=== PATIENT | male | born 1940 | race Caucasian/White ===

== ENCOUNTER 2021-01-24 02:29 | Inpatient (IN) ==
[2021-01-24 04:25] LABS: Basophils # (auto) 0.02 K/uL (0-0.2); Basophils % (auto) 0.2 %; Eosinophils # (auto) 0.04 K/uL (0-0.5); Eosinophils % (auto) 0.5 %; Hematocrit (blood only) 36.1 % (42-52); Hemoglobin 12.3 g/dL (14.0-18.0); Lymphocytes # (auto) 1.28 K/uL (1.2-3.4); Lymphocytes % (auto) 15.8 %; Mean Corpuscular Hemoglobin 33.3 pg (25-34); Mean Corpuscular Hgb Conc 34.1 g/dL (32-36); Mean Corpuscular Volume 97.8 fL (80-100); Mean Platelet Volume 10.7 fL (7.4-10.4); Monocytes # (auto) 0.46 K/uL (0.11-0.59); Monocytes % (auto) 5.7 %; Neutrophils # (auto) 6.32 K/uL (1.4-6.5); Neutrophils % (auto) 77.8 %; Platelet Count 145 K/uL (130-400); RDW Coefficient of Variation 13.8 % (11.5-14.5); Red Blood Count 3.69 M/uL (4.7-6.1); White Blood Count 8.12 K/uL (4.8-10.8)
[2021-01-24 04:41] LABS: Alanine Aminotransferase 45 (12-78); Albumin Level 3.6 gm/dl (3.4-5.0); Aspartate Aminotransferase 38 U/L (15-37); BUN Creatinine Ratio 22.2 (10-20); Blood Urea Nitrogen 33 mg/dl (7-18); Calcium 9.4 mg/dl (8.5-10.1); Carbon Dioxide 27 mmol/L (21-32); Chloride 108 mmol/L (98-107); Est GFR (African American) 50.2 ml/min; Est GFR (Non-African American) 43.3 ml/min; Glucose 174 mg/dl (70-99); Potassium 4.5 mmol/L (3.5-5.1); Sodium 139 mmol/L (136-145)
[2021-01-24] MEDS ORDERED: SODIUM CHLORIDE 0.9% 500 ML IV ONE (04:49)
[2021-01-24 05:12] LABS: Albumin Globulin Ratio 1.2 (0.9-2); Alkaline Phosphatase 96 U/L (45-117); Bilirubin,Total 1.6 mg/dl (0.2-1); Globulin 3.1 gm/dl (2.5-4.0); Total Protein 6.7 gm/dl (6.4-8.2); Troponin I 0.078 ng/ml (0-0.045)
[2021-01-24] MEDS ORDERED: ASPIRIN CHEW 324 MG PO STA (06:16)
[2021-01-24] MEDS ORDERED: OLANZapine ZYDIS 5 MG ORALLY DIS. TAB PO STA (06:16)
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
[2021-01-24] MEDS ORDERED: OLANZapine 10 MG/2.1 ML SDV IM ONE (07:52)
[2021-01-24] MEDS ORDERED: OLANZapine 10 MG/2.1 ML SDV IM PRN (07:59)
[2021-01-24] MEDS ORDERED: SODIUM CHLORIDE 0.9% 1000ML 1,000 ML IV SCH (07:59)
[2021-01-24] MEDS ORDERED: NITROGLYCERIN SL 0.4 MG/TAB TAB SL PRN (07:59)
[2021-01-24] MEDS ORDERED: PATIENT'S HEIGHT AND/OR WEIGHT NEEDED SCH (08:15)
--- NOTE | 2021-01-24 08:51 | History and Physical Report ---
DATE OF ADMISSION: 01/24/2021. CHIEF COMPLAINT: Agitation. HISTORY OF PRESENT ILLNESS: An 80-year-old male with past medical history significant for type 2 diabetes, aortic ectasia of the abdominal, aortic regurgitation, aortic root dilatation, history of benign neoplasm of colon, chronic kidney disease stage III, hypertension, history of dementia, history of thrombocytopenia, history of ST elevated NE, presents with agitation. The patient lives with his . states the patient is getting more confused and agitated at home for the last 1 week. Saw family doctor, has prescribed Seroquel. He just got one dose last night and was getting more agitated and she called the die tripper last night. The patient was combative with the die tripper, unable to calm him, die tripper brought him here. Labs are okay except for some slight elevation of troponin. The patient is currently resting comfortably, hemodynamically stable. is in the room. gives most of the history. There was no fever or chills. No cough, no nausea, no vomiting, no complaints of any pain, no diarrhea or constipation. He walks without support, but gait is somewhat unsteady. His appetite is down for the last 1 week. The patient is somewhat sleepy, but he is talking okay, says he is doing okay and he is hallucinating, he is seeing some bugs and people in the room, but he seems calmer. ALLERGIES: PENICILLINS. PAST MEDICAL HISTORY: As mentioned above. PAST SURGICAL HISTORY: Colonoscopies, cataracts. MEDICATIONS: As per the , patient is on Seroquel 50 mg p.o. at bedtime, Ativan 0.5 mg p.o. 8 hours p.r.n., Imdur 60 mg p.o. daily in the morning, losartan 100 mg p.o. daily, Toprol-XL 12.5 mg p.o. daily, glipizide 5 mg b.i.d., hydrochlorothiazide 12.5 mg p.o. daily, metformin 500 mg p.o. b.i.d., magnesium 400 mg p.o. daily on Monday, Monday, and Monday; amlodipine 5 mg p.o. daily, atorvastatin 80 mg p.o. daily, Nitrostat 0.4 mg p.o. sublingual p.r.n., azithromycin 500 mg, aspirin 81 mg p.o. daily. FAMILY HISTORY: Significant for mother has diabetes, cancer of unknown type; father had NE. SOCIAL HISTORY: , lives with . Former smoker, quit in 1985, smoked 1 pack a day for 13 years. History of occasional drinking before, not drinking currently. No drug use. REVIEW OF SYSTEMS: As per HPI. Could not get review of systems as the patient is confused, has dementia and hallucinating. PHYSICAL EXAMINATION: VITAL SIGNS: Temperature 36.5, pulse 74, respiratory rate 18, blood pressure 116/40, oxygen 95% on room air. HEENT: Pupils equal, round and reactive to light. Oral mucosa moist. Atraumatic. NECK: No neck masses seen. CARDIOVASCULAR: S1 and S2 heard. Regular rate and rhythm. No murmur, no gallop. RESPIRATORY SYSTEM: Normal AP diameter. No accessory muscle use. No wheezing, no crackles. ABDOMEN: Soft, bowel sounds present, nontender, no distention. CENTRAL NERVOUS SYSTEM: Sleepy, but oriented to name and place. Obeys simple commands. No facial droop. Speech is clear. Moves extremities. EXTREMITIES: No edema, no erythema. LABORATORY DATA: WBC 8.1, hemoglobin 12.3, hematocrit 36.1, platelets 145. Sodium 139, potassium 4.5, chloride 108, bicarbonate 27, BUN 33, creatinine 1.5, serum glucose 174, calcium 9.4, total bilirubin 1.6, AST 38, ALT 45, alkaline phosphatase 96. Troponin-I 0.07. TSH 2.4. IMAGING DATA: CT of the head, preliminary report, no acute findings. Chest x- ray, no acute findings. EKG: Atrial paced rhythm with prolonged AV conduction, left axis deviation, right bundle-branch block. ASSESSMENT AND PLAN: An 80-year-old male who was brought in from home for agitation. 1. Agitation: The patient is known to have a history of dementia, recently started with Seroquel by PCP, got one dose last night as per the . CT of the head, preliminary report unremarkable. Labs unremarkable except for mild troponin elevation. We will get a vitamin B12, vitamin B1 and folic acid levels. Monitor in the med [facility]. ER ordered p.o. Zyprexa, we will place him on IM Zyprexa 2.5 mg q. 4 hours p.r.n. Consult Neurology and consult psychiatrist for further recommendation, one-on-one observation in the hospital. says, if needed she is okay for placement in a halfway. 2. History of tachybrady syndrome, status post pacemaker. 3.Mild elevation of troponin, mostly demand ischemia. Follow serial cardiac enzymes and echocardiogram. EKG, no acute findings. 4. History of severe aortic regurgitation. Monitor for volume status, recent Cardiology visit recommended nonsurgical medical management. 5. Acute kidney injury and chronic kidney disease stage III, baseline creatinine 1.2, present creatinine 1.5. Getting gentle fluids. We will follow the repeat labs in the a.m. 6. Diabetes. Hold his home meds, placed on insulin sliding scale. Follow the blood sugars. Follow HbA1c levels. 7. History of coronary artery disease, status post drug-eluting stents to LAD. Continue his home medications. 8.enlargement in aortic root. Follows with Cardiology and follow the echocardiogram. 9. Hyperlipidemia: Continue statin. 10. Hypertension: Continue his home medication of losartan, metoprolol, amlodipine and Imdur. We will follow the blood pressure. 11. History of anemia Seemed followed up with Hematology in 08/2018 and observation recommended. 12. History of thrombocytopenia, platelets are okay and will follow the labs. 13. Deep venous thrombosis prophylaxis: Placed on Lovenox. 14. Mild elevation in total bilirubin, we will follow the repeat labs DISPOSITION: . Admit to med tele. PT/OT prior to discharge. Social service to help with discharge planning. Level 1 full code as per my discussion with the . Job ID: [id number] MTDD
[2021-01-24] MEDS: ENOXAPARIN INJ 40 MG/0.4 ML SYR SQ SCH (09:00)
[2021-01-24] MEDS ORDERED: LORazepam 2 MG/4 ML VIAL ONE (09:13)
--- NOTE | 2021-01-24 09:13 | XRay Report ---
XR chest 1V portable CLINICAL HISTORY: weakness. Evaluate cardiopulmonary status COMPARISON STUDY: 07/07/2020 TECHNIQUE: 1 view of the chest FINDINGS: Single frontal view of the chest demonstrates the cardiomediastinal silhouette to be within normal li mits. Precardiac pacer is again seen. The lungs are clear of alveolar opacities. There is no evidence for pleural effusion. There is no evidence for vascular congestion. There is no acute osseous pathol ogy. IMPRESSION: No acute cardiopulmonary disease. ACT 112: Negative or not required by law. Electronically signed by: Darwin Dallas M.D. 01/24/2021 9:12 AM
--- NOTE | 2021-01-24 09:21 | CT Scan Report ---
CT head/brain wo con CLINICAL HISTORY: AMS COMPARISON STUDY: No previous studies for comparison. CT DOSE: 691.05 mGy.cm TECHNIQUE: Standard CT of the Brain was performed without IV contrast. A dose lowering technique was utilized adhering to the principles of ALARA. FINDINGS: Extraaxial space: There is no evidence for subdural hematoma. There are no extra-axial fluid collecti ons. Ventricles and cisterns: The ventricles are mildly to moderately dilated bilaterally. There is no ev idence for midline shift or mass effect. Parenchyma: There is no subarachnoid or intraparenchymal hemorrhage. There is no evidence for an acu te infarct or cerebral edema. There is mild cerebral cortical atrophy and decreased attenuation in th e periventricular white matter representing remote small vessel disease. There are no gross mass lesi ons. Osseous structures: There is no evidence for an acute fracture. The visualized paranasal sinuses are clear. The mastoid air cells are clear bilaterally. Soft tissues: There is no evidence for focal soft tissue swelling. IMPRESSION: No acute intracerebral pathology. Cerebral cortical atrophy and remote small vessel disea se are seen. ACT 112: Negative or not required by law. Electronically signed by: Darwin Dallas M.D. 01/24/2021 9:19 AM
[2021-01-24] MEDS: INSULIN ASPART PER UNIT SC SCH ×4 (09:29→20:28)
--- NOTE | 2021-01-24 15:27 | Communication Note ---
Date of Service: January 24, 2021 Chart reviewed Patient seen examined bedside Patient's at bedside Seen sitting up in bed, not in distress, confused, but calm and cooperative Oriented to 's name, but not to place and time Vitals as noted Not in distress Clear breath sounds bilaterally bilaterally, normal regular rhythm no murmurs Abdomen soft nontender No edema noted Possible underlying cognitive disorder, with behavioral disturbance Discussed with psychiatrist Dr. Monzon Recommend Seroquel 12.5 mg p.o. twice daily, Zyprexa 2.5 mg IM every 6 hours as needed for agitation Does not recommend Ativan as needed Continue reorientation, delirium prevention strategies Yuval Joaquin MD
[2021-01-24] MEDS ORDERED: GLUCOSE 10 TABS/TUBE PO PRN (15:30)
[2021-01-24] MEDS ORDERED: GLUCAGON FOR INJ 1 MG VIAL IM PRN (15:30)
[2021-01-24] MEDS ORDERED: GLUCOSE 40% GEL 15 GM TUBE PO PRN (15:30)
[2021-01-24] MEDS ORDERED: DEXTROSE 50% 50 ML SYRINGE IV PRN (15:30)
[2021-01-24] MEDS ORDERED: CARBOHYDRATES FOR HYPOGLYCEMIA PO PRN (15:30)
--- NOTE | 2021-01-24 15:41 | Psychiatric Consultation ---
Date of Consultation January 24, 2021 Impression / Recommendations Impression 80 yo man with major neurocognitive disorder with behavioral disturbance with worsening agitation and confusion over the last week. This could represent worsening of his dementia versus superimposed delirium. Appropriate to start seroquel given level of aggression and agitation causing danger to himself and others though recommend using the lowest necessary dose given black box risk for increased all cause mortality in dementia and potential for QTc changes and he presented with some concern for cardiac changes. (1) Major neurocognitive disorder due to Alzheimer's disease, with behavioral disturbance: -Needs 1-1 for now for behavioral redirection -Start seroquel 12.5 mg BID for agitation -For behavioral emergency could use olanzapine 2.5 mg IM x1 (up to max of 10mg per 24 hours). Evaluate QTc if multiple IM doses are needed in a day. -May require higher level of care given worsening agitation -Continue with medical workup to rule out causes for reversible delirium adding to agitation and confusion -Continue with delirium prevention with frequent re-orientation, attempting to open blinds during the day, having pictures/phone calls or visits from family, can use melatonin 3mg qhs if sleep is disrupted -Discussed with Dr. Joaquin Psych History Identifying Data 80 yo man with major neurocognitive disorder and multiple medical comorbidities was admitted medically after increased behaviors of agitation at home. Psychiatry was consulted for medication management and recommendations. Chief Complaint "Isn't she a nice lady, she has some May in her". History of Present Illness Aureliano Day is resting in bed comfortably on assessment. Is not oriented to place or time. When given option of being in school vs cheondoism vs hospital he responds "it's all of them". is receptive to re-orientation of being in the hospital. Pleasantly discusses his - and speaks about enjoying going to the [employer] though has notable word finding difficulty. Does not recall or understand why he is in the hospital. Per chart review he was started on seroquel 25mg qhs yesterday by his PCP for increased aggression at home and confusion over the last 1 week. Yesterday family gave him the seroquel but aggression persisted resulting in family needing to call police who then brought him to the hospital. Code trejo this morning for behavioral agitation and aggression resulting in olanzapine 2.5mg IM x1. Past Psychiatric History Previous Psych History: none known Allergies Allergy/AdvReac Type Severity Reaction Status Date / Time Penicillins Allergy Intermediate TOES Unverified 01/24/21 14:46 SWELL/ITCHY Home Medications Medication Instructions Recorded Confirmed Type amlodipine 5 mg tablet 5 mg PO DAILY 07/07/20 01/24/21 History glipizide 5 mg tablet 5 mg PO BID 07/07/20 01/24/21 History hydrochlorothiazide 12.5 mg capsule 12.5 mg PO DAILY 07/07/20 01/24/21 History isosorbide mononitrate 60 mg 60 mg PO QAM 07/07/20 01/24/21 History tablet,extended release 24 hr aspirin 81 mg tablet,delayed 81 mg PO DAILY 01/24/21 01/24/21 History release atorvastatin 80 mg tablet 80 mg PO DAILY 01/24/21 01/24/21 History azithromycin 500 mg tablet 500 mg PO DAILY 01/24/21 01/24/21 History ergocalciferol (vitamin D2) 1,000 10 mcg PO DAILY 01/24/21 01/24/21 History unit capsule lorazepam 0.5 mg tablet 0.5 mg PO BID PRN 01/24/21 01/24/21 History losartan 100 mg tablet 100 mg PO DAILY 01/24/21 01/24/21 History metformin 500 mg tablet 500 mg PO BID 01/24/21 01/24/21 History metoprolol succinate 25 mg capsule 25 mg PO DAILY 01/24/21 01/24/21 History sprinkle, ext. release 24 hr nitroglycerin 0.4 mg sublingual 0.4 mg SUBLINGUAL DAILY 01/24/21 01/24/21 History tablet quetiapine 50 mg tablet (Seroquel) 50 mg PO HS 01/24/21 01/24/21 History Personal History Living Arrangements: Home (with his and daughter) Beliefs That Will Affect Care: None Patient History Medical History Agitation due to dementia Aortic regurgitation CKD (chronic kidney disease), stage III Type 2 diabetes mellitus with unspecified complications Surgical History H/O colonoscopy History of appendectomy Social History Smoking Status: Never smoker Second Hand Exposure: No; Do You Dip or Chew Tobacco: No; Tobacco Cessation Education Requested by Patient: No Hx Alcohol Use: No Hx Substance Use: No Preferred Language: Monegasque Communication Ability: Effective Accredited Farm Manager Required: No Beliefs That Will Affect Care: None Current Living Situation: Spouse Other Information That Helps Us Care for You: No Feels Safe at Home: Yes Safety Concerns: Feels Safe At This Time Assistive Devices: Glasses Physical Exam Psychiatric: Orientation: alert and oriented to person; + not oriented to place and + not oriented to time Apperance: appropriately dressed and appropriately groomed Eye Contact: good eye contact Motor Behavior: no abnormal motor movements; n EPS Speech: normal rate/rhythm/volume of speech Affect: euthymic affect Mood: no depressed mood, no anxious mood and no irritable mood Thought Process: + concrete thought process Thought Content: reality based without delusions Suicidal Thoughts: denies suicidal thoughts Homicidal Thoughts: denies homicidal thoughts Hallucinations: no auditory hallucinations and no visual hallucinations Cognition: remote memory grossly intact and attention grossly intact; + recent memory not intact and + language not intact Insight: + impaired insight Judgement: + severely impaired judgement Vital Signs (Past 24 Hours): Last Vital Signs Temp 36.7 C 01/24/21 10:00 Pulse 76 01/24/21 12:03 Resp 20 01/24/21 12:03 BP 165/63 H 01/24/21 12:03 Pulse Ox 97 01/24/21 12:03 Review of Systems Unobtainable due to cognitive status (he denies any pain ) Results & Data (PSY) Medications Administered Enoxaparin Sodium (Enoxaparin Inj 40 Mg/0.4 Ml Syr) 40 mg SQ Q24H [facility] Stop: 02/23/21 08:59 Last Admin: 01/24/21 09:00 Dose: 40 mg Documented by: [id number] Insulin Aspart (Insulin Aspart Per Unit) 0 units SC ACHS [facility] Stop: 02/23/21 07:58 Last Admin: 01/24/21 14:04 Dose: 9 units Documented by: [id number] Cosigned by: [id number] Admin: 01/24/21 09:29 Dose: Not Given Documented by: [id number] Coding Level of Care Code 03012 Inpt Consult Level 2 Diagnoses Major neurocognitive disorder due to Alzheimer's disease, with behavioral disturbance G30.9; F02.81
[2021-01-24 15:42] LABS: Appearance Urine Clear (Clear); Bilirubin Urine Negative (Negative); Blood Urine Negative (Negative); Color Urine Yellow; Glucose Urine UA 2+ (Negative); Ketones Urine Negative (Negative); Leukocyte Esterase Urine Negative (Negative); Nitrite Urine Negative (Negative); Protein Urine Negative (Negative); Specific Gravity Urine 1.011 (1.000-1.030); Urobilinogen Urine Negative (Negative); pH Urine 7.5 (4.5-7.5)
[2021-01-24] MEDS: OLANZapine 10 MG/2.1 ML SDV IM PRN (20:29)
[2021-01-24] MEDS: QUEtiapine FUMARATE 25 MG TABLET PO SCH (20:40)
--- NOTE | 2021-01-24 21:51 | Electrocardiogram Report ---
Test Reason : Blood Pressure : / mmHG Vent. Rate : 064 BPM Atrial Rate : 064 BPM P-R Int : 304 ms QRS Dur : 140 ms QT Int : 468 ms P-R-T Axes : 035 -33 -06 degrees QTc Int : 482 ms Atrial-paced rhythm with prolonged AV conduction Left axis deviation Right bundle branch block Minimal voltage criteria for LVH, may be normal variant Septal infarct , age undetermined Abnormal ECG When compared with ECG of 07-JUL-2020 14:48, Septal infarct is now Present Confirmed by Aureliano Sol ([id number]) on 01/24/2021 9:50:41 PM Referred By: REFERRED SELF Confirmed By:Aureliano Sol
--- NOTE | 2021-01-24 22:03 | Consultation Report ---
NEUROLOGY CONSULTATION NOTE DATE OF CONSULTATION: 01/24/2021. CHIEF COMPLAINT: Agitation. HISTORY OF PRESENT ILLNESS: An 80-year-old male with history of dementia as well as other comorbidit ies including type 2 diabetes, chronic kidney disease and hypertension, brought to the Emergency Depa rtment last evening for agitation. The patient lives at home with his . He is a poor historian; therefore, history is limited. is not at bedside. According to the chart, the patient was bro ught in confused and agitated; last week, he has been on and off more agitated at home. He did see t family doctor and was prescribed Seroquel. He received one dose last night was getting more agita wally and the police were called. The patient was combative toward the mental health program specialist and they were unable to ca lm him down, therefore, he was brought to the Emergency Department. He had no fevers or chills. He was hemodynamically stable. was concerned that he may need potential correction facility p lacement as she was having a difficult time taking care of him. There was reported visual hallucinat ions including seeing bugs and people in the room, but he seems to be calmer when he was seen in the Emergency Department. Psychiatry as well as neurology were consulted upon admission. ALLERGIES: PENICILLINS. PAST MEDICAL HISTORY: Type 2 diabetes, hypertension, benign neoplasm of the colon, chronic kidney di sease, dementia, thrombocytopenia, history of ST elevated MS. PAST SURGICAL HISTORY: Colonoscopy, cataract surgery. HOME MEDICATIONS: Seroquel 50 mg at bedtime, Ativan as needed, Imdur, Toprol-XL, glipizide, hydrochl orothiazide, metformin, magnesium, atorvastatin, azithromycin, aspirin 81 mg daily. FAMILY HISTORY: Mother has diabetes and cancer of unknown type. Father had myocardial infarction. SOCIAL HISTORY: He is and lives with his . Former smoker, quit in 1985, history of occa sional drinking. No illicit drug use. REVIEW OF SYSTEMS: Unable to be obtained due to severe dementia. PHYSICAL EXAMINATION: VITAL SIGNS: Blood pressure 158/55, pulse is 78, respiratory rate is 20, temperature is 36.7 degrees Celsius, oxygen saturation is 97% on room air. GENERAL: The patient appears stated age, thin-appearing male, no distress, he is lying in bed, uprig ht. HEENT: Head is normocephalic and atraumatic. He has normal eyelids. Normal conjunctivae. NECK: Supple. LUNGS: Normal respiratory effort. CARDIAC: Pulses are intact. ABDOMEN: Nondistended. SKIN: No skin rash. PSYCHIATRIC: Normal mood currently, normal affect. NEUROLOGIC: He is awake, alert, disoriented to place, disoriented to age, disoriented to time, orien wally to his name only. Attention is decreased. Knowledge is poor. He is following simple commands. His speech is clear. His pupils are symmetric. His eyes are midline. Facial sensation is intact. No facial asymmetry. Intact hearing. Palate is symmetric. He is holding his head upright. His to ngue is midline. Gait evaluation deferred. No tremor on exam. Sensation is intact to light touch. Muscle tone is normal. DIAGNOSTIC TESTING AND LABORATORY VALUES: WBC 8.12, hemoglobin 12.3, platelet count 145. Sodium is 139, potassium 4.5, chloride 108, carbon dioxide 27, BUN is 33, creatinine 1.5. Urinalysis was clear , 2+ glucose, no bacteria. IMAGING: Head CT noncontrast showed no acute intracranial abnormality. Cerebral cortical atrophy an d remote small vessel ischemic disease. Chest x-ray showed no acute cardiopulmonary disease. COVID-19 was negative. ASSESSMENT AND PLAN: An 80-year-old male with presumed severe Alzheimer's dementia with intermittent hyperactive delirium/agitation. Case discussed with psychiatry this afternoon and agree with use of Seroquel 12.5 mg twice daily, which can be titrated as tolerated. While admitted to the hospital, w ould strongly recommend avoiding narcotics or benzodiazepines or other sedative agents such as Benadr yl. If necessary, can use Zyprexa IM 2.5-5 mg q.12 hours as needed. If agitation persists despite t he use of Seroquel, would recommend adding Depakote 250 mg twice daily and titrating as tolerated. Audelia miner, please contact me with any additional questions or concerns. The patient can follow otherw ise up with his PCP upon discharge as needed. Job ID: [id number]
[2021-01-25 05:46] LABS: Basophils # (auto) 0.02 K/uL (0-0.2); Basophils % (auto) 0.2 %; Eosinophils # (auto) 0.01 K/uL (0-0.5); Eosinophils % (auto) 0.1 %; Hemoglobin 13.8 g/dL (14.0-18.0); Immature Granulocytes # (auto) 0.02 K/uL (0.00-0.02); Immature Granulocytes % (auto) 0.2 %; Lymphocytes # (auto) 1.43 K/uL (1.2-3.4); Lymphocytes % (auto) 16.1 %; Mean Corpuscular Hemoglobin 32.5 pg (25-34); Mean Corpuscular Hgb Conc 33.7 g/dL (32-36); Mean Corpuscular Volume 96.5 fL (80-100); Mean Platelet Volume 10.5 fL (7.4-10.4); Monocytes # (auto) 0.57 K/uL (0.11-0.59); Monocytes % (auto) 6.4 %; Neutrophils # (auto) 6.81 K/uL (1.4-6.5); Platelet Count 140 K/uL (130-400); RDW Coefficient of Variation 13.8 % (11.5-14.5); RDW Standard Deviation 48.8 fL (36.4-46.3); Red Blood Count 4.25 M/uL (4.7-6.1); White Blood Count 8.86 K/uL (4.8-10.8)
[2021-01-25 06:19] LABS: Partial Thromboplastin Ratio 0.9; Partial Thromboplastin Time 23.9 Seconds (21.0-31.0); Prothrombin Time 10.4 Seconds (9.0-12.0)
[2021-01-25 06:39] LABS: BUN Creatinine Ratio 17.6 (10-20); Bilirubin Direct 0.3 mg/dl (0-0.2); Bilirubin,Total 2.6 mg/dl (0.2-1); Creatinine Clr Calc Pharmacy 43.6 ml/min; Est GFR (African American) 64.5 ml/min; Est GFR (Non-African American) 55.6 ml/min; Potassium 4.4 mmol/L (3.5-5.1); Total Protein 7.6 gm/dl (6.4-8.2)
[2021-01-25 07:21] LABS: Magnesium 1.8 mg/dl (1.8-2.4)
[2021-01-25 07:34] LABS: Folate (Folic Acid) 13.9 ng/ml (>5.38)
[2021-01-25 07:39] LABS: Estimated Average Glucose 157 mg/dl; Hemoglobin A1C 7.1 % (4.5-5.6)
[2021-01-25] MEDS: INSULIN ASPART PER UNIT SC SCH ×4 (09:41→20:23)
[2021-01-25] MEDS: ENOXAPARIN INJ 40 MG/0.4 ML SYR SQ SCH (10:09)
[2021-01-25] MEDS: QUEtiapine FUMARATE 25 MG TABLET PO SCH ×2 (10:09→20:06)
[2021-01-25] MEDS: hydrALAZINE HCL 20 MG/ML VIAL IV PRN (12:22)
--- NOTE | 2021-01-25 13:17 | Hospitalist Progress Note ---
Date of Service January 25, 2021 Assessment & Plan (1) Major neurocognitive disorder due to Alzheimer's disease, with behavioral disturbance: Plan: ASSESSMENT AND PLAN: An 80-year-old male who was brought in from home for agitation. 1. Major neurocognitive disorder, due to Alzheimer's disease, with behavioral disturbance Per admitting physician's notes: The patient is known to have a history of dementia, recently started with Seroquel by PCP, got one dose last night as per the . CT of the head, preliminary report unremarkable. Labs unremarkable except for mild troponin elevation. Evaluated by neurology and psychiatry service Recommend Seroquel 12.5 mg p.o. twice daily Zyprexa 2.5 mg every 6 hours as needed for agitation No benzodiazepines, narcotics, Benadryl If agitation continues, recommend Depakote 2. History of tachybrady syndrome, status post pacemaker. Monitor in telemetry unit 3.Mild elevation of troponin, mostly demand ischemia. Troponin went down from 0.3, to 0.2 EKG no acute ischemia Echocardiogram: Pending as patient is agitated 4. History of severe aortic regurgitation. Euvolemic Recent Cardiology visit recommended nonsurgical medical management. 5. Acute kidney injury and chronic kidney disease stage III, baseline cre atinine 1.2, present creatinine 1.5. Resolved after IV fluids 6. Diabetes. Hold his home meds, placed on insulin sliding scale. a1c 7.1 7. History of coronary artery disease, status post drug-eluting stents to LAD. Continue his home medications. 8.enlargement in aortic root. Follows with Cardiology and follow the echocardiogram. 9. Hyperlipidemia: Continue statin. 10. Hypertension: BP elevated, likely secondary to agitation As needed hydralazine ordered Continue his home medication of losartan, metoprolol, amlodipine and Imdur. 11. History of anemia followed up with Hematology in 08/2018 and observation recommended. 12. History of thrombocytopenia Plt stable 13. Deep venous thrombosis prophylaxis: Placed on Lovenox. 14. Mild elevation in total bilirubin Check liver ultrasound Admission and Anticipated Discharge Date Admission Date: January 24, 2021 Subjective ff up for altered mental status, agitation, etc seen resting in bed, sleeping not in distress per [employer]ION[employer] EDUCATION MANAGER, has been calm, cooperative so far didnt eat much for breakfast no other symptoms Review of Systems Review of Systems: Unobtainable due to cognitive status Physical Exam Physical Exam: General- sleeping, breathing with no effort or accessory muscle use Eyes- anicteric Neck- no JVD Lungs- clear breath sounds bilaterally, no rales/wheezes Heart- normal rate, regular rhythm; no murmurs Abdomen- normal bowel sounds, nondistended, soft, nontender Extremities- no pretibial edema, no calf tenderness Neuro- sleeping Skin- warm & dry Results & Data Results & Data ([facility]) Vital Signs (Past 12 Hours) Vital Signs Temp Pulse Resp BP Pulse Ox 01/25/21 09:33 36.3 C L 105 H 18 166/60 H 94 all noted and reviewed including below
--- NOTE | 2021-01-25 13:32 | Psychiatric Progress Note ---
Date of Service January 25, 2021 Impression / Recommendations Impression 80 yo man with major neurocognitive disorder with behavioral disturbance with worsening agitation and confusion over the last week. This could represent worsening of his dementia versus superimposed delirium. Appropriate to start seroquel given level of aggression and agitation causing danger to himself and others though recommend using the lowest necessary dose given black box risk for increased all cause mortality in dementia and his elevated QTc. Risks/benefit profile continues to favor low dose antipsychotic use, even with QTc changes, given high level of aggression but QTc will need to be monitored closely. 01/25/21: Elevated QTc on EKG yesterday. Likely from high dose of IM olanzapine earlier in the day (10mg) on arrival to the ED. Recommend daily EKGs and continuing to utilize behavioral strategies for redirection as much as possible to avoid IM medications as much as possible. (1) Major neurocognitive disorder due to Alzheimer's disease, with behavioral disturbance: 01/25/21: Daily EKGs due to QTc prolongation, may want to consider cardiology input re: safety of ongoing use of QTc prolonging agents, continue with seroquel 12.5 mg BID, for behavioral emergency olanzpaine 2.5 mg IM x 1 (not to exceed 10mg per 24 hours). 01/24/21: -1-one-1 for now for behavioral redirection -Start seroquel 12.5 mg BID for agitation -For behavioral emergency could use olanzapine 2.5 mg IM x1 (up to max of 10mg per 24 hours). Evaluate QTc if multiple IM doses are needed in a day. -May require higher level of care given worsening agitation -Continue with medical workup to rule out causes for reversible delirium adding to agitation and confusion -Continue with delirium prevention with frequent re-orientation, attempting to open blinds during the day, having pictures/phone calls or visits from family, can use melatonin 3mg qhs if sleep is disrupted -Discussed with Dr. Joaquin Interval History Identifying Information 80 yo man with major neurocognitive disorder and multiple medical comorbidities was admitted medically after increased behaviors of agitation at home. Psychiatry was consulted for medication management and recommendations. Chief Complaint "I need my suitcase". Review of Systems Notes Unable to assess ROS due to cognitive impairment. Subjective Subjective Patient was seen & assessed and interval progress reviewed. Received olazapine 2.5 mg IM at ~2pm yesterday and again at ~8pm. Took po seroquel. Today lying in bed moving his legs around but resistant to staff efforts to help him readjust. He is not oriented. Significant word finding difficulty. Unable to converse Physical Exam Psychiatric Orientation: alert and oriented to person; + not oriented to place and + not oriented to time Apperance: appropriately dressed and appropriately groomed Eye Contact: good eye contact Motor Behavior: no abnormal motor movements; n EPS Speech: normal rate/rhythm/volume of speech Affect: euthymic affect Mood: no depressed mood, no anxious mood and no irritable mood Thought Process: + concrete thought process Thought Content: reality based without delusions Suicidal Thoughts: denies suicidal thoughts Homicidal Thoughts: denies homicidal thoughts Hallucinations: no auditory hallucinations and no visual hallucinations Cognition: remote memory grossly intact and attention grossly intact; + recent memory not intact and + language not intact Insight: + impaired insight Judgement: + severely impaired judgement Vital Signs (Past 24 Hours) Last Vital Signs Temp 36.3 C L 01/25/21 09:33 Pulse 105 H 01/25/21 09:33 Resp 18 01/25/21 09:33 BP 166/60 H 01/25/21 09:33 Pulse Ox 94 01/25/21 09:33 Results & Data ([facility]) Laboratory Results Laboratory Results - last 24 hr 01/24/21 01/24/21 01/24/21 15:25 15:48 16:50 WBC RBC Hgb Hct MCV MCH MCHC RDW Std Deviation RDW Coeff of Tg Plt Count MPV Immature Gran % (Auto) Neut % (Auto) Lymph % (Auto) [place] % (Auto) Eos % (Auto) Baso % (Auto) Neut # (Auto) Lymph # (Auto) [place] # (Auto) Eos # (Auto) Baso # (Auto) Immature Gran # (Auto) PT INR APTT PTT Ratio Sodium Potassium Chloride Carbon Dioxide Anion Gap BUN Creatinine Est Cr Clr Drug Dosing Est GFR ( Amer) Est GFR (Non-Af Amer) BUN/Creatinine Ratio Glucose POC Glucose 132 H Estimat Average Glucose Hemoglobin A1c Calcium Magnesium Total Bilirubin Direct Bilirubin AST ALT Alkaline Phosphatase Troponin I 0.263 H* Total Protein Albumin Whole Bld Vitamin B1 Vitamin B12 Folate Urine Color Yellow Urine Appearance Clear Urine pH 7.5 Ur Specific Bradley 1.011 Urine Protein Negative Urine Glucose (UA) 2+ H Urine Ketones Negative Urine Blood Negative Urine Nitrite Negative Urine Bilirubin Negative Urine Urobilinogen Negative Ur Leukocyte Esterase Negative 01/24/21 01/25/21 01/25/21 20:25 05:37 05:37 WBC RBC Hgb Hct MCV MCH MCHC RDW Std Deviation RDW Coeff of Tg Plt Count MPV Immature Gran % (Auto) Neut % (Auto) Lymph % (Auto) [place] % (Auto) Eos % (Auto) Baso % (Auto) Neut # (Auto) Lymph # (Auto) [place] # (Auto) Eos # (Auto) Baso # (Auto) Immature Gran # (Auto) PT 10.4 INR 1.0 APTT 23.9 PTT Ratio 0.9 Sodium 142 Potassium 4.4 Chloride 110 H Carbon Dioxide 25 Anion Gap 7.0 BUN 22 H Creatinine 1.22 Est Cr Clr Drug Dosing 43.6 Est GFR ( Amer) 64.5 Est GFR (Non-Af Amer) 55.6 BUN/Creatinine Ratio 17.6 Glucose 187 H POC Glucose 181 H Estimat Average Glucose Hemoglobin A1c Calcium 10.0 Magnesium 1.8 Total Bilirubin 2.6 H D Direct Bilirubin 0.3 H AST 41 H ALT 44 Alkaline Phosphatase 110 Troponin I Total Protein 7.6 Albumin 4.0 Whole Bld Vitamin B1 Vitamin B12 Folate Urine Color Urine Appearance Urine pH Ur Specific Bradley Urine Protein Urine Glucose (UA) Urine Ketones Urine Blood Urine Nitrite Urine Bilirubin Urine Urobilinogen Ur Leukocyte Esterase 01/25/21 01/25/21 01/25/21 05:37 05:37 05:37 WBC 8.86 RBC 4.25 L Hgb 13.8 L Hct 41.0 L MCV 96.5 MCH 32.5 MCHC 33.7 RDW Std Deviation 48.8 H RDW Coeff of Tg 13.8 Plt Count 140 MPV 10.5 H Immature Gran % (Auto) 0.2 Neut % (Auto) 77.0 Lymph % (Auto) 16.1 [place] % (Auto) 6.4 Eos % (Auto) 0.1 Baso % (Auto) 0.2 Neut # (Auto) 6.81 H Lymph # (Auto) 1.43 [place] # (Auto) 0.57 Eos # (Auto) 0.01 Baso # (Auto) 0.02 Immature Gran # (Auto) 0.02 PT INR APTT PTT Ratio Sodium Potassium Chloride Carbon Dioxide Anion Gap BUN Creatinine Est Cr Clr Drug Dosing Est GFR ( Amer) Est GFR (Non-Af Amer) BUN/Creatinine Ratio Glucose POC Glucose Estimat Average Glucose Hemoglobin A1c Calcium Magnesium Total Bilirubin Direct Bilirubin AST ALT Alkaline Phosphatase Troponin I Total Protein Albumin Whole Bld Vitamin B1 Pending Vitamin B12 453 Folate 13.90 Urine Color Urine Appearance Urine pH Ur Specific Bradley Urine Protein Urine Glucose (UA) Urine Ketones Urine Blood Urine Nitrite Urine Bilirubin Urine Urobilinogen Ur Leukocyte Esterase 01/25/21 01/25/21 01/25/21 05:37 09:30 11:43 WBC RBC Hgb Hct MCV MCH MCHC RDW Std Deviation RDW Coeff of Tg Plt Count MPV Immature Gran % (Auto) Neut % (Auto) Lymph % (Auto) [place] % (Auto) Eos % (Auto) Baso % (Auto) Neut # (Auto) Lymph # (Auto) [place] # (Auto) Eos # (Auto) Baso # (Auto) Immature Gran # (Auto) PT INR APTT PTT Ratio Sodium Potassium Chloride Carbon Dioxide Anion Gap BUN Creatinine Est Cr Clr Drug Dosing Est GFR ( Amer) Est GFR (Non-Af Amer) BUN/Creatinine Ratio Glucose POC Glucose 193 H 142 H Estimat Average Glucose 157 Hemoglobin A1c 7.1 H Calcium Magnesium Total Bilirubin Direct Bilirubin AST ALT Alkaline Phosphatase Troponin I Total Protein Albumin Whole Bld Vitamin B1 Vitamin B12 Folate Urine Color Urine Appearance Urine pH Ur Specific Bradley Urine Protein Urine Glucose (UA) Urine Ketones Urine Blood Urine Nitrite Urine Bilirubin Urine Urobilinogen Ur Leukocyte Esterase Current Inpatient Medications Current Inpatient Medications: Current Inpatient Medications Acetaminophen (Acetaminophen 325 Mg Tab) 650 mg PO Q4H PRN PRN Reason: Pain or Fever Stop: 02/23/21 07:58 Dextrose (Dextrose 50% 50 Ml Syringe) 25 - 50 ml IV UD PRN; Protocol PRN Reason: Hypoglycemia Protocol Stop: 02/23/21 15:29 Enoxaparin Sodium (Enoxaparin Inj 40 Mg/0.4 Ml Syr) 40 mg SQ Q24H [facility] Stop: 02/23/21 08:59 Last Admin: 01/25/21 10:09 Dose: 40 mg Documented by: Glucagon (Glucagon For Inj 1 Mg Vial) 1 mg IM UD PRN; Protocol PRN Reason: Hypoglycemia Protocol Stop: 02/23/21 15:29 Glucose (Glucose 40% Gel 15 Gm Tube) 15 - 30 gm PO UD PRN; Protocol PRN Reason: Hypoglycemia Protocol Stop: 02/23/21 15:29 Glucose (Glucose 10 Tabs/Tube) 4 - 8 tabs PO UD PRN; Protocol PRN Reason: Hypoglycemia Protocol Stop: 02/23/21 15:29 Hydralazine HCl (Hydralazine Hcl 20 Mg/Ml Vial) 5 mg IV Q6H PRN PRN Reason: systolic bp > 160 Stop: 02/24/21 09:59 Last Admin: 01/25/21 12:22 Dose: 5 mg Documented by: Insulin Aspart (Insulin Aspart Per Unit) 0 units SC ACHS [facility] Stop: 02/23/21 07:58 Last Admin: 01/25/21 12:26 Dose: Not Given Documented by: Miscellaneous (Carbohydrates For Hypoglycemia ) 15 - 30 gm PO UD PRN PRN Reason: Hypoglycemia Treatment Stop: 02/23/21 15:29 Nitroglycerin (Nitroglycerin Sl 0.4 Mg/Tab Tab) 0.4 mg SL UD PRN PRN Reason: Chest Pain Stop: 02/23/21 07:58 Olanzapine (Olanzapine 10 Mg/2.1 Ml Sdv) 2.5 mg IM Q6H PRN PRN Reason: Agitation Stop: 02/23/21 07:58 Last Admin: 01/24/21 20:29 Dose: 2.5 mg Documented by: Quetiapine Fumarate (Quetiapine Fumarate 25 Mg Tablet) 12.5 mg PO BID [facility] Stop: 02/23/21 20:59 Last Admin: 01/25/21 10:09 Dose: 12.5 mg Documented by:
[2021-01-25] MEDS: OLANZapine 10 MG/2.1 ML SDV IM PRN (14:30)
[2021-01-26] MEDS: hydrALAZINE HCL 20 MG/ML VIAL IV PRN (07:37)
[2021-01-26] MEDS: ACETAMINOPHEN 325 MG TAB PO PRN (07:42)
[2021-01-26] MEDS: INSULIN ASPART PER UNIT SC SCH ×4 (08:17→21:13)
[2021-01-26] MEDS: ENOXAPARIN INJ 40 MG/0.4 ML SYR SQ SCH (08:20)
[2021-01-26] MEDS: QUEtiapine FUMARATE 25 MG TABLET PO SCH ×2 (08:21→21:03)
--- NOTE | 2021-01-26 09:13 | Hospitalist Progress Note ---
Date of Service January 26, 2021 Assessment & Plan (1) Major neurocognitive disorder due to Alzheimer's disease, with behavioral disturbance: Plan: ASSESSMENT AND PLAN: An 80-year-old male who was brought in from home for agitation. 1. Major neurocognitive disorder, due to Alzheimer's disease, with behavioral disturbance Per admitting physician's notes: The patient is known to have a history of dementia, recently started with Seroquel by PCP, got one dose last night as per the . CT of the head, preliminary report unremarkable. Labs unremarkable except for mild troponin elevation. Evaluated by neurology and psychiatry service Recommend Seroquel 12.5 mg p.o. 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 History of tachybrady syndrome, status post pacemaker. Monitor in telemetry unit 3.Mild elevation of troponin, mostly demand ischemia. Troponin went down from 0.3, to 0.2 EKG no acute ischemia Echocardiogram: Pending as patient is agitated 4. History of severe aortic regurgitation. Euvolemic Recent Cardiology visit recommended nonsurgical medical management. 5. Acute kidney injury and chronic kidney disease stage III, baseline creatinine 1.2, present creatinine 1.5. Resolved after IV fluids 6. Diabetes. Hold his home meds, placed on insulin sliding scale. a1c 7.1 7. History of coronary artery disease, status post drug-eluting stents to LAD. Continue his home medications. 8.enlargement in aortic root. Follows with Cardiology and follow the echocardiogram. 9. Hyperlipidemia: Continue statin. 10. Hypertension: BP elevated, likely secondary to agitation As needed hydralazine ordered Continue his home medication of losartan, metoprolol, amlodipine and Imdur. 11. History of anemia followed up with Hematology in 08/2018 and observation recommended. 12. History of thrombocytopenia Plt stable 13. Deep venous thrombosis prophylaxis: Placed on Lovenox. 14. Mild elevation in total bilirubin Check liver ultrasound Disposition will need SNF Admission and Anticipated Discharge Date Admission Date: January 24, 2021 Subjective Follow-up for dementia, with behavioral disturbance, etc. Seen with patient's RN seen at the bedside Per RN, patient has been fine overnight Required Zyprexa in the evening This morning eating his breakfast, taking his medications Patient calm cooperative per RN Seen sitting up in bed calmly, having breakfast Very pleasant, pleasantly confused States he feels fine overall Denies headache, dizziness, chest pain, shortness of breath, abdominal pain, nausea vomiting No pain No other symptoms Review of Systems Review of Systems: all noted and negative except for above Physical Exam Physical Exam: General- oriented to patient's , not in distress, speaks in sentences with no effort or accessory muscle use Eyes- anicteric Neck- no JVD Lungs- clear breath sounds bilaterally, no rales/wheezes Heart- normal rate, regular rhythm; no murmurs Abdomen- normal bowel sounds, nondistended, soft, nontender Extremities- no pretibial edema, no calf tenderness Neuro- alert, oriented x1; no new gross focal neurologic deficits Skin- warm & dry Results & Data Results & Data ([facility]) Vital Signs (Past 12 Hours) Vital Signs Temp Pulse Pulse Resp BP Pulse Ox 01/26/21 07:17 36.7 C 67 20 166/54 H 94 01/26/21 07:00 78 01/25/21 23:32 63 01/25/21 22:46 37.0 C 68 20 144/67 H 98 all noted and reviewed including below
[2021-01-26] MEDS: OLANZapine 10 MG/2.1 ML SDV IM PRN ×2 (09:26→18:34)
[2021-01-26] MEDS: LOSARTAN POTASSIUM 50 MG TAB PO SCH (11:09)
[2021-01-26] MEDS: ATORVASTATIN 40 MG TAB PO SCH (11:10)
[2021-01-26] MEDS: ASPIRIN 81 MG ECTAB PO SCH (11:10)
[2021-01-26] MEDS: amLODIPine BESYLATE 5 MG TAB PO SCH (11:10)
[2021-01-26] MEDS: ISOSORBIDE MONO EXTENDED REL 60 MG TABCR PO SCH (11:10)
[2021-01-26] MEDS: METOPROLOL SUCC 25MG EXT REL TAB PO SCH (11:11)
--- NOTE | 2021-01-26 11:28 | Psychiatric Progress Note ---
Date of Service January 26, 2021 Impression / Recommendations Impression 80 yo man with major neurocognitive disorder with behavioral disturbance with worsening agitation and confusion over the last week. This could represent worsening of his dementia versus superimposed delirium. Appropriate to start seroquel given level of aggression and agitation causing danger to himself and others though recommend using the lowest necessary dose given black box risk for increased all cause mortality in dementia and his elevated QTc. Risks/benefit profile continues to favor low dose antipsychotic use, even with QTc changes, given high level of aggression but QTc will need to be monitored closely. 01/26/21: Worry about potential for akathisia with continued doses of IM zyprexa and QTc impact but aggression remains difficult to manage with behavorial strategies. Recommend daily EKGs, continuing to utilize behavioral strategies for redirection as much as possible and increasing scheduled seroquel in attempt to avoid IM medications as much as possible. (1) Major neurocognitive disorder due to Alzheimer's disease, with behavioral disturbance: 01/26/21: Daily EKGs, increase scheduled seroquel to 25 mg BID 01/25/21: Daily EKGs due to QTc prolongation, may want to consider cardiology input re: safety of ongoing use of QTc prolonging agents, continue with seroquel 12.5 mg BID, for behavioral emergency olanzpaine 2.5 mg IM x 1 (not to exceed 10mg per 24 hours). 01/24/21: -1-one-1 for now for behavioral redirection -Start seroquel 12.5 mg BID for agitation -For behavioral emergency could use olanzapine 2.5 mg IM x1 (up to max of 10mg per 24 hours). Evaluate QTc if multiple IM doses are needed in a day. -May require higher level of care given worsening agitation -Continue with medical workup to rule out causes for reversible delirium adding to agitation and confusion -Continue with delirium prevention with frequent re-orientation, attempting to open blinds during the day, having pictures/phone calls or visits from family, can use melatonin 3mg qhs if sleep is disrupted -Discussed with Dr. Joaquin Interval History Identifying Information 80 yo man with major neurocognitive disorder and multiple medical comorbidities was admitted medically after increased behaviors of agitation at home. Psychiatry was consulted for medication management and recommendations. Chief Complaint sleeping Review of Systems Notes Unable to assess due to his cognitive status. No evidence of muscle rigidity on exam. Subjective Subjective Patient was seen & assessed and interval progress reviewed. Continuing to require frequent doses of IM zyprexa for agitation including this morning after staff attempted changing/required hygiene. Reportedly slept well overnight. Sleeping on my assessment after he received IM zxyprexa. Per discussion with 1-to-1 his mood can change abruptly and any time hands on are required for readjustment or changes or medical procedures this seems to be a major trigger for aggression and agitation. Physical Exam Psychiatric Orientation: alert and oriented to person; + not oriented to place and + not oriented to time Apperance: appropriately dressed and appropriately groomed Eye Contact: good eye contact Motor Behavior: no abnormal motor movements; n EPS Speech: normal rate/rhythm/volume of speech Affect: euthymic affect Mood: no depressed mood, no anxious mood and no irritable mood Thought Process: + concrete thought process Thought Content: reality based without delusions Suicidal Thoughts: denies suicidal thoughts Homicidal Thoughts: denies homicidal thoughts Hallucinations: no auditory hallucinations and no visual hallucinations Cognition: remote memory grossly intact and attention grossly intact; + recent memory not intact and + language not intact Insight: + impaired insight Judgement: + severely impaired judgement Vital Signs (Past 24 Hours) Last Vital Signs Temp 36.5 C 01/26/21 11:18 Pulse 80 01/26/21 11:18 Resp 18 01/26/21 11:18 BP 156/60 H 01/26/21 11:18 Pulse Ox 96 01/26/21 11:18 Results & Data ([facility]) Laboratory Results Laboratory Results - last 24 hr 01/25/21 01/25/21 01/25/21 11:43 16:30 20:11 POC Glucose 142 H 132 H 176 H 01/26/21 07:33 POC Glucose 139 H Current Inpatient Medications Current Inpatient Medications: Current Inpatient Medications Acetaminophen (Acetaminophen 325 Mg Tab) 650 mg PO Q4H PRN PRN Reason: Pain or Fever Stop: 02/23/21 07:58 Last Admin: 01/26/21 07:42 Dose: 650 mg Documented by: Amlodipine Besylate (Amlodipine Besylate 5 Mg Tab) 5 mg PO DAILY [facility] Stop: 02/25/21 09:14 Last Admin: 01/26/21 11:10 Dose: 5 mg Documented by: Aspirin (Aspirin 81 Mg Ectab) 81 mg PO DAILY [facility] Stop: 02/25/21 09:14 Last Admin: 01/26/21 11:10 Dose: 81 mg Documented by: Atorvastatin Calcium (Atorvastatin 40 Mg Tab) 80 mg PO DAILY [facility] Stop: 02/25/21 09:14 Last Admin: 01/26/21 11:10 Dose: 80 mg Documented by: Dextrose (Dextrose 50% 50 Ml Syringe) 25 - 50 ml IV UD PRN; Protocol PRN Reason: Hypoglycemia Protocol Stop: 02/23/21 15:29 Enoxaparin Sodium (Enoxaparin Inj 40 Mg/0.4 Ml Syr) 40 mg SQ Q24H [facility] Stop: 02/23/21 08:59 Last Admin: 01/26/21 08:20 Dose: 40 mg Documented by: Glucagon (Glucagon For Inj 1 Mg Vial) 1 mg IM UD PRN; Protocol PRN Reason: Hypoglycemia Protocol Stop: 02/23/21 15:29 Glucose (Glucose 40% Gel 15 Gm Tube) 15 - 30 gm PO UD PRN; Protocol PRN Reason: Hypoglycemia Protocol Stop: 02/23/21 15:29 Glucose (Glucose 10 Tabs/Tube) 4 - 8 tabs PO UD PRN; Protocol PRN Reason: Hypoglycemia Protocol Stop: 02/23/21 15:29 Hydralazine HCl (Hydralazine Hcl 20 Mg/Ml Vial) 5 mg IV Q6H PRN PRN Reason: systolic bp > 160 Stop: 02/24/21 09:59 Last Admin: 01/26/21 07:37 Dose: 5 mg Documented by: Hydrochlorothiazide (Hydrochlorothiazide 25 Mg Tab) 12.5 mg PO DAILY [facility] Stop: 02/26/21 08:59 Insulin Aspart (Insulin Aspart Per Unit) 0 units SC ACHS [facility] Stop: 02/23/21 07:58 Last Admin: 01/26/21 08:17 Dose: 3 units Documented by: Isosorbide Mononitrate (Isosorbide [place] Extended Rel 60 Mg Tabcr) 60 mg PO QAM [facility] Stop: 02/25/21 09:14 Last Admin: 01/26/21 11:10 Dose: 60 mg Documented by: Losartan Potassium (Losartan Potassium 50 Mg Tab) 100 mg PO DAILY [facility] Stop: 02/25/21 09:14 Last Admin: 01/26/21 11:09 Dose: 100 mg Documented by: Metoprolol Succinate (Metoprolol Succ 25mg Ext Rel Tab) 25 mg PO DAILY [facility] Stop: 02/25/21 09:14 Last Admin: 01/26/21 11:11 Dose: 25 mg Documented by: Miscellaneous (Carbohydrates For Hypoglycemia ) 15 - 30 gm PO UD PRN PRN Reason: Hypoglycemia Treatment Stop: 02/23/21 15:29 Nitroglycerin (Nitroglycerin Sl 0.4 Mg/Tab Tab) 0.4 mg SL UD PRN PRN Reason: Chest Pain Stop: 02/23/21 07:58 Olanzapine (Olanzapine 10 Mg/2.1 Ml Sdv) 2.5 mg IM Q6H PRN PRN Reason: Agitation Stop: 02/23/21 07:58 Last Admin: 01/26/21 09:26 Dose: 2.5 mg Documented by: Quetiapine Fumarate (Quetiapine Fumarate 25 Mg Tablet) 12.5 mg PO BID [facility] Stop: 02/23/21 20:59 Last Admin: 01/26/21 08:21 Dose: 12.5 mg Documented by:
[2021-01-26] MEDS ORDERED: QUEtiapine FUMARATE 25 MG TABLET PO ONE (11:33)
[2021-01-27] MEDS: ENOXAPARIN INJ 40 MG/0.4 ML SYR SQ SCH (08:33)
[2021-01-27] MEDS: INSULIN ASPART PER UNIT SC SCH ×4 (08:33→20:54)
[2021-01-27] MEDS: METOPROLOL SUCC 25MG EXT REL TAB PO SCH (08:34)
[2021-01-27] MEDS: LOSARTAN POTASSIUM 50 MG TAB PO SCH (08:34)
[2021-01-27] MEDS: ATORVASTATIN 40 MG TAB PO SCH (08:34)
[2021-01-27] MEDS: hydroCHLOROthiazide 25 MG TAB PO SCH (08:34)
[2021-01-27] MEDS: QUEtiapine FUMARATE 25 MG TABLET PO SCH ×2 (08:34→20:53)
[2021-01-27] MEDS: amLODIPine BESYLATE 5 MG TAB PO SCH (08:34)
[2021-01-27] MEDS: ASPIRIN 81 MG ECTAB PO SCH (08:34)
[2021-01-27] MEDS: ISOSORBIDE MONO EXTENDED REL 60 MG TABCR PO SCH (08:34)
[2021-01-27] MEDS: OLANZapine 10 MG/2.1 ML SDV IM PRN (12:54)
--- NOTE | 2021-01-27 15:13 | Psychiatric Progress Note ---
Date of Service January 27, 2021 Impression / Recommendations Impression 80 yo man with major neurocognitive disorder with behavioral disturbance with worsening agitation and confusion over the last week. This could represent worsening of his dementia versus superimposed delirium. Appropriate to start seroquel given level of aggression and agitation causing danger to himself and others though recommend using the lowest necessary dose given black box risk for increased all cause mortality in dementia and his elevated QTc. Risks/benefit profile continues to favor low dose antipsychotic use, even with QTc changes, given high level of aggression but QTc will need to be monitored closely. 01/27/21: Tolerating higher dose of seroquel without evidence for EPS, only required one IM dose of zyprexa yesterday. Recommend daily EKGs, continuing to utilize behavioral strategies for redirection as much as possible and increasing scheduled seroquel in attempt to avoid IM medications as much as possible. (1) Major neurocognitive disorder due to Alzheimer's disease, with behavioral disturbance: 01/27/21: EKGs, Seroquel 25 mg BID 01/26/21: Daily EKGs, increase scheduled seroquel to 25 mg BID 01/25/21: Daily EKGs due to QTc prolongation, may want to consider cardiology input re: safety of ongoing use of QTc prolonging agents, continue with seroquel 12.5 mg BID, for behavioral emergency olanzpaine 2.5 mg IM x 1 (not to exceed 10mg per 24 hours). 01/24/21: -1-one-1 for now for behavioral redirection -Start seroquel 12.5 mg BID for agitation -For behavioral emergency could use olanzapine 2.5 mg IM x1 (up to max of 10mg per 24 hours). Evaluate QTc if multiple IM doses are needed in a day. -May require higher level of care given worsening agitation -Continue with medical workup to rule out causes for reversible delirium adding to agitation and confusion -Continue with delirium prevention with frequent re-orientation, attempting to open blinds during the day, having pictures/phone calls or visits from family, can use melatonin 3mg qhs if sleep is disrupted -Discussed with Dr. Joaquin Interval History Identifying Information 80 yo man with major neurocognitive disorder and multiple medical comorbidities was admitted medically after increased behaviors of agitation at home. Psychiatry was consulted for medication management and recommendations. Chief Complaint sleeping Subjective Subjective Patient was seen & assessed and interval progress reviewed. Received IM zyprexa at ~6:30pm last night. Taking po seroquel. This morning was resting comfortable and per discussion with 1-on-1 no evidence for muscle stiffness. Allowed more nursing care this morning including wearing a hospital gown and allowing sheets and blankets to put on him while he rests. Physical Exam Psychiatric Orientation: + not alert Apperance: appropriately dressed and appropriately groomed Motor Behavior: no abnormal motor movements; n EPS Affect: euthymic affect Insight: + impaired insight Judgement: + severely impaired judgement Vital Signs (Past 24 Hours) Last Vital Signs Temp 36.4 C L 01/27/21 11:54 Pulse 70 01/27/21 11:54 Resp 15 01/27/21 11:54 BP 103/50 L 01/27/21 11:54 Pulse Ox 97 01/27/21 11:54 Results & Data ([facility]) Laboratory Results Laboratory Results - last 24 hr 01/26/21 01/26/21 01/27/21 16:45 20:34 07:42 POC Glucose 148 H 220 H 183 H 01/27/21 11:50 POC Glucose 177 H Current Inpatient Medications Current Inpatient Medications: Current Inpatient Medications Acetaminophen (Acetaminophen 325 Mg Tab) 650 mg PO Q4H PRN PRN Reason: Pain or Fever Stop: 02/23/21 07:58 Last Admin: 01/26/21 07:42 Dose: 650 mg Documented by: Amlodipine Besylate (Amlodipine Besylate 5 Mg Tab) 5 mg PO DAILY [facility] Stop: 02/25/21 09:14 Last Admin: 01/27/21 08:34 Dose: 5 mg Documented by: Aspirin (Aspirin 81 Mg Ectab) 81 mg PO DAILY [facility] Stop: 02/25/21 09:14 Last Admin: 01/27/21 08:34 Dose: 81 mg Documented by: Atorvastatin Calcium (Atorvastatin 40 Mg Tab) 80 mg PO DAILY [facility] Stop: 02/25/21 09:14 Last Admin: 01/27/21 08:34 Dose: 80 mg Documented by: Dextrose (Dextrose 50% 50 Ml Syringe) 25 - 50 ml IV UD PRN; Protocol PRN Reason: Hypoglycemia Protocol Stop: 02/23/21 15:29 Enoxaparin Sodium (Enoxaparin Inj 40 Mg/0.4 Ml Syr) 40 mg SQ Q24H [facility] Stop: 02/23/21 08:59 Last Admin: 01/27/21 08:33 Dose: 40 mg Documented by: Glucagon (Glucagon For Inj 1 Mg Vial) 1 mg IM UD PRN; Protocol PRN Reason: Hypoglycemia Protocol Stop: 02/23/21 15:29 Glucose (Glucose 40% Gel 15 Gm Tube) 15 - 30 gm PO UD PRN; Protocol PRN Reason: Hypoglycemia Protocol Stop: 02/23/21 15:29 Glucose (Glucose 10 Tabs/Tube) 4 - 8 tabs PO UD PRN; Protocol PRN Reason: Hypoglycemia Protocol Stop: 02/23/21 15:29 Hydralazine HCl (Hydralazine Hcl 20 Mg/Ml Vial) 5 mg IV Q6H PRN PRN Reason: systolic bp > 160 Stop: 02/24/21 09:59 Last Admin: 01/26/21 07:37 Dose: 5 mg Documented by: Hydrochlorothiazide (Hydrochlorothiazide 25 Mg Tab) 12.5 mg PO DAILY [facility] Stop: 02/26/21 08:59 Last Admin: 01/27/21 08:34 Dose: 12.5 mg Documented by: Insulin Aspart (Insulin Aspart Per Unit) 0 units SC ACHS [facility] Stop: 02/23/21 07:58 Last Admin: 01/27/21 12:04 Dose: 1 units Documented by: Isosorbide Mononitrate (Isosorbide [place] Extended Rel 60 Mg Tabcr) 60 mg PO QAM [facility] Stop: 02/25/21 09:14 Last Admin: 01/27/21 08:34 Dose: 60 mg Documented by: Losartan Potassium (Losartan Potassium 50 Mg Tab) 100 mg PO DAILY [facility] Stop: 02/25/21 09:14 Last Admin: 01/27/21 08:34 Dose: 100 mg Documented by: Metoprolol Succinate (Metoprolol Succ 25mg Ext Rel Tab) 25 mg PO DAILY [facility] Stop: 02/25/21 09:14 Last Admin: 01/27/21 08:34 Dose: 25 mg Documented by: Miscellaneous (Carbohydrates For Hypoglycemia ) 15 - 30 gm PO UD PRN PRN Reason: Hypoglycemia Treatment Stop: 02/23/21 15:29 Nitroglycerin (Nitroglycerin Sl 0.4 Mg/Tab Tab) 0.4 mg SL UD PRN PRN Reason: Chest Pain Stop: 02/23/21 07:58 Olanzapine (Olanzapine 10 Mg/2.1 Ml Sdv) 2.5 mg IM Q6H PRN PRN Reason: Agitation Stop: 02/23/21 07:58 Last Admin: 01/27/21 12:54 Dose: 2.5 mg Documented by: Quetiapine Fumarate (Quetiapine Fumarate 25 Mg Tablet) 25 mg PO BID [facility] Stop: 02/25/21 20:59 Last Admin: 01/27/21 08:34 Dose: 25 mg Documented by:
--- NOTE | 2021-01-27 21:47 | Hospitalist Progress Note ---
Date of Service January 27, 2021 Assessment & Plan (1) Major neurocognitive disorder due to Alzheimer's disease, with behavioral disturbance: Plan: ASSESSMENT AND PLAN: An 80-year-old male who was brought in from home for agitation. 1. Major neurocognitive disorder, due to Alzheimer's disease, with behavioral disturbance Per admitting physician's notes: The patient is known to have a history of dementia, recently started with Seroquel by PCP, got one dose last night as per the . CT of the head, preliminary report unremarkable. Labs unremarkable except for mild troponin elevation. Evaluated by neurology and psychiatry service Continue Seroquel 25 mg twice daily as per psych Continue monitor EKG daily Zyprexa 2.5 mg every 6 hours as needed for agitation No benzodiazepines, narcotics, Benadryl Continue to utilize behavioral strategies for redirectionto avoid IM Zyprexa Case management on board for placement 2. History of tachybrady syndrome status post pacemaker. Monitor in telemetry unit 3.Mild elevation of troponin, mostly demand ischemia. Troponin went down from 0.3, to 0.2 EKG no acute ischemia Echocardiogram not able to obtain due to agitation Continue aspirin, statin and metoprolol 4. History of severe aortic regurgitation. Euvolemic Recent Cardiology visit recommended nonsurgical medical management. 5. Acute kidney injury and chronic kidney disease stage III baseline creatinine 1.2, present creatinine 1.5. Resolved after IV fluids 6. Diabetes. Most recent hemoglobin A1c 7.1 Continue to hold hold outpatient diabetic med On Lantus and NovoLog sliding scale History of coronary artery disease status post drug-eluting stents to LAD. Continue his home medications. 8. Enlargement in aortic root. Follows with Cardiology and follow the echocardiogram. 9. Hyperlipidemia: Continue statin. 10. Hypertension: BP stable currently Continue his home medication of losartan, metoprolol, amlodipine and Imdur. 11. History of anemia followed up with Hematology in 08/2018 and observation recommended. 12. History of thrombocytopenia Plt stable 13. Deep venous thrombosis prophylaxis: on Lovenox. Disposition Will need placement Admission and Anticipated Discharge Date Admission Date: January 24, 2021 Subjective Patient was seen and examined for follow-up of dementia with behavioral disturbance Sitting in chair with one-to-one sitter with no acute distress Nurse said he was just got a dose of Zyprexa since he was started to get agitated He felt a little sleepy couple minutes after the Zyprexa Denies any chest pain, palpitation, dizziness, shortness of breath. Review of Systems Review of Systems: All systems reviewed & are unremarkable except as noted in Subjective Physical Exam Physical Exam: General- No acute distress Head- atraumatic Eyes- PERRL, EOMI, ENT- oropharynx clear Neck- supple, no JVD Lungs- clear to auscultation Heart- regular rhythm; no murmur Abdomen- normal bowel sounds, soft, nontender Extremities- no calf tenderness Neuro- alert, PERRL, EOMI; no facial palsy; no dysarthria Skin- warm & dry Results & Data Results & Data ([facility]) Vital Signs (Past 12 Hours) Vital Signs Temp Pulse Resp BP Pulse Ox 01/27/21 20:10 36.4 C L 70 18 111/60 96 01/27/21 11:54 36.4 C L 70 15 103/50 L 97
[2021-01-27] MEDS ORDERED: INSULIN GLARGINE SOLOSTAR 100 UNITS/ML 3 ML PEN SC STA (22:51)
[2021-01-28] MEDS: OLANZapine 10 MG/2.1 ML SDV IM PRN (08:18)
[2021-01-28] MEDS: QUEtiapine FUMARATE 25 MG TABLET PO SCH ×2 (08:37→20:37)
[2021-01-28] MEDS: ATORVASTATIN 40 MG TAB PO SCH (08:38)
[2021-01-28] MEDS: LOSARTAN POTASSIUM 50 MG TAB PO SCH (08:38)
[2021-01-28] MEDS: METOPROLOL SUCC 25MG EXT REL TAB PO SCH (08:38)
[2021-01-28] MEDS: amLODIPine BESYLATE 5 MG TAB PO SCH (08:39)
[2021-01-28] MEDS: ASPIRIN 81 MG ECTAB PO SCH (08:39)
[2021-01-28] MEDS: hydroCHLOROthiazide 25 MG TAB PO SCH (08:39)
[2021-01-28] MEDS: ISOSORBIDE MONO EXTENDED REL 60 MG TABCR PO SCH (08:40)
[2021-01-28] MEDS: ENOXAPARIN INJ 40 MG/0.4 ML SYR SQ SCH (08:40)
[2021-01-28] MEDS: INSULIN ASPART PER UNIT SC SCH ×4 (08:47→20:44)
[2021-01-28 09:38] LABS: Hematocrit (blood only) 37.7 % (42-52); Hemoglobin 12.7 g/dL (14.0-18.0); Mean Corpuscular Hemoglobin 32.3 pg (25-34); Mean Corpuscular Hgb Conc 33.7 g/dL (32-36); Mean Corpuscular Volume 95.9 fL (80-100); Mean Platelet Volume 10.8 fL (7.4-10.4); Platelet Count 159 K/uL (130-400); RDW Coefficient of Variation 13.7 % (11.5-14.5); RDW Standard Deviation 48.1 fL (36.4-46.3); Red Blood Count 3.93 M/uL (4.7-6.1); White Blood Count 7.44 K/uL (4.8-10.8)
[2021-01-28 10:11] LABS: BUN Creatinine Ratio 34.4 (10-20); Creatinine Clr Calc Pharmacy 37.6 ml/min; Est GFR (African American) 54.1 ml/min; Est GFR (Non-African American) 46.7 ml/min; Potassium 3.5 mmol/L (3.5-5.1)
--- NOTE | 2021-01-28 11:50 | Psychiatric Progress Note ---
Date of Service January 28, 2021 Impression / Recommendations Impression 80 yo man with major neurocognitive disorder with behavioral disturbance with worsening agitation and confusion over the last week. This could represent worsening of his dementia versus superimposed delirium. Appropriate to start seroquel given level of aggression and agitation causing danger to himself and others though recommend using the lowest necessary dose given black box risk for increased all cause mortality in dementia and his elevated QTc. Risks/benefit profile continues to favor low dose antipsychotic use, even with QTc changes, given high level of aggression but QTc will need to be monitored closely. 01/28/21: Tolerating higher dose of seroquel without evidence for EPS, only required one IM dose of zyprexa yesterday. Recommend daily EKGs, continuing to utilize behavioral strategies for redirection as much as possible. Nursing noted that he responds well to a lot of verbal prompting and explanation prior to any hands-on for adjustments or medical procedures-encourage re-orientation, reminding him he is in the hospital and then explaining rationale for hands on and offer him opportunity to assist as he's able. 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 Continue 1-on-1. May consider midday seroquel tomorrow if he needs another IM zyprexa today. 01/27/21: EKGs, Seroquel 25 mg BID 01/26/21: Daily EKGs, increase scheduled seroquel to 25 mg BID 01/25/21: Daily EKGs due to QTc prolongation, may want to consider cardiology input re: safety of ongoing use of QTc prolonging agents, continue with seroquel 12.5 mg BID, for behavioral emergency olanzpaine 2.5 mg IM x 1 (not to exceed 10mg per 24 hours). 01/24/21: -1-one-1 for now for behavioral redirection -Start seroquel 12.5 mg BID for agitation -For behavioral emergency could use olanzapine 2.5 mg IM x1 (up to max of 10mg per 24 hours). Evaluate QTc if multiple IM doses are needed in a day. -May require higher level of care given worsening agitation -Continue with medical workup to rule out causes for reversible delirium adding to agitation and confusion -Continue with delirium prevention with frequent re-orientation, attempting to open blinds during the day, having pictures/phone calls or visits from family, can use melatonin 3mg qhs if sleep is disrupted -Discussed with Dr. Joaquin Interval History Identifying Information 80 yo man with major neurocognitive disorder and multiple medical comorbidities was admitted medically after increased behaviors of agitation at home. Psychi atry was consulted for medication management and recommendations. Chief Complaint "The sap business objects developer sometimes speeds but he does a good job getting us where we need to go, is this my stop?". Review of Systems Notes See HPI Subjective Subjective Patient was seen & assessed and interval progress reviewed. Received IM zyprexa 2.5 mg yesterday at 12pm. Reportedly may have throw water on roommates bed ye sterday. Taking Seroquel. Dressed and lying in bed today chatting with his 1-on-1. Confused-thinks we are in a school or on a bus or train. Believes his parents are still alive and may be picking him up soon. Possible reference to visual hallucinations when asked if he is watching TV and instead states he is watching " a stream" above my head on opposite wall. He denies any physical complaints, moves his limbs easily, denies muscle stiffness. Cannot recall eating breakfast though 1-on-1 reports he did. Physical Exam Psychiatric Orientation: oriented to person; + not oriented to place and + not oriented to time Apperance: appropriately dressed and appropriately groomed Eye Contact: good eye contact Motor Behavior: no abnormal motor movements; n EPS, n akathisia and n tremor Speech: normal rate/rhythm/volume of speech Affect: euthymic affect Mood: + irritable mood (euthymic but easily irritable at times with confusion) Thought Process: + concrete thought process Thought Content: reality based without delusions Suicidal Thoughts: denies suicidal thoughts Homicidal Thoughts: denies homicidal thoughts Hallucinations: no auditory hallucinations Cognition: remote memory grossly intact and attention grossly intact; + recent memory not intact and + language not intact Insight: + impaired insight Judgement: + severely impaired judgement Vital Signs (Past 24 Hours) Last Vital Signs Temp 36.6 C 01/28/21 03:01 Pulse 69 01/28/21 07:22 Resp 18 01/28/21 03:01 BP 142/56 H 01/28/21 03:01 Pulse Ox 97 01/28/21 03:01 Results & Data ([facility]) Laboratory Results Laboratory Results - last 24 hr 01/27/21 01/27/21 01/27/21 11:50 16:46 20:19 WBC RBC Hgb Hct MCV MCH MCHC RDW Std Deviation RDW Coeff of Tg Plt Count MPV Sodium Potassium Chloride Carbon Dioxide Anion Gap BUN Creatinine Est Cr Clr Drug Dosing Est GFR ( Amer) Est GFR (Non-Af Amer) BUN/Creatinine Ratio Glucose POC Glucose 177 H 267 H 327 H* Calcium 01/27/21 01/28/21 01/28/21 20:20 08:44 09:25 WBC 7.44 RBC 3.93 L Hgb 12.7 L Hct 37.7 L MCV 95.9 MCH 32.3 MCHC 33.7 RDW Std Deviation 48.1 H RDW Coeff of Tg 13.7 Plt Count 159 MPV 10.8 H Sodium Potassium Chloride Carbon Dioxide Anion Gap BUN Creatinine Est Cr Clr Drug Dosing Est GFR ( Amer) Est GFR (Non-Af Amer) BUN/Creatinine Ratio Glucose POC Glucose 316 H* 136 H Calcium 01/28/21 09:25 WBC RBC Hgb Hct MCV MCH MCHC RDW Std Deviation RDW Coeff of Tg Plt Count MPV Sodium 142 Potassium 3.5 Chloride 110 H Carbon Dioxide 23 Anion Gap 9.0 BUN 49 H Creatinine 1.41 H Est Cr Clr Drug Dosing 37.6 Est GFR ( Amer) 54.1 Est GFR (Non-Af Amer) 46.7 BUN/Creatinine Ratio 34.4 H Glucose 169 H POC Glucose Calcium 9.0 Current Inpatient Medications Current Inpatient Medications: Current Inpatient Medications Acetaminophen (Acetaminophen 325 Mg Tab) 650 mg PO Q4H PRN PRN Reason: Pain or Fever Stop: 02/23/21 07:58 Last Admin: 01/26/21 07:42 Dose: 650 mg Documented by: Amlodipine Besylate (Amlodipine Besylate 5 Mg Tab) 5 mg PO DAILY [facility] Stop: 02/25/21 09:14 Last Admin: 01/28/21 08:39 Dose: 5 mg Documented by: Aspirin (Aspirin 81 Mg Ectab) 81 mg PO DAILY [facility] Stop: 02/25/21 09:14 Last Admin: 01/28/21 08:39 Dose: 81 mg Documented by: Atorvastatin Calcium (Atorvastatin 40 Mg Tab) 80 mg PO DAILY [facility] Stop: 02/25/21 09:14 Last Admin: 01/28/21 08:38 Dose: 80 mg Documented by: Dextrose (Dextrose 50% 50 Ml Syringe) 25 - 50 ml IV UD PRN; Protocol PRN Reason: Hypoglycemia Protocol Stop: 02/23/21 15:29 Enoxaparin Sodium (Enoxaparin Inj 40 Mg/0.4 Ml Syr) 40 mg SQ Q24H [facility] Stop: 02/23/21 08:59 Last Admin: 01/28/21 08:40 Dose: 40 mg Documented by: Glucagon (Glucagon For Inj 1 Mg Vial) 1 mg IM UD PRN; Protocol PRN Reason: Hypoglycemia Protocol Stop: 02/23/21 15:29 Glucose (Glucose 40% Gel 15 Gm Tube) 15 - 30 gm PO UD PRN; Protocol PRN Reason: Hypoglycemia Protocol Stop: 02/23/21 15:29 Glucose (Glucose 10 Tabs/Tube) 4 - 8 tabs PO UD PRN; Protocol PRN Reason: Hypoglycemia Protocol Stop: 02/23/21 15:29 Hydralazine HCl (Hydralazine Hcl 20 Mg/Ml Vial) 5 mg IV Q6H PRN PRN Reason: systolic bp > 160 Stop: 02/24/21 09:59 Last Admin: 01/26/21 07:37 Dose: 5 mg Documented by: Hydrochlorothiazide (Hydrochlorothiazide 25 Mg Tab) 12.5 mg PO DAILY [facility] Stop: 02/26/21 08:59 Last Admin: 01/28/21 08:39 Dose: 12.5 mg Documented by: Insulin Aspart (Insulin Aspart Per Unit) 0 units SC ACHS [facility] Stop: 02/27/21 07:29 Last Admin: 01/28/21 08:47 Dose: Not Given Documented by: Insulin Glargine (Insulin Glargine Solostar 100 Units/Ml 3 Ml Pen) 10 units SC HS [facility] Stop: 02/27/21 20:59 Isosorbide Mononitrate (Isosorbide [place] Extended Rel 60 Mg Tabcr) 60 mg PO QAM [facility] Stop: 02/25/21 09:14 Last Admin: 01/28/21 08:40 Dose: 60 mg Documented by: Losartan Potassium (Losartan Potassium 50 Mg Tab) 100 mg PO DAILY [facility] Stop: 02/25/21 09:14 Last Admin: 01/28/21 08:38 Dose: 100 mg Documented by: Metoprolol Succinate (Metoprolol Succ 25mg Ext Rel Tab) 25 mg PO DAILY [facility] Stop: 02/25/21 09:14 Last Admin: 01/28/21 08:38 Dose: 25 mg Documented by: Miscellaneous (Carbohydrates For Hypoglycemia ) 15 - 30 gm PO UD PRN PRN Reason: Hypoglycemia Treatment Stop: 02/23/21 15:29 Nitroglycerin (Nitroglycerin Sl 0.4 Mg/Tab Tab) 0.4 mg SL UD PRN PRN Reason: Chest Pain Stop: 02/23/21 07:58 Olanzapine (Olanzapine 10 Mg/2.1 Ml Sdv) 2.5 mg IM Q6H PRN PRN Reason: Agitation Stop: 02/23/21 07:58 Last Admin: 01/28/21 08:18 Dose: 2.5 mg Documented by: Quetiapine Fumarate (Quetiapine Fumarate 25 Mg Tablet) 25 mg PO BID [facility] Stop: 02/25/21 20:59 Last Admin: 01/28/21 08:37 Dose: 25 mg Documented by:
--- NOTE | 2021-01-28 18:50 | Hospitalist Progress Note ---
Date of Service January 28, 2021 Assessment & Plan (1) Major neurocognitive disorder due to Alzheimer's disease, with behavioral disturbance: Plan: ASSESSMENT AND PLAN: An 80-year-old male who was brought in from home for agitation. 1. Major neurocognitive disorder, due to Alzheimer's disease, with behavioral disturbance Per admitting physician's notes: The patient is known to have a history of dementia, recently started with Seroquel by PCP, got one dose last night as per the . CT of the head, preliminary report unremarkable. Labs unremarkable except for mild troponin elevation. Evaluated by neurology and psychiatry service Continue Seroquel 25 mg twice daily as per psych Continue monitor EKG daily Zyprexa 2.5 mg every 6 hours as needed for agitation No benzodiazepines, narcotics, Benadryl Continue to utilize behavioral strategies for redirectionto avoid IM Zyprexa Case management on board for placement 2. History of tachybrady syndrome status post pacemaker. Monitor in telemetry unit 3.Mild elevation of troponin, mostly demand ischemia. Troponin went down from 0.3, to 0.2 EKG no acute ischemia Echocardiogram not able to obtain due to agitation Continue aspirin, statin and metoprolol 4. History of severe aortic regurgitation. Euvolemic Recent Cardiology visit recommended nonsurgical medical management. 5. Acute kidney injury and chronic kidney disease stage III baseline creatinine 1.2, present creatinine 1.5. Resolved after IV fluids 6. Diabetes. Most recent hemoglobin A1c 7.1 Continue to hold hold outpatient diabetic med On Lantus and NovoLog sliding scale History of coronary artery disease status post drug-eluting stents to LAD. Continue his home medications. 8. Enlargement in aortic root. Follows with Cardiology and follow the echocardiogram. 9. Hyperlipidemia: Continue statin. 10. Hypertension: BP stable currently Continue his home medication of losartan, metoprolol, amlodipine and Imdur. 11. History of anemia followed up with Hematology in 08/2018 and observation recommended. 12. History of thrombocytopenia Plt stable 13. Deep venous thrombosis prophylaxis: on Lovenox. Disposition Will need placement Admission and Anticipated Discharge Date Admission Date: January 24, 2021 Subjective Patient was seen and examined for follow-up of dementia with behavioral disturbance Sitting in chair with one-to-one sitter with no acute distress he is more awake today and no abnormal behavior and calm he was able to follow command He received one dose of Zyprexa early Denies any chest pain, palpitation, dizziness, shortness of breath. Review of Systems Review of Systems: All systems reviewed & are unremarkable except as noted in Subjective Physical Exam Physical Exam: General- No acute distress Head- atraumatic Eyes- PERRL, EOMI, ENT- oropharynx clear Neck- supple, no JVD Lungs- clear to auscultation Heart- regular rhythm; no murmur Abdomen- normal bowel sounds, soft, nontender Extremities- no calf tenderness Neuro- alert, PERRL, EOMI; no facial palsy; no dysarthria Skin- warm & dry Results & Data Results & Data ([facility]) Vital Signs (Past 12 Hours) Vital Signs Temp Pulse Pulse Resp BP Pulse Ox 01/28/21 16:00 81 01/28/21 12:40 37.1 C 75 12 102/48 L 93 01/28/21 07:22 69
[2021-01-28] MEDS: INSULIN GLARGINE SOLOSTAR 100 UNITS/ML 3 ML PEN SC SCH (20:44)
[2021-01-29] MEDS: INSULIN ASPART PER UNIT SC SCH ×4 (07:54→20:35)
[2021-01-29] MEDS: ISOSORBIDE MONO EXTENDED REL 60 MG TABCR PO SCH (07:58)
[2021-01-29] MEDS: ATORVASTATIN 40 MG TAB PO SCH (07:58)
[2021-01-29] MEDS: LOSARTAN POTASSIUM 50 MG TAB PO SCH (07:59)
[2021-01-29] MEDS: ASPIRIN 81 MG ECTAB PO SCH (07:59)
[2021-01-29] MEDS: amLODIPine BESYLATE 5 MG TAB PO SCH (07:59)
[2021-01-29] MEDS: ENOXAPARIN INJ 40 MG/0.4 ML SYR SQ SCH (07:59)
[2021-01-29] MEDS: QUEtiapine FUMARATE 25 MG TABLET PO SCH ×2 (07:59→20:33)
[2021-01-29] MEDS: METOPROLOL SUCC 25MG EXT REL TAB PO SCH (08:00)
--- NOTE | 2021-01-29 10:38 | Psychiatric Progress Note ---
Date of Service January 29, 2021 Impression / Recommendations Impression 80 yo man with major neurocognitive disorder with behavioral disturbance with worsening agitation and confusion over the last week. This could represent worsening of his dementia versus superimposed delirium. Appropriate to start seroquel given level of aggression and agitation causing danger to himself and others though recommend using the lowest necessary dose given black box risk for increased all cause mortality in dementia and his elevated QTc. Risks/benefit profile continues to favor low dose antipsychotic use, even with QTc changes, given high level of aggression but QTc will need to be monitored closely. 01/29/21: Tolerating higher dose of seroquel without evidence for EPS, no Im doses of zyprexa required since yesterday morning. EKG still with prolonged QTc but encouragingly it hasn't worsened with multiple IM zyprexa doses and scheduled seroquel and benefits of need to address agitation out weigh risks of prolonged QTc, continuing to utilize behavioral strategies for redirection as much as possible. Nursing noted that he responds well to a lot of verbal prompting and explanation prior to any hands-on for adjustments or medical procedures-encourage re-orientation, reminding him he is in the hospital and then explaining rationale for hands on and offer him opportunity to assist as he's able. (1) Major neurocognitive disorder due to Alzheimer's disease, with behavioral disturbance: 01/29/21: continue with seroquel 25mg BID, Continue 1-on-1. 01/28/21: Continue with seroquel 25 mg BID, no EKG since 01/24/21 would repeat to get sense for QTc if he can tolerate it. Continue 1-on-1. May consider midday seroquel tomorrow if he needs another IM zyprexa today. 01/27/21: EKGs, Seroquel 25 mg BID 01/26/21: Daily EKGs, increase scheduled seroquel to 25 mg BID 01/25/21: Daily EKGs due to QTc prolongation, may want to consider cardiology input re: safety of ongoing use of QTc prolonging agents, continue with seroquel 12.5 mg BID, for behavioral emergency olanzpaine 2.5 mg IM x 1 (not to exceed 10mg per 24 hours). 01/24/21: -1-one-1 for now for behavioral redirection -Start seroquel 12.5 mg BID for agitation -For behavioral emergency could use olanzapine 2.5 mg IM x1 (up to max of 10mg per 24 hours). Evaluate QTc if multiple IM doses are needed in a day. -May require higher level of care given worsening agitation -Continue with medical workup to rule out causes for reversible delirium adding to agitation and confusion -Continue with delirium prevention with frequent re-orientation, attempting to open blinds during the day, having pictures/phone calls or visits from family, can use melatonin 3mg qhs if sleep is disrupted -Discussed with Dr. Joaquin Interval History Identifying Information 80 yo man with major neurocognitive disorder and multiple medical comorbidities was admitted medically after increased behaviors of agitation at home. Psychiatry was consulted for medication management and recommendations. Chief Complaint sleeping comfortably Subjective Subjective Patient was seen & assessed and interval progress reviewed. Last required IM zyprexa yesterday morning. This morning appears to be resting comfortably. Per discussion with his 1-on-1 and his RN he tolerated EKG this morning and has been appropriate. Physical Exam Psychiatric Sleeping under blankets, appropriately dressed, appears comfortable. Vital Signs (Past 24 Hours) Last Vital Signs Temp 36.3 C L 01/29/21 07:45 Pulse 66 01/29/21 07:45 Resp 18 01/29/21 07:45 BP 158/60 H 01/29/21 07:45 Pulse Ox 95 01/29/21 07:45 Results & Data ([facility]) Laboratory Results Laboratory Results - last 24 hr 01/28/21 01/28/21 01/28/21 11:46 16:44 20:28 POC Glucose 223 H 211 H 152 H 01/29/21 07:31 POC Glucose 95 Current Inpatient Medications Current Inpatient Medications: Current Inpatient Medications Acetaminophen (Acetaminophen 325 Mg Tab) 650 mg PO Q4H PRN PRN Reason: Pain or Fever Stop: 02/23/21 07:58 Last Admin: 01/26/21 07:42 Dose: 650 mg Documented by: Amlodipine Besylate (Amlodipine Besylate 5 Mg Tab) 5 mg PO DAILY [facility] Stop: 02/25/21 09:14 Last Admin: 01/29/21 07:59 Dose: 5 mg Documented by: Aspirin (Aspirin 81 Mg Ectab) 81 mg PO DAILY [facility] Stop: 02/25/21 09:14 Last Admin: 01/29/21 07:59 Dose: 81 mg Documented by: Atorvastatin Calcium (Atorvastatin 40 Mg Tab) 80 mg PO DAILY [facility] Stop: 02/25/21 09:14 Last Admin: 01/29/21 07:58 Dose: 80 mg Documented by: Dextrose (Dextrose 50% 50 Ml Syringe) 25 - 50 ml IV UD PRN; Protocol PRN Reason: Hypoglycemia Protocol Stop: 02/23/21 15:29 Enoxaparin Sodium (Enoxaparin Inj 40 Mg/0.4 Ml Syr) 40 mg SQ Q24H [facility] Stop: 02/23/21 08:59 Last Admin: 01/29/21 07:59 Dose: 40 mg Documented by: Glucagon (Glucagon For Inj 1 Mg Vial) 1 mg IM UD PRN; Protocol PRN Reason: Hypoglycemia Protocol Stop: 02/23/21 15:29 Glucose (Glucose 40% Gel 15 Gm Tube) 15 - 30 gm PO UD PRN; Protocol PRN Reason: Hypoglycemia Protocol Stop: 02/23/21 15:29 Glucose (Glucose 10 Tabs/Tube) 4 - 8 tabs PO UD PRN; Protocol PRN Reason: Hypoglycemia Protocol Stop: 02/23/21 15:29 Hydralazine HCl (Hydralazine Hcl 20 Mg/Ml Vial) 5 mg IV Q6H PRN PRN Reason: systolic bp > 160 Stop: 02/24/21 09:59 Last Admin: 01/26/21 07:37 Dose: 5 mg Documented by: Hydrochlorothiazide (Hydrochlorothiazide 25 Mg Tab) 12.5 mg PO DAILY [facility] Stop: 02/26/21 08:59 Last Admin: 01/28/21 08:39 Dose: 12.5 mg Documented by: Insulin Aspart (Insulin Aspart Per Unit) 0 units SC ACHS [facility] Stop: 02/27/21 07:29 Last Admin: 01/29/21 07:54 Dose: Not Given Documented by: Insulin Glargine (Insulin Glargine Solostar 100 Units/Ml 3 Ml Pen) 10 units SC HS [facility] Stop: 02/27/21 20:59 Last Admin: 01/28/21 20:44 Dose: 10 units Documented by: Isosorbide Mononitrate (Isosorbide [place] Extended Rel 60 Mg Tabcr) 60 mg PO QAM [facility] Stop: 02/25/21 09:14 Last Admin: 01/29/21 07:58 Dose: 60 mg Documented by: Losartan Potassium (Losartan Potassium 50 Mg Tab) 100 mg PO DAILY [facility] Stop: 02/25/21 09:14 Last Admin: 01/29/21 07:59 Dose: 100 mg Documented by: Metoprolol Succinate (Metoprolol Succ 25mg Ext Rel Tab) 25 mg PO DAILY [facility] Stop: 02/25/21 09:14 Last Admin: 01/29/21 08:00 Dose: 25 mg Documented by: Miscellaneous (Carbohydrates For Hypoglycemia ) 15 - 30 gm PO UD PRN PRN Reason: Hypoglycemia Treatment Stop: 02/23/21 15:29 Nitroglycerin (Nitroglycerin Sl 0.4 Mg/Tab Tab) 0.4 mg SL UD PRN PRN Reason: Chest Pain Stop: 02/23/21 07:58 Olanzapine (Olanzapine 10 Mg/2.1 Ml Sdv) 2.5 mg IM Q6H PRN PRN Reason: Agitation Stop: 02/23/21 07:58 Last Admin: 01/28/21 08:18 Dose: 2.5 mg Documented by: Quetiapine Fumarate (Quetiapine Fumarate 25 Mg Tablet) 25 mg PO BID [facility] Stop: 02/25/21 20:59 Last Admin: 01/29/21 07:59 Dose: 25 mg Documented by:
[2021-01-29] MEDS: OLANZapine 10 MG/2.1 ML SDV IM PRN ×2 (12:52→23:06)
[2021-01-29] MEDS: INSULIN GLARGINE SOLOSTAR 100 UNITS/ML 3 ML PEN SC SCH (20:34)
--- NOTE | 2021-01-29 22:29 | Hospitalist Progress Note ---
Date of Service January 29, 2021 Assessment & Plan (1) Major neurocognitive disorder due to Alzheimer's disease, with behavioral disturbance: Plan: ASSESSMENT AND PLAN: An 80-year-old male who was brought in from home for agitation. 1. Major neurocognitive disorder, due to Alzheimer's disease, with behavioral disturbance Per admitting physician's notes: The patient is known to have a history of dementia, recently started with Seroquel by PCP, got one dose last night as per the . CT of the head, preliminary report unremarkable. Labs unremarkable except for mild troponin elevation. Evaluated by neurology and psychiatry service Continue Seroquel 25 mg twice daily as per psych Continue monitor EKG daily Zyprexa 2.5 mg every 6 hours as needed for agitation No benzodiazepines, narcotics, Benadryl Continue to utilize behavioral strategies for redirectionto avoid IM Zyprexa Case management on board for placement 2. History of tachybrady syndrome status post pacemaker. Monitor in telemetry unit 3.Mild elevation of troponin, mostly demand ischemia. Troponin went down from 0.3, to 0.2 EKG no acute ischemia Echocardiogram not able to obtain due to agitation Continue aspirin, statin and metoprolol 4. History of severe aortic regurgitation. Euvolemic Recent Cardiology visit recommended nonsurgical medical management. 5. Acute kidney injury and chronic kidney disease stage III baseline creatinine 1.2, present creatinine 1.5. Resolved after IV fluids 6. Diabetes. Most recent hemoglobin A1c 7.1 Continue to hold hold outpatient diabetic med On Lantus and NovoLog sliding scale History of coronary artery disease status post drug-eluting stents to LAD. Continue his home medications. 8. Enlargement in aortic root. Follows with Cardiology and follow the echocardiogram. 9. Hyperlipidemia: Continue statin. 10. Hypertension: BP stable currently Continue his home medication of losartan, metoprolol, amlodipine and Imdur. 11. History of anemia followed up with Hematology in 08/2018 and observation recommended. 12. History of thrombocytopenia Plt stable 13. Deep venous thrombosis prophylaxis: on Lovenox. Disposition Will need placement Admission and Anticipated Discharge Date Admission Date: January 24, 2021 Subjective Patient was seen and examined for follow-up of dementia with behavioral disturbance Sitting in chair with one-to-one sitter with no acute distress No agitation and calm he was able to follow command Denies any chest pain, palpitation, dizziness, shortness of breath. Review of Systems Review of Systems: All systems reviewed & are unremarkable except as noted in Subjective Physical Exam Physical Exam: General- No acute distress Head- atraumatic Eyes- PERRL, EOMI, ENT- oropharynx clear Neck- supple, no JVD Lungs- clear to auscultation Heart- regular rhythm; no murmur Abdomen- normal bowel sounds, soft, nontender Extremities- no calf tenderness Neuro- alert, PERRL, EOMI; no facial palsy; no dysarthria Skin- warm & dry Results & Data Results & Data ([facility]) Vital Signs (Past 12 Hours) Vital Signs Temp Pulse Pulse Resp BP BP Pulse Ox 01/29/21 19:25 36.4 C L 60 22 118/57 L 95 01/29/21 16:09 89 01/29/21 14:45 36.6 C 61 18 116/50 L 94
--- NOTE | 2021-01-29 22:41 | Electrocardiogram Report ---
Test Reason : Blood Pressure : / mmHG Vent. Rate : 070 BPM Atrial Rate : 070 BPM P-R Int : 264 ms QRS Dur : 156 ms QT Int : 446 ms P-R-T Axes : 000 090 090 degrees QTc Int : 481 ms Atrial-paced rhythm with prolonged AV conduction with Premature atrial complexes Right bundle branch block Abnormal ECG When compared with ECG of 24-JAN-2021 04:06, Premature atrial complexes are now Present QRS axis Shifted right Criteria for Septal infarct are no longer Present Confirmed by Carlos Huizar ([id number] on 01/29/2021 10:40:54 PM Referred By: REFERRED SELF Confirmed By:Carlos Huizar
[2021-01-30] MEDS: amLODIPine BESYLATE 5 MG TAB PO SCH (08:03)
[2021-01-30] MEDS: ISOSORBIDE MONO EXTENDED REL 60 MG TABCR PO SCH (08:03)
[2021-01-30] MEDS: ASPIRIN 81 MG ECTAB PO SCH (08:03)
[2021-01-30] MEDS: ATORVASTATIN 40 MG TAB PO SCH (08:03)
[2021-01-30] MEDS: LOSARTAN POTASSIUM 50 MG TAB PO SCH (08:04)
[2021-01-30] MEDS: METOPROLOL SUCC 25MG EXT REL TAB PO SCH (08:04)
[2021-01-30] MEDS: QUEtiapine FUMARATE 25 MG TABLET PO SCH ×2 (08:04→20:50)
[2021-01-30] MEDS: ENOXAPARIN INJ 40 MG/0.4 ML SYR SQ SCH (08:05)
[2021-01-30] MEDS: INSULIN ASPART PER UNIT SC SCH ×4 (08:27→20:49)
[2021-01-30 09:51] LABS: BUN Creatinine Ratio 39.5 (10-20); Creatinine Clr Calc Pharmacy 41.9 ml/min; Est GFR (African American) 61.4 ml/min; Potassium 3.8 mmol/L (3.5-5.1)
--- NOTE | 2021-01-30 12:29 | Communication Note ---
Date of Service: January 30, 2021 case reviewed as change from clinical care from Dr. Claire to myself through 02/04/21. QTc ,500. Has Zyprexa 2.5 mg for IM but not aggressive. Continue Seroquel 25 mg PO BID as appears to be improving. Liaison to follow.
[2021-01-30] MEDS: INSULIN GLARGINE SOLOSTAR 100 UNITS/ML 3 ML PEN SC SCH (20:50)
--- NOTE | 2021-01-30 21:45 | Hospitalist Progress Note ---
Date of Service January 30, 2021 Assessment & Plan (1) Major neurocognitive disorder due to Alzheimer's disease, with behavioral disturbance: Plan: ASSESSMENT AND PLAN: An 80-year-old male who was brought in from home for agitation. 1. Major neurocognitive disorder, due to Alzheimer's disease, with behavioral disturbance Per admitting physician's notes: The patient is known to have a history of dementia, recently started with Seroquel by PCP, got one dose last night as per the . CT of the head, preliminary report unremarkable. Labs unremarkable except for mild troponin elevation. Evaluated by neurology and psychiatry service Continue Seroquel 25 mg twice daily as per psych Continue monitor EKG daily Zyprexa 2.5 mg every 6 hours as needed for agitation No benzodiazepines, narcotics, Benadryl Continue to utilize behavioral strategies for redirectionto avoid IM Zyprexa Case management on board for placement 2. History of tachybrady syndrome status post pacemaker. Monitor in telemetry unit 3.Mild elevation of troponin, mostly demand ischemia. Troponin went down from 0.3, to 0.2 EKG no acute ischemia Echocardiogram not able to obtain due to agitation Continue aspirin, statin and metoprolol 4. History of severe aortic regurgitation. Euvolemic Recent Cardiology visit recommended nonsurgical medical management. 5. Acute kidney injury and chronic kidney disease stage III baseline creatinine 1.2, present creatinine 1.5. Resolved after IV fluids 6. Diabetes. Most recent hemoglobin A1c 7.1 Continue to hold hold outpatient diabetic med On Lantus and NovoLog sliding scale History of coronary artery disease status post drug-eluting stents to LAD. Continue his home medications. 8. Enlargement in aortic root. Follows with Cardiology and follow the echocardiogram. 9. Hyperlipidemia: Continue statin. 10. Hypertension: BP stable currently Continue his home medication of losartan, metoprolol, amlodipine and Imdur. 11. History of anemia followed up with Hematology in 08/2018 and observation recommended. 12. History of thrombocytopenia Plt stable 13. Deep venous thrombosis prophylaxis: on Lovenox. Disposition Will need placement Admission and Anticipated Discharge Date Admission Date: January 24, 2021 Subjective Patient was seen and examined for follow-up of dementia with behavioral disturbance Lying in bed with no acute distress Calm and follow command Spoke to at bedside that consider to try to take him home Patient denies any chest pain, palpitation, dizziness, shortness of breath Review of Systems Review of Systems: All systems reviewed & are unremarkable except as noted in Subjective Physical Exam Physical Exam: General- No acute distress Head- atraumatic Eyes- PERRL, EOMI, ENT- oropharynx clear Neck- supple, no JVD Lungs- clear to auscultation Heart- regular rhythm; no murmur Abdomen- normal bowel sounds, soft, nontender Extremities- no calf tenderness Neuro- alert, PERRL, EOMI; no facial palsy; no dysarthria Skin- warm & dry Results & Data Results & Data ([facility]) Vital Signs (Past 12 Hours) Vital Signs Temp Pulse Pulse Resp BP Pulse Ox 01/30/21 19:51 36.7 C 77 20 132/59 L 97 01/30/21 15:22 36.6 C 79 18 145/43 H 98 01/30/21 14:20 73 01/30/21 11:19 36.3 C L 78 19 123/49 L 92
[2021-01-30] MEDS: OLANZapine 10 MG/2.1 ML SDV IM PRN (22:26)
[2021-01-31] MEDS: METOPROLOL SUCC 25MG EXT REL TAB PO SCH (08:07)
[2021-01-31] MEDS: QUEtiapine FUMARATE 25 MG TABLET PO SCH ×2 (08:07→21:12)
[2021-01-31] MEDS: amLODIPine BESYLATE 5 MG TAB PO SCH (08:08)
[2021-01-31] MEDS: ASPIRIN 81 MG ECTAB PO SCH (08:08)
[2021-01-31] MEDS: ENOXAPARIN INJ 40 MG/0.4 ML SYR SQ SCH (08:09)
[2021-01-31] MEDS: ISOSORBIDE MONO EXTENDED REL 60 MG TABCR PO SCH (08:09)
[2021-01-31] MEDS: LOSARTAN POTASSIUM 50 MG TAB PO SCH (08:09)
[2021-01-31] MEDS: ATORVASTATIN 40 MG TAB PO SCH (08:09)
[2021-01-31] MEDS: INSULIN ASPART PER UNIT SC SCH ×4 (08:26→21:19)
--- NOTE | 2021-01-31 20:36 | Hospitalist Progress Note ---
Date of Service January 31, 2021 Assessment & Plan (1) Major neurocognitive disorder due to Alzheimer's disease, with behavioral disturbance: Plan: ASSESSMENT AND PLAN: An 80-year-old male who was brought in from home for agitation. 1. Major neurocognitive disorder, due to Alzheimer's disease, with behavioral disturbance Per admitting physician's notes: The patient is known to have a history of dementia, recently started with Seroquel by PCP, got one dose last night as per the . CT of the head, preliminary report unremarkable. Labs unremarkable except for mild troponin elevation. Evaluated by neurology and psychiatry service Continue Seroquel 25 mg twice daily as per psych Continue monitor EKG Zyprexa 2.5 mg every 6 hours as needed for agitation, Only received 1 dose last night No benzodiazepines, narcotics, Benadryl Continue to utilize behavioral strategies for redirectionto avoid IM Zyprexa Case management on board for placement is considering to take her home since he has been very calm mostly 2. History of tachybrady syndrome status post pacemaker. 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 Troponin went down from 0.3, to 0.2 EKG no acute ischemia Echocardiogram not able to obtain due to agitation Continue aspirin, statin and metoprolol 4. History of severe aortic regurgitation. Euvolemic Recent Cardiology visit recommended nonsurgical medical management. 5. Acute kidney injury and chronic kidney disease stage III baseline creatinine 1.2, present on admission with creatinine 1.5. Creatinine 1.2 after receiving IVF Resolved 6. Diabetes. Most recent hemoglobin A1c 7.1 Continue to hold hold outpatient diabetic med On Lantus and NovoLog sliding scale Continue monitor BS History of coronary artery disease status post drug-eluting stents to LAD. Continue his home medications. 8. Enlargement in aortic root. Follows with Cardiology and follow the echocardiogram. 9. Hyperlipidemia: Continue statin. 10. Hypertension: BP stable currently Continue his home medication of losartan, metoprolol, amlodipine and Imdur. 11. History of anemia followed up with Hematology in 08/2018 and observation recommended. 12. History of thrombocytopenia Plt stable 13. Deep venous thrombosis prophylaxis: on Lovenox. Disposition Waiting for placement, but is considering to take him home Admission and Anticipated Discharge Date Admission Date: January 24, 2021 Subjective Patient was seen and examined for follow-up of dementia with behavioral disturbance Lying in bed with no acute distress Calm and follow command Patient denies any chest pain, palpitation, dizziness, shortness of breath Review of Systems Review of Systems: All systems reviewed & are unremarkable except as noted in Subjective Physical Exam Physical Exam: General- No acute distress Head- atraumatic Eyes- PERRL, EOMI, ENT- oropharynx clear Neck- supple, no JVD Lungs- clear to auscultation Heart- regular rhythm; no murmur Abdomen- normal bowel sounds, soft, nontender Extremities- no calf tenderness Neuro- alert, PERRL, EOMI; no facial palsy; no dysarthria Skin- warm & dry Results & Data Results & Data ([facility]) Vital Signs (Past 12 Hours) Vital Signs Temp Pulse Pulse Resp BP Pulse Ox 01/31/21 20:21 36.6 C 67 16 129/61 96 01/31/21 14:20 65
[2021-01-31] MEDS: INSULIN GLARGINE SOLOSTAR 100 UNITS/ML 3 ML PEN SC SCH (21:19)
[2021-01-31] MEDS: OLANZapine 10 MG/2.1 ML SDV IM PRN (22:05)
[2021-01-31] MEDS ORDERED: OLANZapine 10 MG/2.1 ML SDV IM STA (22:37)
[2021-02-01] MEDS: OLANZapine 10 MG/2.1 ML SDV IM PRN (06:17)
[2021-02-01] MEDS: ENOXAPARIN INJ 40 MG/0.4 ML SYR SQ SCH (09:31)
[2021-02-01] MEDS: ATORVASTATIN 40 MG TAB PO SCH (09:33)
[2021-02-01] MEDS: ISOSORBIDE MONO EXTENDED REL 60 MG TABCR PO SCH (09:33)
[2021-02-01] MEDS: METOPROLOL SUCC 25MG EXT REL TAB PO SCH (09:33)
[2021-02-01] MEDS: QUEtiapine FUMARATE 25 MG TABLET PO SCH ×2 (09:33→21:25)
[2021-02-01] MEDS: amLODIPine BESYLATE 5 MG TAB PO SCH (09:34)
[2021-02-01] MEDS: LOSARTAN POTASSIUM 50 MG TAB PO SCH (09:34)
[2021-02-01] MEDS: ASPIRIN 81 MG ECTAB PO SCH (09:34)
[2021-02-01] MEDS: INSULIN ASPART PER UNIT SC SCH ×4 (09:35→20:10)
--- NOTE | 2021-02-01 17:03 | Communication Note ---
Date of Service: February 01, [address] Mock as patient is still requiring prn Zyprexa most nights and all it and Seroquel are both low dose, need to minimize given current QTc>500. Patient has received benefit from both and continues with significant sundowning, other agents such as Haldol would be more likely to prolong QTc. Suggested shifting pm dose of Seroquel earlier since prn often given soon after and monitor Qtc.
--- NOTE | 2021-02-01 21:16 | Hospitalist Progress Note ---
Date of Service February 01, 2021 Assessment & Plan (1) Major neurocognitive disorder due to Alzheimer's disease, with behavioral disturbance: Plan: ASSESSMENT AND PLAN: An 80-year-old male who was brought in from home for agitation. 1. Major neurocognitive disorder, due to Alzheimer's disease, with behavioral disturbance Per admitting physician's notes: The patient is known to have a history of dementia, recently started with Seroquel by PCP, got one dose last night as per the . CT of the head, preliminary report unremarkable. Labs unremarkable except for mild troponin elevation. Evaluated by neurology and psychiatry service Continue Seroquel 25 mg twice daily as per psych Continue monitor EKG for QTC, most recent was 511 Zyprexa 2.5 mg every 6 hours as needed for agitation, Only received 1 dose last night No benzodiazepines, narcotics, Benadryl Continue to utilize behavioral strategies for redirectionto avoid IM Zyprexa Case management on board for placement is considering to take her home since he has been very calm mostly History of tachybrady syndrome status post pacemaker. We will consider to DC campus monitor .Mild elevation of troponin, mostly demand ischemia. Troponin went down from 0.3, to 0.2 EKG no acute ischemia Echocardiogram not able to obtain due to agitation Continue aspirin, statin and metoprolol History of severe aortic regurgitation. Euvolemic Recent Cardiology visit recommended nonsurgical medical management. Acute kidney injury and chronic kidney disease stage III baseline creatinine 1.2, present on admission with creatinine 1.5. Creatinine 1.2 after receiving IVF Resolved Urinary retention Possible related to mediation Continue bladder scan and straight if Bladder colin greater than 400 Continue monitor closely Diabetes. Most recent hemoglobin A1c 7.1 Continue to hold hold outpatient diabetic med On Lantus and NovoLog sliding scale Continue monitor BS History of coronary artery disease status post drug-eluting stents to LAD. Continue his home medications. Enlargement in aortic root. Follows with Cardiology and follow the echocardiogram. Hyperlipidemia: Continue statin. Hypertension: BP stable currently Continue his home medication of losartan, metoprolol, amlodipine and Imdur. History of anemia followed up with Hematology in 08/2018 and observation recommended. History of thrombocytopenia Plt stable Deep venous thrombosis prophylaxis: on Lovenox. Disposition Waiting for placement, but is considering to take him home Admission and Anticipated Discharge Date Admission Date: January 24, 2021 Subjective Patient was seen and examined for follow-up of dementia with behavioral disturbance Lying in bed with no acute distress with 1 to 1 sitter Pt has been sleeping mostly today Nurse said that he has been having urinary retention Patient denies any chest pain, palpitation, dizziness, shortness of breath Review of Systems Review of Systems: All systems reviewed & are unremarkable except as noted in Subjective Physical Exam Physical Exam: General- No acute distress Head- atraumatic Eyes- PERRL, EOMI, ENT- oropharynx clear Neck- supple, no JVD Lungs- clear to auscultation Heart- regular rhythm; no murmur Abdomen- normal bowel sounds, soft, nontender Extremities- no calf tenderness Neuro- alert, PERRL, EOMI; no facial palsy; no dysarthria Skin- warm & dry Results & Data Results & Data ([facility]) Vital Signs (Past 12 Hours) Vital Signs Temp Pulse Pulse Resp BP Pulse Ox 02/01/21 19:10 36.5 C 63 18 152/53 H 94 02/01/21 15:00 36.4 C L 59 L 20 119/49 L 96 02/01/21 14:20 69 02/01/21 11:00 36.4 C L 66 22 103/51 L 95 02/01/21 09:36 74
[2021-02-01] MEDS: INSULIN GLARGINE SOLOSTAR 100 UNITS/ML 3 ML PEN SC SCH (21:25)
[2021-02-02] MEDS: ATORVASTATIN 40 MG TAB PO SCH (09:05)
[2021-02-02] MEDS: amLODIPine BESYLATE 5 MG TAB PO SCH (09:05)
[2021-02-02] MEDS: ENOXAPARIN INJ 40 MG/0.4 ML SYR SQ SCH (09:05)
[2021-02-02] MEDS: ASPIRIN 81 MG ECTAB PO SCH (09:05)
[2021-02-02] MEDS: LOSARTAN POTASSIUM 50 MG TAB PO SCH (09:06)
[2021-02-02] MEDS: METOPROLOL SUCC 25MG EXT REL TAB PO SCH (09:06)
[2021-02-02] MEDS: QUEtiapine FUMARATE 25 MG TABLET PO SCH ×2 (09:07→18:26)
[2021-02-02] MEDS: INSULIN ASPART PER UNIT SC SCH ×4 (09:20→20:45)
[2021-02-02] MEDS: ISOSORBIDE MONO EXTENDED REL 60 MG TABCR PO SCH (09:23)
--- NOTE | 2021-02-02 12:10 | Communication Note ---
Date of Service: February 02, [address] Mock as patient found to have urinary retention and unclear if related to BPH/stricture and contributing to his previous agitation or could be related to anticholinergic effects of antipsychotic medications, specifically low dose Seroquel. The latter is rather unlikely at such a low dose but patient is 80 and has been receiving Zyprexa 2.5 mg IM daily as well. QTc 511 yesterday. At this point would recommend decrease in Seroquel to 12.5 mg BID and monitor with only sparing use of prn with ongoing monitoring of QTc and urine output (currently with diaz).
[2021-02-02] MEDS: INSULIN GLARGINE SOLOSTAR 100 UNITS/ML 3 ML PEN SC SCH (20:45)
--- NOTE | 2021-02-02 21:53 | Hospitalist Progress Note ---
Date of Service February 02, 2021 Assessment & Plan (1) Major neurocognitive disorder due to Alzheimer's disease, with behavioral disturbance: Plan: ASSESSMENT AND PLAN: An 80-year-old male who was brought in from home for agitation. 1. Major neurocognitive disorder, due to Alzheimer's disease, with behavioral disturbance Per admitting physician's notes: The patient is known to have a history of dementia, recently started with Seroquel by PCP, got one dose last night as per the . CT of the head, preliminary report unremarkable. Labs unremarkable except for mild troponin elevation. Evaluated by neurology and psychiatry service Continue Seroquel 25 mg twice daily as per psych EKG on 02/01 with QTC 511. Repeat EKG today showed QTC improved with 480 Continue monitor EKG for QTC Zyprexa 2.5 mg every 6 hours as needed for agitation, Only received 1 dose last night No benzodiazepines, narcotics, Benadryl Continue to utilize behavioral strategies for redirectionto avoid IM Zyprexa Case discussed with psych team that recommend to decrease the Seroquel to 12.5 twice daily Case management on board for placement is considering to take her home since he has been very calm mostly Urinary retention Possible related to mediation side effect vs BPH Bautista cath was placed Not sure if Seroquel continue to no increase in urinary retention, but will decrease to 12.5 twice daily We will consult urology Not sure if patient is a good candidate to discharge home with Bautista due to increased agitation and confusion Continue monitor closely History of tachybrady syndrome status post pacemaker. 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 Troponin went down from 0.3, to 0.2 EKG no acute ischemia Echocardiogram not able to obtain due to agitation Continue aspirin, statin and metoprolol History of severe aortic regurgitation. Euvolemic Recent Cardiology visit recommended nonsurgical medical management. Acute kidney injury and chronic kidney disease stage III baseline creatinine 1.2, present on admission with creatinine 1.5. Creatinine 1.2 after receiving IVF Resolved Diabetes. Most recent hemoglobin A1c 7.1 Continue to hold hold outpatient diabetic med On Lantus and NovoLog sliding scale Continue monitor BS History of coronary artery disease status post drug-eluting stents to LAD. Continue his home medications. Enlargement in aortic root. Follows with Cardiology and follow the echocardiogram. Hyperlipidemia: Continue statin. Hypertension: BP stable currently Continue his home medication of losartan, metoprolol, amlodipine and Imdur. History of anemia followed up with Hematology in 08/2018 and observation recommended. History of thrombocytopenia Plt stable Deep venous thrombosis prophylaxis: on Lovenox. Disposition Waiting for placement, but is considering to take him home Admission and Anticipated Discharge Date Admission Date: January 24, 2021 Subjective Patient was seen and examined for follow-up of dementia with behavioral disturbance Lying in bed with no acute distress with 1 to 1 sitter Bautista was placed due to urinary retention Patient denies any chest pain, palpitation, dizziness, shortness of breath Review of Systems Review of Systems: All systems reviewed & are unremarkable except as noted in Subjective Physical Exam Physical Exam: General- No acute distress Head- atraumatic Eyes- PERRL, EOMI, ENT- oropharynx clear Neck- supple, no JVD Lungs- clear to auscultation Heart- regular rhythm; no murmur Abdomen- normal bowel sounds, soft, nontender Extremities- no calf tenderness Neuro- alert, PERRL, EOMI; no facial palsy; no dysarthria Skin- warm & dry Results & Data Results & Data ([facility]) Vital Signs (Past 12 Hours) Vital Signs Temp Pulse Pulse Resp BP Pulse Ox Pulse Ox 02/02/21 20:00 36.5 C 70 16 137/63 97 02/02/21 19:00 97 02/02/21 15:55 71
--- NOTE | 2021-02-03 05:48 | Urology Consultation ---
Date of Consultation February 03, 2021 Assessment & Plan (1) Urinary retention: Cause of patient's urinary retention is unclear. It is uncertain if patient is suffering from BPH which certainly possible given his age. May also be medication side effect from Seroquel the psychiatry felt at the patient's low-dose this was unlikely. Therefore we recommend proceeding as follows: Consider checking a PSA level Consider adding Flomax but will defer this to medicine in light of the other psychiatric medications patient is taking Maintain Bautista catheter for for bladder rest with consideration of voiding trial in a few days. History of Present Illness Reason for Consultation: Urinary retention Attending Physician: Aj Mock MD History of Present Illness Is an 80-year-old male who is admitted to [facility] on 01/24/2021 secondary to agitation. Patient has underlying dementia with be havioral disturbance and therefore could not provide much in the way of historical information. Review of chart was used to complete majority of the consult. It appears that the patient is having increased confusion and agitation at home prompting his admission. Due to his agitation he has recently been started on low-dose Seroquel. Proximally 2 days ago the patient was noted to have urinary retention requiring Bautista catheter placement. Is uncertain if patient's urinary retention was contributing to his agitation. Bautista catheter was placed and it should be noted that a coud catheter was required. Patient was then unable to tell me if he has had any urinary symptoms such as decreased force of stream or incomplete bladder emptying. Review of patient's labs and imaging this admission did reveal a CT scan of the head on 01/24/2021 that showed no acute intracranial pathology however small vessel disease was noted. He also had a chest x-ray on 01/24/2021 that showed no evidence of pneumonia or CHF. Most recent labs were CBC from 01/28/2021 that showed a normal white blood cell count as well as a normal platelet count. His hemoglobin and hematocrit were 12.7 and 37.7. Coagulation studies from 01/25/2021 were noted to be normal. Most recent chemistry profile was from 01/30/2021 which showed a sodium and potassium that within normal range. His BUN showed a slight elevation at 50 but his creatinine was within normal range. Should be noted that his creatinine was slightly elevated at 1.5 at time of admission. Urinalysis was performed on 01/24/2021 and was not indicative of infection. He had a Covid test on 01/24/2021 that was noted to be negative. At the time of my interview the patient was resting comfortably in bed he did not appear to be in distress. Allergies Allergy/AdvReac Type Severity Reaction Status Date / Time Penicillins Allergy Intermediate TOES Unverified 01/24/21 14:46 SWELL/ITCHY Home Medications Medication Instructions Recorded Confirmed Type amlodipine 5 mg tablet 5 mg PO DAILY 07/07/20 01/24/21 History glipizide 5 mg tablet 5 mg PO BID 07/07/20 01/24/21 History hydrochlorothiazide 12.5 mg capsule 12.5 mg PO DAILY 07/07/20 01/24/21 History isosorbide mononitrate 60 mg 60 mg PO QAM 07/07/20 01/24/21 History tablet,extended release 24 hr aspirin 81 mg tablet,delayed 81 mg PO DAILY 01/24/21 01/24/21 History release atorvastatin 80 mg tablet 80 mg PO DAILY 01/24/21 01/24/21 History azithromycin 500 mg tablet 500 mg PO DAILY 01/24/21 01/24/21 History ergocalciferol (vitamin D2) 1,000 10 mcg PO DAILY 01/24/21 01/24/21 History unit capsule lorazepam 0.5 mg tablet 0.5 mg PO BID PRN 01/24/21 01/24/21 History losartan 100 mg tablet 100 mg PO DAILY 01/24/21 01/24/21 History metformin 500 mg tablet 500 mg PO BID 01/24/21 01/24/21 History metoprolol succinate 25 mg capsule 25 mg PO DAILY 01/24/21 01/24/21 History sprinkle, ext. release 24 hr nitroglycerin 0.4 mg sublingual 0.4 mg SUBLINGUAL DAILY 01/24/21 01/24/21 History tablet quetiapine 50 mg tablet (Seroquel) 50 mg PO HS 01/24/21 01/24/21 History Patient History Medical History Agitation due to dementia Aortic regurgitation CKD (chronic kidney disease), stage III Type 2 diabetes mellitus with unspecified complications Surgical History H/O colonoscopy History of appendectomy Social History Smoking Status: Never smoker Second Hand Exposure: No; Hx Alcohol Use: No Hx Substance Use: No Preferred Language: Romanian Communication Ability: Effective Scaling Machine Operator Required: No Beliefs That Will Affect Care: None Current Living Situation: Spouse Feels Safe at Home: Yes Assistive Devices: None Review of Systems Review of Systems: All systems reviewed & are unremarkable except as noted in HPI & below and Unobtainable due to cognitive status Physical Exam Constitutional: well developed and well nourished; no acute distress Eyes: no conjunctival abnormality ENMT: Ears: no external ear abnormality Neck: trachea midline Respiratory: normal respiratory effort, lungs clear to auscultation Cardiovascular: Rate/Rhythm: regular rate and regular rhythm Gastrointestinal (Abdomen): Abdomen soft nondistended. Palpation did not cause pain Musculoskeletal: No gross orthopedic abnormalities Skin: no rashes Neurologic: moves all extremities Results & Data ([facility]) Vital Signs (Past 12 Hours) Vital Signs Temp Pulse Pulse Pulse Resp BP Pulse Ox 02/03/21 04:00 72 16 02/02/21 23:22 63 02/02/21 20:00 36.5 C 70 16 137/63 97 02/02/21 19:00 Pulse Ox 02/03/21 04:00 02/02/21 23:22 02/02/21 20:00 02/02/21 19:00 97 PG Care Time/CCT Total # of Minutes Spent Total Time Spent with Patient: Total time spent is greater than 50% in coordination of care (as documented) at patient's floor/unit and/or counseling patient: Coding Level of Care Code 11017 Inpt Consult Level 4 Diagnoses Urinary retention R33.9
[2021-02-03] MEDS: INSULIN ASPART PER UNIT SC SCH ×4 (08:43→20:08)
[2021-02-03 09:06] LABS: BUN Creatinine Ratio 25.3 (10-20); Calcium 9.1 mg/dl (8.5-10.1); Creatinine Clr Calc Pharmacy 34.3 ml/min; Est GFR (African American) 52.8 ml/min; Est GFR (Non-African American) 45.5 ml/min; Potassium 3.9 mmol/L (3.5-5.1)
[2021-02-03] MEDS: amLODIPine BESYLATE 5 MG TAB PO SCH (10:24)
[2021-02-03] MEDS: ASPIRIN 81 MG ECTAB PO SCH (10:24)
[2021-02-03] MEDS: ATORVASTATIN 40 MG TAB PO SCH (10:25)
[2021-02-03] MEDS: ISOSORBIDE MONO EXTENDED REL 60 MG TABCR PO SCH (10:25)
[2021-02-03] MEDS: ENOXAPARIN INJ 40 MG/0.4 ML SYR SQ SCH (10:25)
[2021-02-03] MEDS: METOPROLOL SUCC 25MG EXT REL TAB PO SCH (10:25)
[2021-02-03] MEDS: LOSARTAN POTASSIUM 50 MG TAB PO SCH (10:25)
[2021-02-03] MEDS: QUEtiapine FUMARATE 25 MG TABLET PO SCH ×2 (10:26→18:23)
--- NOTE | 2021-02-03 11:16 | Psychiatric Progress Note ---
Date of Service February 03, 2021 Impression / Recommendations Impression per Dr. Claire: 80 yo man with major neurocognitive disorder with behavioral disturbance with worsening agitation and confusion over the last week. This could represent worsening of his dementia versus superimposed delirium. Appropriate to started seroquel given level of aggression and agitation causing danger to himself and others though recommend using the lowest necessary dose given black box risk for increased all cause mortality in dementia and his elevated QTc. Risks/benefit profile continues to favor low dose antipsychotic use, even with QTc changes, given high level of aggression but QTc will need to be monitored closely. 02/03/21: intermittent agitation, typically around diaz/urinary retention. Plan: continue to limit antipsychotics due to QTc and possible anticholinergic effects worsening underlying urinary retention. If QTc <500 would probably benefit from 12.5 mg Seroquel am and 25 mg po qpm. (1) Major neurocognitive disorder due to Alzheimer's disease, with behavioral disturbance: Interval History Identifying Information 80 yo man with major neurocognitive disorder and multiple medical comorbidities was admitted medically after increased behaviors of agitation at home. Psychiatry was consulted for medication management of agitated confusion. Chief Complaint "I'm pretty good today". Review of Systems Notes patient is unable to provide, currently tolerating Diaz, forgets he has it. Subjective Subjective Patient was seen & assessed and interval progress reviewed. 1-on-1 states this is the calmest she's seen him this am. Unsure how he is chewing/moving neck when eating. Did have issues tugging at his diaz and restless last night. RN felt may be related to decrease in seroquel. Note that patient did get 25 mg Seroquel in am so only change yesterday was the 12.5 mg in pm. Was maintained without Zyprexa. Physical Exam Psychiatric Orientation: oriented to person; + not oriented to place Apperance: appropriately dressed and appropriately groomed Eye Contact: good eye contact Motor Behavior: no abnormal motor movements; n EPS Speech: normal rate/rhythm/volume of speech Affect: euthymic affect Mood: no anxious mood Thought Process: + concrete thought process Thought Content: reality based without delusions Hallucinations: no auditory hallucinations and no visual hallucinations Cognition: + recent memory not intact and + language not intact Insight: + impaired insight Vital Signs (Past 24 Hours) Last Vital Signs Temp 36.8 C 02/03/21 08:07 Pulse 62 02/03/21 08:07 Resp 16 02/03/21 08:07 BP 156/73 H 02/03/21 08:07 Pulse Ox 96 02/03/21 08:07 Results & Data (U) Laboratory Results Laboratory Results - last 24 hr 02/02/21 02/02/21 02/02/21 11:39 16:34 19:53 Sodium Potassium Chloride Carbon Dioxide Anion Gap BUN Creatinine Est Cr Clr Drug Dosing Est GFR ( Amer) Est GFR (Non-Af Amer) BUN/Creatinine Ratio Glucose POC Glucose 174 H 112 H 204 H Calcium 02/03/21 02/03/21 07:54 08:17 Sodium 144 Potassium 3.9 Chloride 114 H Carbon Dioxide 25 Anion Gap 6.0 BUN 36 H Creatinine 1.44 H Est Cr Clr Drug Dosing 34.3 Est GFR ( Amer) 52.8 Est GFR (Non-Af Amer) 45.5 BUN/Creatinine Ratio 25.3 H Glucose 113 H POC Glucose 110 H Calcium 9.1 Current Inpatient Medications Current Inpatient Medications: Current Inpatient Medications Acetaminophen (Acetaminophen 325 Mg Tab) 650 mg PO Q4H PRN PRN Reason: Pain or Fever Stop: 02/23/21 07:58 Last Admin: 01/26/21 07:42 Dose: 650 mg Documented by: Amlodipine Besylate (Amlodipine Besylate 5 Mg Tab) 5 mg PO DAILY [facility] Stop: 02/25/21 09:14 Last Admin: 02/03/21 10:24 Dose: 5 mg Documented by: Aspirin (Aspirin 81 Mg Ectab) 81 mg PO DAILY [facility] Stop: 02/25/21 09:14 Last Admin: 02/03/21 10:24 Dose: 81 mg Documented by: Atorvastatin Calcium (Atorvastatin 40 Mg Tab) 80 mg PO DAILY [facility] Stop: 02/25/21 09:14 Last Admin: 02/03/21 10:25 Dose: 80 mg Documented by: Dextrose (Dextrose 50% 50 Ml Syringe) 25 - 50 ml IV UD PRN; Protocol PRN Reason: Hypoglycemia Protocol Stop: 02/23/21 15:29 Enoxaparin Sodium (Enoxaparin Inj 40 Mg/0.4 Ml Syr) 40 mg SQ Q24H [facility] Stop: 02/23/21 08:59 Last Admin: 02/03/21 10:25 Dose: 40 mg Documented by: Glucagon (Glucagon For Inj 1 Mg Vial) 1 mg IM UD PRN; Protocol PRN Reason: Hypoglycemia Protocol Stop: 02/23/21 15:29 Glucose (Glucose 40% Gel 15 Gm Tube) 15 - 30 gm PO UD PRN; Protocol PRN Reason: Hypoglycemia Protocol Stop: 02/23/21 15:29 Glucose (Glucose 10 Tabs/Tube) 4 - 8 tabs PO UD PRN; Protocol PRN Reason: Hypoglycemia Protocol Stop: 02/23/21 15:29 Hydralazine HCl (Hydralazine Hcl 20 Mg/Ml Vial) 5 mg IV Q6H PRN PRN Reason: systolic bp > 160 Stop: 02/24/21 09:59 Last Admin: 01/26/21 07:37 Dose: 5 mg Documented by: Hydrochlorothiazide (Hydrochlorothiazide 25 Mg Tab) 12.5 mg PO DAILY [facility] Stop: 02/26/21 08:59 Last Admin: 01/28/21 08:39 Dose: 12.5 mg Documented by: Insulin Aspart (Insulin Aspart Per Unit) 0 units SC ACHS [facility] Stop: 02/27/21 07:29 Last Admin: 02/03/21 08:43 Dose: Not Given Documented by: Insulin Glargine (Insulin Glargine Solostar 100 Units/Ml 3 Ml Pen) 10 units SC HS [facility] Stop: 02/27/21 20:59 Last Admin: 02/02/21 20:45 Dose: 10 units Documented by: Isosorbide Mononitrate (Isosorbide [place]ne Extended Rel 60 Mg Tabcr) 60 mg PO QAM [facility] Stop: 02/25/21 09:14 Last Admin: 02/03/21 10:25 Dose: 60 mg Documented by: Losartan Potassium (Losartan Potassium 50 Mg Tab) 100 mg PO DAILY [facility] Stop: 02/25/21 09:14 Last Admin: 02/03/21 10:25 Dose: 100 mg Documented by: Metoprolol Succinate (Metoprolol Succ 25mg Ext Rel Tab) 25 mg PO DAILY [facility] Stop: 02/25/21 09:14 Last Admin: 02/03/21 10:25 Dose: 25 mg Documented by: Miscellaneous (Carbohydrates For Hypoglycemia ) 15 - 30 gm PO UD PRN PRN Reason: Hypoglycemia Treatment Stop: 02/23/21 15:29 Nitroglycerin (Nitroglycerin Sl 0.4 Mg/Tab Tab) 0.4 mg SL UD PRN PRN Reason: Chest Pain Stop: 02/23/21 07:58 Olanzapine (Olanzapine 10 Mg/2.1 Ml Sdv) 2.5 mg IM Q6H PRN PRN Reason: Agitation Stop: 02/23/21 07:58 Last Admin: 02/01/21 06:17 Dose: 2.5 mg Documented by: Quetiapine Fumarate (Quetiapine Fumarate 25 Mg Tablet) 12.5 mg PO BID@0900,1900 [facility] Stop: 03/04/21 18:59 Last Admin: 02/03/21 10:26 Dose: 12.5 mg Documented by:
--- NOTE | 2021-02-03 11:24 | Hospitalist Progress Note ---
Date of Service February 03, 2021 Assessment & Plan (1) Major neurocognitive disorder due to Alzheimer's disease, with behavioral disturbance: Plan: Major neurocognitive disorder, due to Alzheimer's disease, with behavioral disturbance CT of the head, preliminary report unremarkable. Labs unremarkable except for mild troponin elevation. Evaluated by neurology and psychiatry service Zyprexa 2.5 mg every 6 hours as needed for agitation,Has not required any dose in the past 24h No benzodiazepines, narcotics, Benadryl Continue to utilize behavioral strategies for redirectionto avoid IM Zyprexa Psych recs appreciated. Continue Seroquel 12.5 mg twice daily. May increase nighttime dose to 25 mg by psychiatry. Check EKG to monitor QTC Case management on board for placement is considering to take her home since he has been very calm mostly Urinary retention Possible related to mediation side effect vs BPH Bautista cath was placed Urology recommendations appreciated Will start tamsulosin for now and monitor Not sure if patient is a good candidate to discharge home with Bautista due to increased agitation and confusion Continue monitor closely History of tachybrady syndrome status post pacemaker. Paced rhythm on tele Mild elevation of troponin, possibly demand ischemia. Troponin went down from 0.3, to 0.2 EKG no acute ischemia Echocardiogram not able to obtain due to agitation Continue aspirin, statin and metoprolol History of severe aortic regurgitation. Euvolemic Recent Cardiology visit recommended nonsurgical medical management. Acute kidney injury and chronic kidney disease stage III Baseline creatinine 1.2, present on admission with creatinine 1.5. Got some IVF Cr is 1.4 today. Monitor Diabetes mellitus Most recent hemoglobin A1c 7.1 Continue to hold hold outpatient diabetic med On Lantus and NovoLog sliding scale Continue monitor BS History of coronary artery disease status post drug-eluting stents to LAD. Continue his home medications. Enlargement in aortic root. Follows with Cardiology and follow the echocardiogram. Hyperlipidemia: Continue statin. Hypertension: Continue his home medication of losartan, metoprolol, amlodipine and Imdur. History of anemia followed up with Hematology in 08/2018 and observation recommended. Hb stable History of thrombocytopenia Plt stable Deep venous thrombosis prophylaxis: on Lovenox. Disposition Per Dr Mock is considering to take him home. However, needs sometime to get med issues under better control Admission and Anticipated Discharge Date Admission Date: January 24, 2021 Subjective 80-year-old male with past medical history significant for type 2 diabetes, aortic ectasia of the abdominal, aortic regurgitation, aortic root dilatation, history of benign neoplasm of colon, chronic kidney disease stage III, hypertension, history of dementia, history of thrombocytopenia, history of ST elevated SD, presents with agitation. Being managed for neurocognitive disorder due to Alzheimer's with behavioral dis turbance, urinary retention. Patient seen and examined this morning. He is awake and alert oriented to person only and appears confused as to where he is. Mental status limits full review of systems per patient denied any complaints Per RN, patient had no event overnight. Sitter stated that patient has been calm this morning and cooperative. Physical Exam Constitutional: + well hydrated; no acute distress Eyes: PERRL, conjunctivae normal, anicteric sclerae ENMT: external ear and nose normal, oropharynx normal Respiratory: normal respiratory effort, lungs clear to auscultation Cardiovascular: Rate/Rhythm: regular rate and regular rhythm S1-S2. No pedal edema Gastrointestinal (Abdomen): normal bowel sounds, soft, nontender, no hepatosplenomegaly Musculoskeletal: No pedal edema Neurologic: PERRL, EOMI, accommodation nl, no face palsy, no dysarthria Psychiatric: Alert and oriented to person only. Confused but cooperative Results & Data Results & Data ([facility]) Vital Signs (Past 12 Hours) Vital Signs Temp Pulse Pulse Pulse Resp BP Pulse Ox 02/03/21 08:07 36.8 C 62 16 156/73 H 96 02/03/21 07:42 65 02/03/21 04:00 72 16 Laboratory Results Abnormal lab results 02/02/21 02/02/21 02/02/21 Range/Units 11:39 16:34 19:53 Chloride (98-107) mmol/L BUN (7-18) mg/dl Creatinine (0.6-1.4) mg/dl BUN/Creatinine Ratio (10-20) Glucose (70-99) mg/dl POC Glucose 174 H 112 H 204 H (70-99) mg/dl 02/03/21 02/03/21 Range/Units 07:54 08:17 Chloride 114 H (98-107) mmol/L BUN 36 H (7-18) mg/dl Creatinine 1.44 H (0.6-1.4) mg/dl BUN/Creatinine Ratio 25.3 H (10-20) Glucose 113 H (70-99) mg/dl POC Glucose 110 H (70-99) mg/dl
--- NOTE | 2021-02-03 11:25 | Urology Progress Note ---
Date of Service February 03, 2021 Assessment & Plan (1) Urinary retention: Plan: 80yo M with major neurocognitive disorder with behavioral disturbance admitted with worsening agitation and confusion and was subsequently found to have urinary retention. - Urology consulted for urinary retention - Bautista catheter placed on 02/02 with >700ml of urine output - Unclear etiology of urinary retention, possibly related to medication side effects and/or underlying BPH given his age. - Afebrile, non-toxic appearing. - Labs reviewed- Creatinine 1.44 (previously 1.27 on 01/30) - Continue to trend - UA from admission (01/24) was negative - Recommend urine culture to r/o underlying infection - Bautista catheter intact, draining clear yellow urine - Output appears adequate, continue to monitor - Continue supportive care and close monitoring - Consider adding Flomax but will defer this to medicine in light of the other psychiatric medications patient is taking - Maintain Bautista catheter for bladder rest with consideration of voiding trial the night before his anticipated discharge as pt may not be a good candidate to discharge home with a catheter. - Will arrange outpatient follow-up with urology for continued care and voiding trial if pt still has a catheter. - will sign-off, please contact us with any further questions or concerns. Admission and Anticipated Discharge Date Admission Date: January 24, 2021 Supervising Physician Co-Signing Physician Notes Discussed patient with [facility]. Agree with plan. Maintain Bautista catheter but reasonable to try void trial prior to discharge due to concern for agitation and pulling on catheter. Urology can see as an outpatient. Subjective Pt examined at bedside this AM. Awake, resting in bed on arrival. Nursing at bedside. No acute distress. Bautista catheter intact, draining clear yellow urine. Review of Systems Review of Systems: Unobtainable due to cognitive status Physical Exam Constitutional: no acute distress Respiratory: no respiratory distress and no labored breathing Neurologic: moves all extremities and awake Genitourinary: Bautista intact Results & Data ([facility]) Vital Signs (Past 12 Hours) Vital Signs Temp Pulse Pulse Pulse Resp BP Pulse Ox 02/03/21 08:07 36.8 C 62 16 156/73 H 96 02/03/21 07:42 65 02/03/21 04:00 72 16 PG Care Time/CCT Total # of Minutes Spent Total Time Spent with Patient: Total time spent is greater than 50% in coordination of care (as documented) at patient's floor/unit and/or counseling patient: Coding Level of Care Code None Diagnoses Urinary retention R33.9
[2021-02-03] MEDS ORDERED: TAMSULOSIN HCL 0.4 MG CAP PO ONE (11:34)
[2021-02-03] MEDS: INSULIN GLARGINE SOLOSTAR 100 UNITS/ML 3 ML PEN SC SCH (20:08)
--- NOTE | 2021-02-04 06:14 | Electrocardiogram Report ---
Test Reason : Blood Pressure : / mmHG Vent. Rate : 068 BPM Atrial Rate : 068 BPM P-R Int : 162 ms QRS Dur : 144 ms QT Int : 452 ms P-R-T Axes : 084 -37 -05 degrees QTc Int : 480 ms Atrial-paced rhythm with occasional Premature ventricular complexes Left axis deviation Right bundle branch block Abnormal ECG When compared with ECG of 01-Feb-2021 11:47, No significant change Reconfirmed by Aureliano Sol ([id number]) on 02/04/2021 6:15:06 AM Referred By: REFERRED SELF Confirmed By:Aureliano Sol
[2021-02-04] MEDS: ENOXAPARIN INJ 40 MG/0.4 ML SYR SQ SCH (08:10)
[2021-02-04] MEDS: amLODIPine BESYLATE 5 MG TAB PO SCH (08:10)
[2021-02-04] MEDS: ASPIRIN 81 MG ECTAB PO SCH (08:10)
[2021-02-04] MEDS: ATORVASTATIN 40 MG TAB PO SCH (08:10)
[2021-02-04] MEDS: ISOSORBIDE MONO EXTENDED REL 60 MG TABCR PO SCH (08:11)
[2021-02-04] MEDS: LOSARTAN POTASSIUM 50 MG TAB PO SCH (08:11)
[2021-02-04] MEDS: QUEtiapine FUMARATE 25 MG TABLET PO SCH ×2 (08:11→17:59)
[2021-02-04] MEDS: METOPROLOL SUCC 25MG EXT REL TAB PO SCH (08:11)
[2021-02-04] MEDS: TAMSULOSIN HCL 0.4 MG CAP PO SCH (08:12)
[2021-02-04] MEDS: INSULIN ASPART PER UNIT SC SCH ×4 (08:15→20:37)
[2021-02-04 08:51] LABS: BUN Creatinine Ratio 31.6 (10-20); Calcium 8.8 mg/dl (8.5-10.1); Est GFR (African American) 54.1 ml/min; Est GFR (Non-African American) 46.7 ml/min; Potassium 3.3 mmol/L (3.5-5.1)
--- NOTE | 2021-02-04 11:43 | Hospitalist Progress Note ---
Date of Service February 04, 2021 Assessment & Plan (1) Major neurocognitive disorder due to Alzheimer's disease, with behavioral disturbance: Plan: Major neurocognitive disorder, due to Alzheimer's disease, with behavioral disturbance CT of the head, preliminary report unremarkable. Labs unremarkable except for mild troponin elevation. Evaluated by neurology and psychiatry service No benzodiazepines, narcotics, Benadryl Continue to utilize behavioral strategies for redirection Discussed with Psychiatrist today. Psych recs appreciated. Continue Seroquel 12.5 mg twice daily. QTc is 530s yesterday and today. Check EKG to monitor QTC Case management on board for placement Urinary retention Possible related to mediation side effect vs BPH Bautista cath was placed Urology recommendations appreciated Started on tamsulosin Not sure if patient is a good candidate to discharge home with Bautista due to increased agitation and confusion Discussed with RN to do voiding trial History of tachybrady syndrome Status post pacemaker. Paced rhythm on tele Mild elevation of troponin, possibly demand ischemia. Troponin went down from 0.3, to 0.2 EKG no acute ischemia Echocardiogram not able to obtain due to agitation Continue aspirin, statin and metoprolol History of severe aortic regurgitation. Euvolemic Recent Cardiology visit recommended nonsurgical medical management. Acute kidney injury and chronic kidney disease stage III Baseline creatinine 1.2, present on admission with creatinine 1.5. Got some IVF Cr is 1.41 today. Monitor Diabetes mellitus Most recent hemoglobin A1c 7.1 Continue to hold hold outpatient diabetic med On Lantus and NovoLog sliding scale Continue monitor BS History of coronary artery disease status post drug-eluting stents to LAD. Continue his home medications. Enlargement in aortic root. Follows with Cardiology and follow the echocardiogram. Hyperlipidemia: Continue statin. Hypertension: Continue his home medication of losartan, metoprolol, amlodipine and Imdur. History of anemia followed up with Hematology in 08/2018 and observation recommended. Hb stable History of thrombocytopenia Plt stable Deep venous thrombosis prophylaxis: on Lovenox. Admission and Anticipated Discharge Date Admission Date: January 24, 2021 Subjective 80-year-old male with past medical history significant for type 2 diabetes, aortic ectasia of the abdominal, aortic regurgitation, aortic root dilatation, history of benign neoplasm of colon, chronic kidney disease stage III, hypertension, history of dementia, history of thrombocytopenia, history of ST elevated [place], presents with agitation. Being managed for neurocognitive disorder due to Alzheimer's with behavioral disturbance, urinary retention. Patient seen and examined this morning. He is awake and alert oriented to person only Mental status limits full review of systems Denied any pain/discomfort Denied any chills, nausea, vomiting Physical Exam Constitutional: + well hydrated; no acute distress Eyes: PERRL, conjunctivae normal, anicteric sclerae ENMT: external ear and nose normal, oropharynx normal Respiratory: normal respiratory effort, lungs clear to auscultation Cardiovascular: Rate/Rhythm: regular rate and regular rhythm S1 S2 Gastrointestinal (Abdomen): normal bowel sounds, soft, nontender, no hepatosplenomegaly Musculoskeletal: No pedal edema Neurologic: PERRL, EOMI, accommodation nl, no face palsy, no dysarthria Genitourinary: Bautista in situ Results & Data Results & Data ([facility]) Vital Signs (Past 12 Hours) Vital Signs Temp Pulse Pulse Resp BP Pulse Ox 02/04/21 07:13 76 02/04/21 07:12 36.3 C L 62 20 155/60 H 96 02/03/21 23:57 75 Laboratory Results Abnormal lab results 02/03/21 02/04/21 02/04/21 Range/Units 19:42 07:29 07:47 Potassium 3.3 L D (3.5-5.1) mmol/L Chloride 111 H (98-107) mmol/L BUN 45 H (7-18) mg/dl Creatinine 1.41 H (0.6-1.4) mg/dl BUN/Creatinine Ratio 31.6 H (10-20) Glucose 122 H (70-99) mg/dl POC Glucose 194 H 124 H (70-99) mg/dl 02/04/21 02/04/21 Range/Units 11:21 16:21 Potassium (3.5-5.1) mmol/L Chloride (98-107) mmol/L BUN (7-18) mg/dl Creatinine (0.6-1.4) mg/dl BUN/Creatinine Ratio (10-20) Glucose (70-99) mg/dl POC Glucose 206 H 134 H (70-99) mg/dl
[2021-02-04] MEDS ORDERED: POTASSIUM CHLORIDE CRTAB 20 MEQ TABCR PO STA (13:13)
[2021-02-04] MEDS: SODIUM CHLORIDE 0.9% 500 ML IV SCH ×2 (19:07→23:47)
[2021-02-04] MEDS: INSULIN GLARGINE SOLOSTAR 100 UNITS/ML 3 ML PEN SC SCH (20:34)
--- NOTE | 2021-02-04 23:49 | Electrocardiogram Report ---
Test Reason : Blood Pressure : / mmHG Vent. Rate : 075 BPM Atrial Rate : 075 BPM P-R Int : 254 ms QRS Dur : 148 ms QT Int : 480 ms P-R-T Axes : 019 -36 016 degrees QTc Int : 536 ms Atrial-paced rhythm with prolonged AV conduction with frequent Premature ventricular complexes Occasional sinus complexes Left axis deviation Right bundle branch block Abnormal ECG When compared with ECG of 02-FEB-2021 08:29, QT has lengthened Confirmed by Aureliano Sol ([id number]) on 02/04/2021 11:48:43 PM Referred By: REFERRED SELF Confirmed By:Aureliano Sol
[2021-02-05] MEDS: LOSARTAN POTASSIUM 50 MG TAB PO SCH (08:00)
--- NOTE | 2021-02-05 08:15 | Electrocardiogram Report ---
Test Reason : Blood Pressure : / mmHG Vent. Rate : 080 BPM Atrial Rate : 086 BPM P-R Int : 000 ms QRS Dur : 134 ms QT Int : 468 ms P-R-T Axes : 000 -40 007 degrees QTc Int : 539 ms Poor data quality, interpretation may be adversely affected Atrial-paced rhythm Premature ventricular complexes Left axis deviation Right bundle branch block Abnormal ECG When compared with ECG of 03-FEB-2021 11:58, No significant change Confirmed by Aureliano Sol ([id number]) on 02/05/2021 8:14:57 AM Referred By: REFERRED SELF Confirmed By:Aureliano Sol
[2021-02-05] MEDS: ASPIRIN 81 MG ECTAB PO SCH (08:40)
[2021-02-05] MEDS: TAMSULOSIN HCL 0.4 MG CAP PO SCH (08:41)
[2021-02-05] MEDS: ATORVASTATIN 40 MG TAB PO SCH (08:42)
[2021-02-05] MEDS: ISOSORBIDE MONO EXTENDED REL 60 MG TABCR PO SCH (08:42)
[2021-02-05] MEDS: METOPROLOL SUCC 25MG EXT REL TAB PO SCH (08:42)
[2021-02-05] MEDS: QUEtiapine FUMARATE 25 MG TABLET PO SCH ×2 (08:42→18:07)
[2021-02-05] MEDS: ENOXAPARIN INJ 40 MG/0.4 ML SYR SQ SCH (08:43)
[2021-02-05] MEDS: amLODIPine BESYLATE 5 MG TAB PO SCH (08:43)
[2021-02-05] MEDS: INSULIN ASPART PER UNIT SC SCH ×4 (08:47→21:49)
--- NOTE | 2021-02-05 11:38 | Psychiatric Progress Note ---
Date of Service February 05, 2021 Impression / Recommendations Impression per Dr. Claire: 80 yo man with major neurocognitive disorder with behavioral disturbance with worsening agitation and confusion over the last week. This could represent worsening of his dementia versus superimposed delirium. Appropriate to started seroquel given level of aggression and agitation causing danger to himself and others though recommend using the lowest necessary dose given black box risk for increased all cause mortality in dementia and his elevated QTc. Risks/benefit profile continues to favor low dose antipsychotic use, even with QTc changes, given high level of aggression but QTc will need to be monitored closely. 02/05/21: intermittent agitation, typically around diaz/urinary retention but no IM medications needed ysterday or today so far. QTc yesterday remains elevated (539ms). Plan: continue to limit antipsychotics due to QTc and possible anticholinergic effects worsening underlying urinary retention. If QTc <500 would probably benefit from 12.5 mg Seroquel am and 25 mg po qpm. For now continue seroquel 12.5 mg BID. (1) Major neurocognitive disorder due to Alzheimer's disease, with behavioral disturbance: 02/05/21: continue seroquel 12.5 mg BID (reduced d/t urinary retention and elevated QTc). 01/29/21: continue with seroquel 25mg BID, Continue 1-on-1. 01/28/21: Continue with seroquel 25 mg BID, no EKG since 01/24/21 would repeat to get sense for QTc if he can tolerate it. Continue 1-on-1. May consider midday seroquel tomorrow if he needs another IM zyprexa today. 01/27/21: EKGs, Seroquel 25 mg BID 01/26/21: Daily EKGs, increase scheduled seroquel to 25 mg BID 01/25/21: Daily EKGs due to QTc prolongation, may want to consider cardiology input re: safety of ongoing use of QTc prolonging agents, continue with seroquel 12.5 mg BID, for behavioral emergency olanzpaine 2.5 mg IM x 1 (not to exceed 10mg per 24 hours). 01/24/21: -1-one-1 for now for behavioral redirection -Start seroquel 12.5 mg BID for agitation -For behavioral emergency could use olanzapine 2.5 mg IM x1 (up to max of 10mg per 24 hours). Evaluate QTc if multiple IM doses are needed in a day. -May require higher level of care given worsening agitation -Continue with medical workup to rule out causes for reversible delirium adding to agitation and confusion -Continue with delirium prevention with frequent re-orientation, attempting to open blinds during the day, having pictures/phone calls or visits from family, can use melatonin 3mg qhs if sleep is disrupted -Discussed with Dr. Joaquin Interval History Identifying Information 80 yo man with major neurocognitive disorder and multiple medical comorbidities was admitted medically after increased behaviors of agitation at home. Psychiatry was consulted for medication management of agitated confusion. Chief Complaint sleeping Review of Systems Notes Unable to assess as he was asleep Subjective Subjective Patient was seen & assessed and interval progress reviewed. No IM meds needed overnight. QTc remains elevated. Walked in [place] this morning and behaviorally ap propriate and resting comfortably asleep when I assessed him. Physical Exam Psychiatric sleeping, appeared comfortable. Vital Signs (Past 24 Hours) Last Vital Signs Temp 36.1 C L 02/05/21 03:14 Pulse 65 02/05/21 03:14 Resp 18 02/05/21 03:14 BP 143/57 H 02/05/21 03:14 Pulse Ox 94 02/05/21 03:14 Results & Data ([facility]) Laboratory Results Laboratory Results - last 24 hr 02/04/21 02/04/21 02/05/21 16:21 20:05 11:15 POC Glucose 134 H 263 H 173 H Current Inpatient Medications Current Inpatient Medications: Current Inpatient Medications Acetaminophen (Acetaminophen 325 Mg Tab) 650 mg PO Q4H PRN PRN Reason: Pain or Fever Stop: 02/23/21 07:58 Last Admin: 01/26/21 07:42 Dose: 650 mg Documented by: Amlodipine Besylate (Amlodipine Besylate 5 Mg Tab) 5 mg PO DAILY [facility] Stop: 02/25/21 09:14 Last Admin: 02/05/21 08:43 Dose: 5 mg Documented by: Aspirin (Aspirin 81 Mg Ectab) 81 mg PO DAILY [facility] Stop: 02/25/21 09:14 Last Admin: 02/05/21 08:40 Dose: 81 mg Documented by: Atorvastatin Calcium (Atorvastatin 40 Mg Tab) 80 mg PO DAILY [facility] Stop: 02/25/21 09:14 Last Admin: 02/05/21 08:42 Dose: 80 mg Documented by: Dextrose (Dextrose 50% 50 Ml Syringe) 25 - 50 ml IV UD PRN; Protocol PRN Reason: Hypoglycemia Protocol Stop: 02/23/21 15:29 Enoxaparin Sodium (Enoxaparin Inj 40 Mg/0.4 Ml Syr) 40 mg SQ Q24H [facility] Stop: 02/23/21 08:59 Last Admin: 02/05/21 08:43 Dose: 40 mg Documented by: Glucagon (Glucagon For Inj 1 Mg Vial) 1 mg IM UD PRN; Protocol PRN Reason: Hypoglycemia Protocol Stop: 02/23/21 15:29 Glucose (Glucose 40% Gel 15 Gm Tube) 15 - 30 gm PO UD PRN; Protocol PRN Reason: Hypoglycemia Protocol Stop: 02/23/21 15:29 Glucose (Glucose 10 Tabs/Tube) 4 - 8 tabs PO UD PRN; Protocol PRN Reason: Hypoglycemia Protocol Stop: 02/23/21 15:29 Hydralazine HCl (Hydralazine Hcl 20 Mg/Ml Vial) 5 mg IV Q6H PRN PRN Reason: systolic bp > 160 Stop: 02/24/21 09:59 Last Admin: 01/26/21 07:37 Dose: 5 mg Documented by: Hydrochlorothiazide (Hydrochlorothiazide 25 Mg Tab) 12.5 mg PO DAILY [facility] Stop: 02/26/21 08:59 Last Admin: 01/28/21 08:39 Dose: 12.5 mg Documented by: Insulin Aspart (Insulin Aspart Per Unit) 0 units SC ACHS [facility] Stop: 02/27/21 07:29 Last Admin: 02/05/21 08:47 Dose: 6 units Documented by: Insulin Glargine (Insulin Glargine Solostar 100 Units/Ml 3 Ml Pen) 10 units SC HS [facility] Stop: 02/27/21 20:59 Last Admin: 02/04/21 20:34 Dose: 10 units Documented by: Isosorbide Mononitrate (Isosorbide [place] Extended Rel 60 Mg Tabcr) 60 mg PO QAM [facility] Stop: 02/25/21 09:14 Last Admin: 02/05/21 08:42 Dose: 60 mg Documented by: Losartan Potassium (Losartan Potassium 50 Mg Tab) 100 mg PO DAILY [facility] Stop: 02/25/21 09:14 Last Admin: 02/05/21 08:00 Dose: 100 mg Documented by: Metoprolol Succinate (Metoprolol Succ 25mg Ext Rel Tab) 25 mg PO DAILY [facility] Stop: 02/25/21 09:14 Last Admin: 02/05/21 08:42 Dose: 25 mg Documented by: Miscellaneous (Carbohydrates For Hypoglycemia ) 15 - 30 gm PO UD PRN PRN Reason: Hypoglycemia Treatment Stop: 02/23/21 15:29 Nitroglycerin (Nitroglycerin Sl 0.4 Mg/Tab Tab) 0.4 mg SL UD PRN PRN Reason: Chest Pain Stop: 02/23/21 07:58 Quetiapine Fumarate (Quetiapine Fumarate 25 Mg Tablet) 12.5 mg PO BID@0900,1900 [facility] Stop: 03/04/21 18:59 Last Admin: 02/05/21 08:42 Dose: 12.5 mg Documented by: Tamsulosin HCl (Tamsulosin Hcl 0.4 Mg Cap) 0.4 mg PO QAM [facility] Stop: 03/06/21 08:59 Last Admin: 02/05/21 08:41 Dose: 0.4 mg Documented by:
--- NOTE | 2021-02-05 14:54 | Hospitalist Progress Note ---
Date of Service February 05, 2021 Assessment & Plan (1) Major neurocognitive disorder due to Alzheimer's disease, with behavioral disturbance: Plan: Major neurocognitive disorder, due to Alzheimer's disease, with behavioral disturbance CT of the head, preliminary report unremarkable. Labs unremarkable except for mild troponin elevation. Evaluated by neurology and psychiatry service No benzodiazepines, narcotics, Benadryl Continue to utilize behavioral strategies for redirection Discussed with Psychiatrist today. Psych recs appreciated. Continue Seroquel 12.5 mg twice daily. QTc improved today to 468 Urinary retention Possible related to mediation side effect vs BPH Diaz cath was placed Urology recommendations appreciated Started on tamsulosin Voiding trial done over the past 24h was unsuccessful Last bladder scan >500cc. Discussed with RN to reinsert diaz Patient will need to follow up with urology outpatient History of tachybrady syndrome Status post pacemaker. Paced rhythm on tele Mild elevation of troponin, possibly demand ischemia. Troponin went down from 0.3, to 0.2 EKG no acute ischemia Echocardiogram not able to obtain due to agitation Continue aspirin, statin and metoprolol History of severe aortic regurgitation. Euvolemic Recent Cardiology visit recommended nonsurgical medical management. Acute kidney injury and chronic kidney disease stage III Baseline creatinine 1.2, present on admission with creatinine 1.5. Got some IVF Cr is 1.41 yesterday. Monitor Diabetes mellitus Most recent hemoglobin A1c 7.1 Continue to hold hold outpatient diabetic med On Lantus and NovoLog sliding scale Continue monitor BS History of coronary artery disease status post drug-eluting stents to LAD. Continue his home medications. Enlargement in aortic root. Follows with Cardiology and follow the echocardiogram. Hyperlipidemia: Continue statin. Hypertension: Continue his home medication of losartan, metoprolol, amlodipine and Imdur. History of anemia followed up with Hematology in 08/2018 and observation recommended. Hb stable History of thrombocytopenia Plt stable Deep venous thrombosis prophylaxis: on Lovenox. Calls to today were unanswered Admission and Anticipated Discharge Date Admission Date: January 24, 2021 Subjective 80-year-old male with past medical history significant for type 2 diabetes, aortic ectasia of the abdominal, aortic regurgitation, aortic root dilatation, history of benign neoplasm of colon, chronic kidney disease stage III, hypertension, history of dementia, history of thrombocytopenia, history of ST elevated [place], presents with agitation. Being managed for neurocognitive disorder due to Alzheimer's with behavioral disturbance, urinary retention. Patient seen and examined He is awake and alert oriented to person only Voiding trial was started yesterday without success at this time. Had to be straight cath overnight Mental status limits full review of systems Denied any pain/discomfort Denied any chills, nausea, vomiting Physical Exam Constitutional: + well hydrated; no acute distress Eyes: PERRL, conjunctivae normal, anicteric sclerae ENMT: external ear and nose normal, oropharynx normal Respiratory: normal respiratory effort, lungs clear to auscultation Cardiovascular: Rate/Rhythm: regular rate and regular rhythm S1 S2 Gastrointestinal (Abdomen): normal bowel sounds, soft, nontender, no hepatosplenomegaly Neurologic: PERRL, EOMI, accommodation nl, no face palsy, no dysarthria Results & Data Results & Data ([facility]) Vital Signs (Past 12 Hours) Vital Signs Temp Pulse Resp BP Pulse Ox 02/05/21 03:14 36.1 C L 65 18 143/57 H 94
[2021-02-05] MEDS: INSULIN GLARGINE SOLOSTAR 100 UNITS/ML 3 ML PEN SC SCH (21:52)
[2021-02-06 06:47] LABS: BUN Creatinine Ratio 29.7 (10-20); Calcium 8.8 mg/dl (8.5-10.1); Creatinine Clr Calc Pharmacy 39.2 ml/min; Est GFR (African American) 59.7 ml/min; Est GFR (Non-African American) 51.5 ml/min; Magnesium 1.5 mg/dl (1.8-2.4); Phosphorus 2.7 mg/dl (2.5-4.9); Potassium 3.8 mmol/L (3.5-5.1)
[2021-02-06] MEDS ORDERED: MAGNESIUM SULFATE / D5W 1 GM/100 ML BAG IV ONE (08:10)
[2021-02-06] MEDS: INSULIN ASPART PER UNIT SC SCH ×4 (08:57→21:28)
[2021-02-06] MEDS: TAMSULOSIN HCL 0.4 MG CAP PO SCH (09:12)
[2021-02-06] MEDS: ATORVASTATIN 40 MG TAB PO SCH (09:12)
[2021-02-06] MEDS: LOSARTAN POTASSIUM 50 MG TAB PO SCH (09:12)
[2021-02-06] MEDS: ISOSORBIDE MONO EXTENDED REL 60 MG TABCR PO SCH ×2 (09:12→09:24)
[2021-02-06] MEDS: ASPIRIN 81 MG ECTAB PO SCH (09:13)
[2021-02-06] MEDS: QUEtiapine FUMARATE 25 MG TABLET PO SCH ×2 (09:13→18:00)
[2021-02-06] MEDS: ENOXAPARIN INJ 40 MG/0.4 ML SYR SQ SCH (09:13)
[2021-02-06] MEDS: METOPROLOL SUCC 25MG EXT REL TAB PO SCH (09:13)
[2021-02-06] MEDS: amLODIPine BESYLATE 5 MG TAB PO SCH (09:13)
--- NOTE | 2021-02-06 10:20 | Hospitalist Progress Note ---
Date of Service February 06, 2021 Assessment & Plan (1) Major neurocognitive disorder due to Alzheimer's disease, with behavioral disturbance: Plan: Major neurocognitive disorder, due to Alzheimer's disease, with behavioral disturbance CT of the head, preliminary report unremarkable. Labs unremarkable except for mild troponin elevation. Evaluated by neurology and psychiatry service No benzodiazepines, narcotics, Benadryl Continue to utilize behavioral strategies for redirection Psych recs appreciated. Continue Seroquel 12.5 mg twice daily. QTc 502 Urinary retention Possible related to mediation side effect vs BPH Urology recommendations appreciated Started on tamsulosin Failed voiding trial. Diaz reinsterted Patient will need to follow up with urology outpatient History of tachybrady syndrome Status post pacemaker. Mild elevation of troponin, possibly demand ischemia. Troponin went down from 0.3, to 0.2 EKG no acute ischemia Echocardiogram not able to obtain due to agitation Continue aspirin, statin and metoprolol History of severe aortic regurgitation. Euvolemic Recent Cardiology visit recommended nonsurgical medical management. Acute kidney injury and chronic kidney disease stage III Baseline creatinine 1.2, present on admission with creatinine 1.5. Got some IVF Cr is 1.3 Hypomagnesemic today. Replete Diabetes mellitus Most recent hemoglobin A1c 7.1 Continue to hold hold outpatient diabetic med On Lantus and NovoLog sliding scale Continue monitor BS History of coronary artery disease status post drug-eluting stents to LAD. Continue his home medications. Enlargement in aortic root. Follows with Cardiology and follow the echocardiogram. Hyperlipidemia: Continue statin. Hypertension: Continue his home medication of losartan, metoprolol, amlodipine and Imdur. History of anemia followed up with Hematology in 08/2018 and observation recommended. Hb stable History of thrombocytopenia Deep venous thrombosis prophylaxis: on Lovenox. Called and updated her Discussed discharge options. She would prefer discharge home with home health services and aids. She wanted to discuss with case management specialist about that. data processing manager notified. We will plan to discharge patient home on the day that home health service can visit patient at home to help set up as per her request as she would want cert ain things set up before he gets home Admission and Anticipated Discharge Date Admission Date: January 24, 2021 Subjective 80-year-old male with past medical history significant for type 2 diabetes, aortic ectasia of the abdominal, aortic regurgitation, aortic root dilatation, history of benign neoplasm of colon, chronic kidney disease stage III, hypertension, history of dementia, history of thrombocytopenia, history of ST elevated [place], presents with agitation. Being managed for neurocognitive disorder due to Alzheimer's with behavioral disturbance, urinary retention. Patient seen and examined He refused to answer any questions today Failed voiding trial yesterday and diaz reinserted Physical Exam Constitutional: + well hydrated; no acute distress Eyes: PERRL, conjunctivae normal, anicteric sclerae ENMT: external ear and nose normal, oropharynx normal Respiratory: normal respiratory effort, lungs clear to auscultation Cardiovascular: Rate/Rhythm: regular rate and regular rhythm S1 S2 Gastrointestinal (Abdomen): normal bowel sounds, soft, nontender, no hepatosplenomegaly Neurologic: PERRL, EOMI, accommodation nl, no face palsy, no dysarthria Results & Data Results & Data ([facility]) Vital Signs (Past 12 Hours) Vital Signs Temp Pulse Pulse Resp BP Pulse Ox 02/06/21 03:27 81 02/06/21 02:58 36.5 C 78 18 134/66 96 02/05/21 22:48 36.3 C L 61 18 131/65 96 Laboratory Results Abnormal lab results 02/05/21 02/05/21 02/05/21 Range/Units 11:15 17:18 21:02 Chloride (98-107) mmol/L BUN (7-18) mg/dl BUN/Creatinine Ratio (10-20) Glucose (70-99) mg/dl POC Glucose 173 H 153 H 226 H (70-99) mg/dl Magnesium (1.8-2.4) mg/dl 02/06/21 02/06/21 Range/Units 05:38 07:51 Chloride 113 H (98-107) mmol/L BUN 39 H (7-18) mg/dl BUN/Creatinine Ratio 29.7 H (10-20) Glucose 133 H (70-99) mg/dl POC Glucose 112 H (70-99) mg/dl Magnesium 1.5 L (1.8-2.4) mg/dl
--- NOTE | 2021-02-06 10:31 | Electrocardiogram Report ---
Test Reason : Blood Pressure : / mmHG Vent. Rate : 070 BPM Atrial Rate : 073 BPM P-R Int : 000 ms QRS Dur : 146 ms QT Int : 434 ms P-R-T Axes : 000 -36 031 degrees QTc Int : 468 ms Electronic atrial pacemaker Left axis deviation Right bundle branch block Abnormal ECG When compared with ECG of 04-FEB-2021 07:15, QT has shortened Confirmed by Yosi Elaine ([id number]) on 02/06/2021 10:30:46 AM Referred By: REFERRED SELF Confirmed By:Yosi Elaine
--- NOTE | 2021-02-06 10:44 | Electrocardiogram Report ---
Test Reason : Blood Pressure : / mmHG Vent. Rate : 083 BPM Atrial Rate : 059 BPM P-R Int : 000 ms QRS Dur : 148 ms QT Int : 428 ms P-R-T Axes : 000 215 157 degrees QTc Int : 502 ms Suspect arm lead reversal, interpretation assumes no reversal Electronic atrial pacemaker Right bundle branch block Lateral infarct , age undetermined Abnormal ECG When compared with ECG of 05-FEB-2021 13:54, (unconfirmed) Lateral infarct is now Present Confirmed by Yosi Elaine ([id number]) on 02/06/2021 10:44:25 AM Referred By: REFERRED SELF Confirmed By:Yosi Elaine
[2021-02-06] MEDS: INSULIN GLARGINE SOLOSTAR 100 UNITS/ML 3 ML PEN SC SCH (21:28)
[2021-02-07] MEDS: ACETAMINOPHEN 325 MG TAB PO PRN (00:09)
[2021-02-07] MEDS ORDERED: MELATONIN 3 MG TAB PO PRN (00:20)
[2021-02-07] MEDS: INSULIN ASPART PER UNIT SC SCH ×4 (08:47→21:24)
[2021-02-07] MEDS: amLODIPine BESYLATE 5 MG TAB PO SCH (09:43)
[2021-02-07] MEDS: LOSARTAN POTASSIUM 50 MG TAB PO SCH (09:43)
[2021-02-07] MEDS: ENOXAPARIN INJ 40 MG/0.4 ML SYR SQ SCH (09:43)
[2021-02-07] MEDS: ATORVASTATIN 40 MG TAB PO SCH (09:43)
[2021-02-07] MEDS: ASPIRIN 81 MG ECTAB PO SCH (09:43)
[2021-02-07] MEDS: TAMSULOSIN HCL 0.4 MG CAP PO SCH (09:43)
[2021-02-07] MEDS: QUEtiapine FUMARATE 25 MG TABLET PO SCH ×2 (09:44→18:34)
[2021-02-07] MEDS: ISOSORBIDE MONO EXTENDED REL 60 MG TABCR PO SCH (09:44)
[2021-02-07] MEDS: METOPROLOL SUCC 25MG EXT REL TAB PO SCH (09:44)
--- NOTE | 2021-02-07 10:42 | Hospitalist Progress Note ---
Date of Service February 07, 2021 Assessment & Plan (1) Major neurocognitive disorder due to Alzheimer's disease, with behavioral disturbance: Plan: Major neurocognitive disorder, due to Alzheimer's disease, with behavioral disturbance CT of the head, preliminary report unremarkable. Labs unremarkable except for mild troponin elevation. Evaluated by neurology and psychiatry service No benzodiazepines, narcotics, Benadryl Continue to utilize behavioral strategies for redirection Psych recs appreciated. Continue Seroquel 12.5 mg twice daily. QTc 462 today Urinary retention Possible related to mediation side effect vs BPH Urology recommendations appreciated Started on tamsulosin Failed voiding trial. Bautista reinsterted Patient will need to follow up with urology outpatient History of tachybrady syndrome Status post pacemaker. Mild elevation of troponin, possibly demand ischemia. Troponin went down from 0.3, to 0.2 EKG no acute ischemia Echocardiogram not able to obtain due to agitation Continue aspirin, statin and metoprolol History of severe aortic regurgitation. Euvolemic Recent Cardiology visit recommended nonsurgical medical management. Acute kidney injury and chronic kidney disease stage III Baseline creatinine 1.2, present on admission with creatinine 1.5. Got some IVF Last Cr is 1.3 Hypomagnesemic today. Replete Diabetes mellitus Most recent hemoglobin A1c 7.1 Continue to hold hold outpatient diabetic med On Lantus and NovoLog sliding scale Continue monitor BS History of coronary artery disease status post drug-eluting stents to LAD. Continue his home medications. Enlargement in aortic root. Follows with Cardiology and follow the echocardiogram. Hyperlipidemia: Continue statin. Hypertension: Continue his home medication of losartan, metoprolol, amlodipine and Imdur. History of anemia followed up with Hematology in 08/2018 and observation recommended. Hb stable History of thrombocytopenia Deep venous thrombosis prophylaxis: on Lovenox. Possible dc home with tomorrow Admission and Anticipated Discharge Date Admission Date: January 24, 2021 Subjective 80-year-old male with past medical history significant for type 2 diabetes, aortic ectasia of the abdominal, aortic regurgitation, aortic root dilatation, history of benign neoplasm of colon, chronic kidney disease stage III, hypertension, history of dementia, history of thrombocytopenia, history of ST elevated [place], presents with agitation. Being managed for neurocognitive disorder due to Alzheimer's with behavioral disturbance, urinary retention. Patient seen and examined Patient is awake and alert oriented to person only. Denies any chest pain, cough, shortness of breath Denies any abdominal pain, nausea, vomiting and diarrhea Failed voiding trial 2 days ago and had Bautista since. Physical Exam Constitutional: + well hydrated; no acute distress Eyes: PERRL, conjunctivae normal, anicteric sclerae ENMT: external ear and nose normal, oropharynx normal Respiratory: normal respiratory effort, lungs clear to auscultation Cardiovascular: Rate/Rhythm: regular rate and regular rhythm S1 S2 Gastrointestinal (Abdomen): normal bowel sounds, soft, nontender, no hepatosplenomegaly Musculoskeletal: No pedal edema Neurologic: PERRL, EOMI, accommodation nl, no face palsy, no dysarthria Psychiatric: Alert and oriented to person only Genitourinary: Bautista in situ Results & Data Results & Data ([facility]) Vital Signs (Past 12 Hours) Vital Signs Temp Pulse Pulse Resp BP Pulse Ox 02/07/21 05:44 35.7 C L 60 18 135/57 L 97 02/07/21 00:00 77 02/06/21 23:01 36.8 C 64 16 135/76 95 Laboratory Results Abnormal lab results 02/06/21 02/06/21 02/06/21 Range/Units 11:12 16:42 21:00 POC Glucose 208 H 191 H 120 H (70-99) mg/dl 02/07/21 Range/Units 07:28 POC Glucose 134 H (70-99) mg/dl
--- NOTE | 2021-02-07 11:58 | Electrocardiogram Report ---
Test Reason : Blood Pressure : / mmHG Vent. Rate : 067 BPM Atrial Rate : 067 BPM P-R Int : 290 ms QRS Dur : 148 ms QT Int : 438 ms P-R-T Axes : 020 -25 008 degrees QTc Int : 462 ms Atrial-paced rhythm with prolonged AV conduction with occasional Premature ventricular complexes and Premature atrial complexes Right bundle branch block Septal infarct , age undetermined Abnormal ECG When compared with ECG of 06-FEB-2021 06:20, Premature ventricular complexes are now Present Premature atrial complexes are now Present Criteria for Lateral infarct are no longer Present Confirmed by Yosi Elaine ([id number]) on 02/07/2021 11:57:57 AM Referred By: REFERRED SELF Confirmed By:Yosi Elaine
[2021-02-07] MEDS: INSULIN GLARGINE SOLOSTAR 100 UNITS/ML 3 ML PEN SC SCH (21:24)
[2021-02-08 08:48] LABS: BUN Creatinine Ratio 22.8 (10-20); Calcium 9.2 mg/dl (8.5-10.1); Creatinine Clr Calc Pharmacy 43.7 ml/min; Est GFR (African American) 67.8 ml/min; Est GFR (Non-African American) 58.5 ml/min; Potassium 3.9 mmol/L (3.5-5.1)
[2021-02-08] MEDS: LOSARTAN POTASSIUM 50 MG TAB PO SCH (09:24)
[2021-02-08] MEDS: amLODIPine BESYLATE 5 MG TAB PO SCH (09:24)
[2021-02-08] MEDS: ATORVASTATIN 40 MG TAB PO SCH (09:24)
[2021-02-08] MEDS: METOPROLOL SUCC 25MG EXT REL TAB PO SCH (09:24)
[2021-02-08] MEDS: QUEtiapine FUMARATE 25 MG TABLET PO SCH ×2 (09:24→18:22)
[2021-02-08] MEDS: TAMSULOSIN HCL 0.4 MG CAP PO SCH (09:24)
[2021-02-08] MEDS: ISOSORBIDE MONO EXTENDED REL 60 MG TABCR PO SCH (09:25)
[2021-02-08] MEDS: ENOXAPARIN INJ 40 MG/0.4 ML SYR SQ SCH (09:25)
[2021-02-08] MEDS: ASPIRIN 81 MG ECTAB PO SCH (09:25)
[2021-02-08] MEDS: INSULIN ASPART PER UNIT SC SCH ×4 (09:32→20:44)
--- NOTE | 2021-02-08 13:52 | Electrocardiogram Report ---
Test Reason : Blood Pressure : / mmHG Vent. Rate : 068 BPM Atrial Rate : 068 BPM P-R Int : 266 ms QRS Dur : 146 ms QT Int : 430 ms P-R-T Axes : 000 -32 021 degrees QTc Int : 457 ms Atrial-paced rhythm with prolonged AV conduction with occasional Premature ventricular complexes Left axis deviation Right bundle branch block Abnormal ECG When compared with ECG of 07-FEB-2021 05:52, Premature atrial complexes are no longer Present Confirmed by Rob Guevara ([id number]) on 02/08/2021 1:52:00 PM Referred By: REFERRED SELF Confirmed By:Can Guevara
--- NOTE | 2021-02-08 15:27 | Hospitalist Progress Note ---
Date of Service February 08, 2021 Assessment & Plan (1) Major neurocognitive disorder due to Alzheimer's disease, with behavioral disturbance: Plan: Major neurocognitive disorder, due to Alzheimer's disease, with behavioral disturbance CT of the head, preliminary report unremarkable. Labs unremarkable except for mild troponin elevation. Evaluated by neurology and psychiatry service No benzodiazepines, narcotics, Benadryl Continue to utilize behavioral strategies for redirection Psych recs appreciated. Continue Seroquel 12.5 mg twice daily. QTc 462 today Urinary retention Possible related to mediation side effect vs BPH Urology recommendations appreciated Started on tamsulosin Failed voiding trial. Bautista reinsterted Patient will need to follow up with urology outpatient History of tachybrady syndrome Status post pacemaker. Mild elevation of troponin, possibly demand ischemia. Troponin went down from 0.3, to 0.2 EKG no acute ischemia Echocardiogram not able to obtain due to agitation Continue aspirin, statin and metoprolol History of severe aortic regurgitation. Euvolemic Recent Cardiology visit recommended nonsurgical medical management. Acute kidney injury and chronic kidney disease stage III Baseline creatinine 1.2, present on admission with creatinine 1.5. Got some IVF Last Cr is 1.17 Diabetes mellitus Most recent hemoglobin A1c 7.1 Continue to hold hold outpatient diabetic med On Lantus and NovoLog sliding scale Continue monitor BS History of coronary artery disease status post drug-eluting stents to LAD. Continue his home medications. Enlargement in aortic root. Follows with Cardiology and follow the echocardiogram. Hyperlipidemia: Continue statin. Hypertension: Continue his home medication of losartan, metoprolol, amlodipine and Imdur. History of anemia followed up with Hematology in 08/2018 and observation recommended. Hb stable History of thrombocytopenia Deep venous thrombosis prophylaxis: on Lovenox. CM discussed with .She will be able to have patient home tomorrow Will dc tomorrow Dc tele Admission and Anticipated Discharge Date Admission Date: January 24, 2021 Physical Exam Constitutional: + well hydrated; no acute distress Eyes: PERRL, conjunctivae normal, anicteric sclerae ENMT: external ear and nose normal, oropharynx normal Respiratory: normal respiratory effort, lungs clear to auscultation Cardiovascular: Rate/Rhythm: regular rate and regular rhythm Gastrointestinal (Abdomen): normal bowel sounds, soft, nontender, no hepatosplenomegaly Neurologic: PERRL, EOMI, accommodation nl, no face palsy, no dysarthria Results & Data Results & Data ([facility]) Vital Signs (Past 12 Hours) Vital Signs Temp Pulse Pulse Pulse Resp BP Pulse Ox 02/08/21 14:54 36.5 C 55 L 18 148/58 H 96 02/08/21 10:42 94 H 02/08/21 07:11 36.7 C 54 L 18 164/64 H 95 02/08/21 05:00 68 02/08/21 03:22 36.7 C 65 18 153/58 H 96
[2021-02-08] MEDS: INSULIN GLARGINE SOLOSTAR 100 UNITS/ML 3 ML PEN SC SCH (20:45)
[2021-02-09] MEDS: INSULIN ASPART PER UNIT SC SCH ×3 (09:14→17:56)
[2021-02-09] MEDS: ENOXAPARIN INJ 40 MG/0.4 ML SYR SQ SCH (11:32)
[2021-02-09] MEDS: hydroCHLOROthiazide 25 MG TAB PO SCH (11:33)
[2021-02-09] MEDS: QUEtiapine FUMARATE 25 MG TABLET PO SCH (11:33)
[2021-02-09] MEDS: amLODIPine BESYLATE 5 MG TAB PO SCH (11:34)
[2021-02-09] MEDS: TAMSULOSIN HCL 0.4 MG CAP PO SCH (11:34)
[2021-02-09] MEDS: ASPIRIN 81 MG ECTAB PO SCH (11:34)
[2021-02-09] MEDS: ISOSORBIDE MONO EXTENDED REL 60 MG TABCR PO SCH (11:34)
[2021-02-09] MEDS: METOPROLOL SUCC 25MG EXT REL TAB PO SCH (11:37)
[2021-02-09] MEDS: ATORVASTATIN 40 MG TAB PO SCH (11:39)
[2021-02-09] MEDS: LOSARTAN POTASSIUM 50 MG TAB PO SCH (11:43)
[2021-02-09 12:01] LABS: Hematocrit (blood only) 38.3 % (42-52); Hemoglobin 13.1 g/dL (14.0-18.0); Mean Corpuscular Hemoglobin 32.8 pg (25-34); Mean Corpuscular Volume 95.8 fL (80-100); Platelet Count 196 K/uL (130-400); RDW Coefficient of Variation 13.1 % (11.5-14.5); RDW Standard Deviation 45.6 fL (36.4-46.3); White Blood Count 7.43 K/uL (4.8-10.8)
[2021-02-09 12:17] LABS: Mean Corpuscular Hgb Conc 34.2 g/dL (32-36)
[2021-02-09 12:21] LABS: BUN Creatinine Ratio 21.4 (10-20); Calcium 9.3 mg/dl (8.5-10.1); Creatinine Clr Calc Pharmacy 45.6 ml/min; Est GFR (African American) 73.9 ml/min; Est GFR (Non-African American) 63.8 ml/min; Magnesium 1.7 mg/dl (1.8-2.4); Potassium 4.2 mmol/L (3.5-5.1)
--- NOTE | 2021-02-09 14:26 | Discharge Summary ---
Date of Service February 09, 2021 Admission HPI Per Admitting Provider An 80-year-old male with past medical history significant for type 2 diabetes, aortic ectasia of the abdominal, aortic regurgitation, aortic root dilatation, history of benign neoplasm of colon, chronic kidney disease stage III, hypertension, history of dementia, history of thrombocytopenia, history of ST elevated [place], presents with agitation. The patient lives with his . states the patient is getting more confused and agitated at home for the last 1 week. Saw family doctor, has prescribed Seroquel. He just got one dose last night and was getting more agitated and she called the dial marker last night. The patient was combative with the dial marker, unable to calm him, dial marker brought him here. Labs are okay except for some slight elevation of troponin. The patient is currently resting comfortably, hemodynamically stable. is in the room. gives most of the history. There was no fever or chills. No cough, no nausea, no vomiting, no complaints of any pain, no diarrhea or constipation. He walks without support, but gait is somewhat unsteady. His appetite is down for the last 1 week. The patient is somewhat sleepy, but he is talking okay, says he is doing okay and he is hallucinating, he is seeing some bugs and people in the room, but he seems calmer. Admission Exam Per Admitting Provider VITAL SIGNS: Temperature 36.5, pulse 74, respiratory rate 18, blood pressure 116/40, oxygen 95% on room air. HEENT: Pupils equal, round and reactive to light. Oral mucosa moist. Atraumatic. NECK: No neck masses seen. CARDIOVASCULAR: S1 and S2 heard. Regular rate and rhythm. No murmur, no gallop. RESPIRATORY SYSTEM: Normal AP diameter. No accessory muscle use. No wheezing, no crackles. ABDOMEN: Soft, bowel sounds present, nontender, no distention. CENTRAL NERVOUS SYSTEM: Sleepy, but oriented to name and place. Obeys simple commands. No facial droop. Speech is clear. Moves extremities. EXTREMITIES: No edema, no erythema. Principal Diagnosis Major neurocognitive disorder with behavioral disturbance Urinary retention Discharge Exam Constitutional + well hydrated; no acute distress Eyes PERRL, conjunctivae normal, anicteric sclerae ENMT external ear and nose normal, oropharynx normal Respiratory normal respiratory effort, lungs clear to auscultation Cardiovascular Rate/Rhythm: regular rate and regular rhythm S1 S2 Gastrointestinal (Abdomen) normal bowel sounds, soft, nontender, no hepatosplenomegaly Musculoskeletal no cyanosis or clubbing, extremities motor strength 5/5 Neurologic PERRL, EOMI, accommodation nl, no face palsy, no dysarthria Alert and oriented to person only Occasionally follows commands. Genitourinary Bautista in situ Discharge Data Allergies Allergy/AdvReac Type Severity Reaction Status Date / Time Penicillins Allergy Intermediate TOES Unverified 01/24/21 14:46 SWELL/ITCHY Consultations 01/24/21 08:00 Consult Neurology Routine Consult Psychiatry Routine 02/03/21 07:00 Consult Urology Routine Ordered Studies 01/24/21 03:45 CT head/brain wo con Urgent Hospital Course (1) Major neurocognitive disorder due to Alzheimer's disease, with behavioral disturbance: Major neurocognitive disorder, due to Alzheimer's disease, with behavioral disturbance CT of the head report unremarkable. Labs on admission was unremarkable except for mild troponin elevation. Evaluated by neurology and psychiatry service No benzodiazepines, narcotics, Benadryl Continue to utilize behavioral strategies for redirection Psych recs appreciated. Managed with seroquel. Had QTc prolongation which improved. QTc today is 469 Discharged on seroquel 12.5mg bid Urinary retention Possible related to mediation side effect vs BPH Was seen by Urology Started on tamsulosin Failed voiding trial. Bautista reinsterted Patient will need to follow up with urology outpatient History of tachybrady syndrome Status post pacemaker. Mild elevation of troponin, possibly demand ischemia. Troponin went down from 0.3, to 0.2 EKG no acute ischemia Echocardiogram not able to obtain due to agitation Continue aspirin, statin and metoprolol History of severe aortic regurgitation. Euvolemic Recent Cardiology visit recommended nonsurgical medical management. Acute kidney injury and chronic kidney disease stage III Baseline creatinine 1.2, present on admission with creatinine 1.5. Got some IVF Last Cr is 1.09 Diabetes mellitus Most recent hemoglobin A1c 7.1 Continue home antidiabetics History of coronary artery disease status post drug-eluting stents to LAD. Continue his home medications. Enlargement in aortic root. Follows with Cardiology and follow the echocardiogram. Hyperlipidemia: Continue statin. Hypertension: Continue his home medication of losartan, metoprolol, amlodipine and Imdur. History of anemia followed up with Hematology in 08/2018 and observation recommended. Hb stable 13.1 today History of thrombocytopenia Total Time Total Time Spent Total Time Spent (In Minutes): 35 Total Time Includes: Examination of the Patient, Discharge Planning, Medication Reconciliation and Other Discharge Plan Discharge Items Patient Disposition: Home - Home Health Services Reason For Visit: AGITATION, AMS Discharge Diagnosis: Major neurocognitive disorder with behavioral disturbance Urinary retention Activity: Resume your previous activity Non-emergency contact: Primary Care Provider Call non-emergency contact if: you have any medication questions Follow-up/Referrals: [facility] [Other] (The [facility] office will call you with an appointment. [phone] [place] [address]) Reilly Rene MD [Primary Care Provider] - (Date & Time 02/16/2021 2:20 PM Provider Domonique Azul Department [facility] ) Diet: Carb Consistent or DM2 and Heart Healthy Addtl Attending Provider Instructions: Mr Day You were brought to the hospital for increased agitation. You were also found to have urinary retention and required a Bautista catheter. You are being discharged home with home health services. Please follow-up with urology outpatient for voiding trial and management of Bautista. It was a pleasure taking care of you Pending Studies at Discharge: No Stand-Alone Forms: [facility], Smoking Cessation Medications and DC Order Prescriptions: New quetiapine 25 mg Tablet 12.5 mg PO BID@0900,1900 Qty: 30 RF: 0 tamsulosin 0.4 mg Capsule 0.4 mg PO QAM 30 Days Qty: 30 RF: 0 magnesium oxide 400 mg (241.3 mg magnesium) Tablet 400 mg PO QAM Qty: 5 RF: 0 Continued amlodipine 5 mg Tablet 5 mg PO DAILY RF: 0 isosorbide mononitrate 60 mg Tablet Extended Release 24 Hr 60 mg PO QAM RF: 0 hydrochlorothiazide 12.5 mg Capsule 12.5 mg PO DAILY RF: 0 glipizide 5 mg Tablet 5 mg PO BID RF: 0 lorazepam 0.5 mg Tablet 0.5 mg PO BID PRN (Reason: Anxiety) RF: 0 metoprolol succinate 25 mg Capsule,Sprinkle,Er 24hr 25 mg PO DAILY RF: 0 metformin 500 mg Tablet 500 mg PO BID RF: 0 atorvastatin 80 mg Tablet 80 mg PO DAILY RF: 0 nitroglycerin 0.4 mg tablet, sublingual 0.4 mg sublingual DAILY RF: 0 losartan 100 mg Tablet 100 mg PO DAILY RF: 0 aspirin 81 mg Tablet,Delayed Release (Dr/Ec) 81 mg PO DAILY RF: 0 ergocalciferol (vitamin D2) 1,000 unit Capsule 10 mcg PO DAILY RF: 0 Discontinued quetiapine [Seroquel] 50 mg Tablet 50 mg PO HS RF: 0 azithromycin 500 mg Tablet 500 mg PO DAILY RF: 0 Discharge Orders: Discharge Order (Routine); Ordered 02/09/21 Ordered By: Anette Judd/Other Patient Handouts: High Blood Sugar (Hyperglycemia), Hypoglycemia (Low Blood Sugar), Managing Type 2 Diabetes Admission Data Admit Date/Time: 01/24/21 06:29 Attending Provider: Anette Suggs I. Admit Provider: Lonnie Quintero Primary Care Provider: Reilly Rene Other Providers: Pina Napier ; Yuval Joaquin ; [facility] ; Jaylene Jacinto ; Bucky Hurd ; Jaylene Lazar ; Spencer Lopez ; Jackie Claire ; Emily Hdez ; Kaia Menard ; Kali Shetty ; Bandar Romero Other Interventions: Discharge Summary Assessment (RN) Last Done: 02/09/21 17:16
[2021-02-09] MEDS ORDERED: MAGNESIUM OXIDE 400 MG TAB PO SCH (14:30)
--- NOTE | 2021-02-09 17:50 | Electrocardiogram Report ---
Test Reason : Blood Pressure : / mmHG Vent. Rate : 071 BPM Atrial Rate : 071 BPM P-R Int : 242 ms QRS Dur : 142 ms QT Int : 432 ms P-R-T Axes : 000 -32 015 degrees QTc Int : 469 ms Atrial-paced rhythm with prolonged AV conduction with frequent Premature ventricular complexes Left axis deviation Right bundle branch block Abnormal ECG When compared with ECG of 08-FEB-2021 05:33, No significant change was found Confirmed by Rob Guevara ([id number]) on 02/09/2021 5:50:24 PM Referred By: REFERRED SELF Confirmed By:Can Guevara
== END 2021-02-09 17:48 | disposition home health service (06) | DRG 56 ==
LOC: ED 02:29 → SUATTDRO 06:29 → EDINP 06:29 → 2N 01-25 09:23

== ENCOUNTER 2021-02-12 22:25 | Inpatient (IN) ==
[2021-02-12] MEDS ORDERED: SODIUM CHLORIDE 0.9% 1000ML 500 ML IV ONE (22:34)
[2021-02-12 23:02] LABS: Appearance Urine Turbid (Clear); Bacteria Urine Automated Negative (Negative); Bilirubin Urine Negative (Negative); Blood Urine 3+ (Negative); Color Urine Yellow; Glucose Urine UA Negative (Negative); Ketones Urine Trace (Negative); Leukocyte Esterase Urine 3+ (Negative); Nitrite Urine Negative (Negative); Protein Urine Trace (Negative); Urobilinogen Urine Negative (Negative); WBC Urine Automated >30 /hpf (0-5)
[2021-02-12 23:14] LABS: Basophils # (auto) 0.02 K/uL (0-0.2); Basophils % (auto) 0.2 %; Eosinophils % (auto) 1.1 %; Hematocrit (blood only) 35.6 % (42-52); Hemoglobin 12.2 g/dL (14.0-18.0); Immature Granulocytes # (auto) 0.02 K/uL (0.00-0.02); Immature Granulocytes % (auto) 0.2 %; Lymphocytes # (auto) 1.61 K/uL (1.2-3.4); Mean Corpuscular Hemoglobin 32.6 pg (25-34); Mean Corpuscular Hgb Conc 34.3 g/dL (32-36); Mean Corpuscular Volume 95.2 fL (80-100); Mean Platelet Volume 10.8 fL (7.4-10.4); Monocytes # (auto) 0.57 K/uL (0.11-0.59); Monocytes % (auto) 6.4 %; Neutrophils # (auto) 6.63 K/uL (1.4-6.5); Neutrophils % (auto) 74.1 %; Platelet Count 231 K/uL (130-400); RDW Coefficient of Variation 12.9 % (11.5-14.5); RDW Standard Deviation 44.7 fL (36.4-46.3); Red Blood Count 3.74 M/uL (4.7-6.1); White Blood Count 8.95 K/uL (4.8-10.8)
[2021-02-12] MEDS ORDERED: cefTRIAXone SODIUM 1,000 MG/50 ML BAG IV STA (23:14)
--- NOTE | 2021-02-12 23:14 | Emergency Department Note ---
History of Present Illness General Chief complaint: Urinary Symptoms Stated complaint: CATHETER ISSUES/INFECTION Time Seen by Provider: 02/12/21 22:29 History of Present Illness This 80-year-old presents to the ER complaining of problems with a Bautista with penile drainage Location: Penis Quality: Drainage Severity: Moderate Duration: Today Timing: Today Context: The noted purulent drainage from the penis and problems with the Bautista and brought the patient in Modifying factors: better with rest; worse with movement Patient had a Bautista placed for urinary retention while in the hospital. No hi story of this in the past. He had some medication changes. states he has been slightly more agitated. No fever. Patient and family deny vomiting, diarrhea, abdominal pain, chest pain, fever, chills. Home Medications Medication Instructions Recorded Confirmed Type amlodipine 5 mg tablet 5 mg PO DAILY 07/07/20 02/12/21 History glipizide 5 mg tablet 5 mg PO BID 07/07/20 02/12/21 History hydrochlorothiazide 12.5 mg capsule 12.5 mg PO DAILY 07/07/20 02/12/21 History isosorbide mononitrate 60 mg 60 mg PO QAM 07/07/20 02/12/21 History tablet,extended release 24 hr aspirin 81 mg tablet,delayed 81 mg PO DAILY 01/24/21 02/12/21 History release atorvastatin 80 mg tablet 80 mg PO DAILY 01/24/21 02/12/21 History lorazepam 0.5 mg tablet 0.5 mg PO BID PRN 01/24/21 02/12/21 History losartan 100 mg tablet 100 mg PO DAILY 01/24/21 02/12/21 History metformin 500 mg tablet 500 mg PO BID 01/24/21 02/12/21 History metoprolol succinate 25 mg capsule 12.5 mg PO DAILY 01/24/21 02/12/21 History sprinkle, ext. release 24 hr nitroglycerin 0.4 mg sublingual 0.4 mg SUBLINGUAL DIRECTED PRN 01/24/21 02/12/21 History tablet magnesium oxide 400 mg (241.3 mg 400 mg PO QAM #5 tab 02/09/21 02/12/21 Rx magnesium) tablet quetiapine 25 mg tablet 12.5 mg PO BID@0900,1900 #30 tab 12/28/21 12/31/21 Rx tamsulosin 0.4 mg capsule 0.4 mg PO QAM 30 Days #30 cap 02/09/21 02/12/21 Rx cholecalciferol (vitamin D3) 10 10 mcg PO DAILY 02/12/21 02/12/21 History mcg (400 unit) capsule (Vitamin D3) Allergies Allergy/AdvReac Type Severity Reaction Status Date / Time Penicillins Allergy Intermediate TOES Verified 02/12/21 23:25 SWELL/ITCHY Past Med/Surg History Medical History Agitation due to dementia Aortic regurgitation CKD (chronic kidney disease), stage III Type 2 diabetes mellitus with unspecified complications Surgical History H/O colonoscopy History of appendectomy Social History Smoking Status: Former smoker Second Hand Exposure: No; Hx Alcohol Use: No Hx Substance Use: No Preferred Language: Austrian Communication Ability: Effective Water Resource Project Manager Required: No Beliefs That Will Affect Care: None Current Living Situation: Spouse Feels Safe at Home: Yes Assistive Devices: None Review of Systems A total of 10 systems reviewed and were otherwise negative Physical Exam Vital Signs Vital Signs - 24 hr 02/12/21 22:30 Temperature 36.8 C Temperature Source Temporal Artery Scan Pulse Rate 75 Respiratory Rate 18 Respiratory Effort / Characteristics Non-Labored Spontaneous Respiratory Depth Normal Respiratory Pattern Regular Blood Pressure 116/50 L Blood Pressure Mean 72 Pulse Oximetry 93 Oxygen Delivery Method Room Air Sepsis Recent Fever Within 48 Hours Yes Sepsis New/Unexplained Change in Mental Status No Sepsis Action Taken by Nursing No Action Required VITALS: Vitals are noted on the nurse's note and reviewed by myself. Vital signs stable. GENERAL: Pleasant elderly male, in no acute distress, nondiaphoretic, well- developed well-nourished. SKIN: The skin was without rashes, erythema, edema, or bruising. There is no tenting of the skin. Capillary reflex less than 2 seconds. HEAD: Normocephalic atraumatic. EARS: External auditory canals clear, EYES: Pupils equal round and reactive to light and accommodation. Conjunctivae without injection, sclerae without icterus. Extraocular movements intact. NOSE: Patent, turbinates without inflammation or discharge. MOUTH: Mucous membranes moist. Pharynx without erythema or exudate. Uvula midline. Airway patent. Tongue does not deviate. NECK: Supple without nuchal rigidity. No lymphadenopathy. No thyromegaly. Cervical spine is nontender. No JVD. HEART: Regular rate and rhythm LUNGS: Clear to auscultation bilaterally without wheezes, rales or rhonchi. No retractions or accessory muscle use. ABDOMEN: Positive bowel sounds x 4. Normal tympanic percussion. Soft, nontender, without masses or organomegaly. Rosario sign negative. No guarding or rebound tenderness. No CVA tenderness exam: Normal external male genitalia with Bautista present, purulent drainage from the urethral meatus, wound culture sent. Coremaker Experimental present. MUSCULOSKELETAL: No muscle atrophy, erythema, or edema noted. NEURO: Patient was alert and oriented to person place and time. Normal sensation to light and sharp touch. No focal neurological deficits. Course Administered Medications Lactated Ringer's (Lr) 1,000 mls @ 80 mls/hr IV .[id number] ONE Stop: 02/13/21 15:25 Last Admin: 02/13/21 03:19 Dose: 80 mls/hr Documented by: [id number] Discontinued Medications Sodium Chloride (Nss 1000ml) 500 mls @ 999 mls/hr IV .[id number] ONE Stop: 02/12/21 23:04 Last Infusion: 02/13/21 02:33 Dose: 0 mls/hr Documented by: [id number] Admin: 02/12/21 22:46 Dose: 999 mls/hr Documented by: [id number] Ceftriaxone Sodium (Rocephin) 1,000 mg in 50 mls @ 100 mls/hr IV NOW STA Stop: 02/12/21 23:43 Last Infusion: 02/13/21 02:33 Dose: 0 mls/hr Documented by: [id number] Admin: 02/13/21 00:00 Dose: 100 mls/hr Documented by: [id number] Cefepime HCl (Maxipime) 2,000 mg in 20 mls @ 5 mls/min IV NOW STA; Protocol Stop: 02/13/21 02:51 Last Admin: 02/13/21 03:19 Dose: 5 mls/min Documented by: [id number] Ioversol (Optiray 320 100ml) 94 ml IV ONCE ONE Stop: 02/13/21 03:59 Last Admin: 02/13/21 03:58 Dose: 94 ml Documented by: [id number] Lidocaine HCl (Lidocaine 2% Jelly 5 Ml Tube) Confirm Administered Dose 5 ml .ROUTE .STK-MED ONE Stop: 02/13/21 01:54 Last Admin: 02/13/21 02:32 Dose: 5 ml Documented by: [id number] Medical Decision Making Medical Records Attestation: I reviewed the patient's medical records. Home Medications Current Medication List: was personally reviewed by me Laboratory Data Attestation: I reviewed the patient's lab results. Result diagrams: 02/12/21 23:01 02/12/21 23:01 Lab Results 02/12/21 02/12/21 02/12/21 Range/Units 22:47 23:01 23:01 WBC 8.95 (4.8-10.8) K/uL RBC 3.74 L (4.7-6.1) M/uL Hgb 12.2 L (14.0-18.0) g/dL Hct 35.6 L (42-52) % MCV 95.2 (80-100) fL MCH 32.6 (25-34) pg MCHC 34.3 (32-36) g/dL RDW Std Deviation 44.7 (36.4-46.3) fL RDW Coeff of Tg 12.9 (11.5-14.5) % Plt Count 231 (130-400) K/uL MPV 10.8 H (7.4-10.4) fL Immature Gran % (Auto) 0.2 % Neut % (Auto) 74.1 % Lymph % (Auto) 18.0 % Falls % (Auto) 6.4 % Eos % (Auto) 1.1 % Baso % (Auto) 0.2 % Neut # (Auto) 6.63 H (1.4-6.5) K/uL Lymph # (Auto) 1.61 (1.2-3.4) K/uL [place] # (Auto) 0.57 (0.11-0.59) K/uL Eos # (Auto) 0.10 (0-0.5) K/uL Baso # (Auto) 0.02 (0-0.2) K/uL Immature Gran # (Auto) 0.02 (0.00-0.02) K/uL Sodium 141 (136-145) mmol/L Potassium 3.7 (3.5-5.1) mmol/L Chloride 108 H (98-107) mmol/L Carbon Dioxide 28 (21-32) mmol/L Anion Gap 5.0 (3-11) BUN 34 H (7-18) mg/dl Creatinine 1.37 (0.6-1.4) mg/dl Est Cr Clr Drug Dosing 38.8 ml/min Est GFR ( Amer) 56.1 ml/min Est GFR (Non-Af Amer) 48.4 ml/min BUN/Creatinine Ratio 24.9 H (10-20) Glucose 164 H (70-99) mg/dl Calcium 9.5 (8.5-10.1) mg/dl Magnesium 2.0 (1.8-2.4) mg/dl Total Bilirubin 1.4 H (0.2-1) mg/dl AST 34 (15-37) U/L ALT 29 (12-78) Alkaline Phosphatase 108 (45-117) U/L Total Protein 7.0 (6.4-8.2) gm/dl Albumin 3.2 L (3.4-5.0) gm/dl Globulin 3.8 (2.5-4.0) gm/dl Albumin/Globulin Ratio 0.8 L (0.9-2) Urine Color Yellow Urine Appearance Turbid A (Clear) Urine pH 5.0 (4.5-7.5) Ur Specific [place] 1.020 (1.000-1.030) Urine Protein Trace H (Negative) Urine Glucose (UA) Negative (Negative) Urine Ketones Trace H (Negative) Urine Blood 3+ H (Negative) Urine Nitrite Negative (Negative) Urine Bilirubin Negative (Negative) Urine Urobilinogen Negative (Negative) Ur Leukocyte Esterase 3+ H (Negative) Urine WBC (Auto) >30 H (0-5) /hpf Urine RBC (Auto) 10-30 H (0-4) /hpf U Hyaline Cast (Auto) 1-5 (0-5) /lpf U Epithel Cells (Auto) 5-10 H (0-5) /lpf Urine Bacteria (Auto) Negative (Negative) Urine Crystals Not Reportable Other Crystals Hippuric Acid A (None Prsent) Urine Yeast Not Reportable SARS-CoV-2, RNA, NAAT (NEGATIVE) 02/13/21 Range/Units 01:53 WBC (4.8-10.8) K/uL RBC (4.7-6.1) M/uL Hgb (14.0-18.0) g/dL Hct (42-52) % MCV (80-100) fL MCH (25-34) pg MCHC (32-36) g/dL RDW Std Deviation (36.4-46.3) fL RDW Coeff of Tg (11.5-14.5) % Plt Count (130-400) K/uL MPV (7.4-10.4) fL Immature Gran % (Auto) % Neut % (Auto) % Lymph % (Auto) % [place] % (Auto) % Eos % (Auto) % Baso % (Auto) % Neut # (Auto) (1.4-6.5) K/uL Lymph # (Auto) (1.2-3.4) K/uL [place] # (Auto) (0.11-0.59) K/uL Eos # (Auto) (0-0.5) K/uL Baso # (Auto) (0-0.2) K/uL Immature Gran # (Auto) (0.00-0.02) K/uL Sodium (136-145) mmol/L Potassium (3.5-5.1) mmol/L Chloride (98-107) mmol/L Carbon Dioxide (21-32) mmol/L Anion Gap (3-11) BUN (7-18) mg/dl Creatinine (0.6-1.4) mg/dl Est Cr Clr Drug Dosing ml/min Est GFR ( Amer) ml/min Est GFR (Non-Af Amer) ml/min BUN/Creatinine Ratio (10-20) Glucose (70-99) mg/dl Calcium (8.5-10.1) mg/dl Magnesium (1.8-2.4) mg/dl Total Bilirubin (0.2-1) mg/dl AST (15-37) U/L ALT (12-78) Alkaline Phosphatase (45-117) U/L Total Protein (6.4-8.2) gm/dl Albumin (3.4-5.0) gm/dl Globulin (2.5-4.0) gm/dl Albumin/Globulin Ratio (0.9-2) Urine Color Urine Appearance (Clear) Urine pH (4.5-7.5) Ur Specific [place] (1.000-1.030) Urine Protein (Negative) Urine Glucose (UA) (Negative) Urine Ketones (Negative) Urine Blood (Negative) Urine Nitrite (Negative) Urine Bilirubin (Negative) Urine Urobilinogen (Negative) Ur Leukocyte Esterase (Negative) Urine WBC (Auto) (0-5) /hpf Urine RBC (Auto) (0-4) /hpf U Hyaline Cast (Auto) (0-5) /lpf U Epithel Cells (Auto) (0-5) /lpf Urine Bacteria (Auto) (Negative) Urine Crystals Other Crystals (None Prsent) Urine Yeast SARS-CoV-2, RNA, NAAT NEGATIVE (NEGATIVE) MDM Narrative Prior records/ancillary studies reviewed and summarized above. Nursing notes reviewed. Additional history obtained from nursing. The patient's history was concerning for urine problems. Differential diagnosis: Etiologies such as metabolic, infection, hypo/hyperglycemia, electrolyte abnormalities, cardiac sources, intracerebral event, toxicologic, neurologic, as well as others were entertained. Physical examination: As above. ER treatment provided: IV Lock An order was placed for continuous cardiac monitoring. The monitor shows a rate of 60-100 with a sinus rhythm. Bautista was removed and patient attempted to urinate and was unsuccessful. Bautista catheter was replaced. Patient was given Rocephin On reassessment the patient felt better. Diagnostics interpretation by me: The urine was concerning for infection sent for culture. No prior urine culture for review. Consultation: A consultation was placed with the hospitalist. The case was discussed and diagnostics were reviewed. The patient was evaluated in the ER for further treatment. Exam and history seem consistent with UTI, weakness and urinary retention. No prior urine culture for review. Patient was given antibiotics. He was given a trial of ambulation and failed. He was too weak to walk. Family is requesting admission. Medicine was consulted. Bautista catheter was replaced. Penile swab was taken and sent to lab. There is purulent drainage. Patient and family are agreeable. By the evaluation outlined above emergent etiologies such as electrolyte abnor malities, cardiac sources, intracerebral event, toxologic, neurologic, abnormalities blood glucose, metabolic, as well as others were deemed relatively unlikely. The pt/family informed about the findings as listed above. All questions were answered and pleased with the treatment. The chart was completed utilizing [employer] Speech voice recognition software. Grammatical errors, random word insertions, pronoun errors, and incomplete sentences are an occassional consequence of this system due to software limitations, ambient noise, and hardware issues. Any formal questions or concerns about the content, text, or information contained within the body of this dictation should be directly addressed to the physician study assistant for clarification. Impression & Plan Acute retention of urine, Urinary tract infection, Weakness Discharge Plan Visit Data Chief Complaint: Urinary Symptoms Stated Complaint: CATHETER ISSUES/INFECTION ED Provider: Henrique Gilmore ED Midlevel Provider: Chelsy Guajardo Discharge Problem: Acute retention of urine, Urinary tract infection, Weakness Patient Disposition: Being Evaluated by Hospitalist Condition: Good Forms Stand Alone Forms: [facility] Prescriptions Prescriptions: No Action cholecalciferol (vitamin D3) [Vitamin D3] 10 mcg (400 unit) Capsule 10 mcg PO DAILY RF: 0 amlodipine 5 mg Tablet 5 mg PO DAILY RF: 0 isosorbide mononitrate 60 mg Tablet Extended Release 24 Hr 60 mg PO QAM RF: 0 hydrochlorothiazide 12.5 mg Capsule 12.5 mg PO DAILY RF: 0 glipizide 5 mg Tablet 5 mg PO BID RF: 0 lorazepam 0.5 mg Tablet 0.5 mg PO BID PRN (Reason: Anxiety) RF: 0 metoprolol succinate 25 mg Capsule,Sprinkle,Er 24hr 12.5 mg PO DAILY RF: 0 metformin 500 mg Tablet 500 mg PO BID RF: 0 atorvastatin 80 mg Tablet 80 mg PO DAILY RF: 0 nitroglycerin 0.4 mg tablet, sublingual 0.4 mg sublingual DIRECTED PRN (Reason: Chest Pain) RF: 0 losartan 100 mg Tablet 100 mg PO DAILY RF: 0 aspirin 81 mg Tablet,Delayed Release (Dr/Ec) 81 mg PO DAILY RF: 0 quetiapine 25 mg Tablet 12.5 mg PO BID@0900,1900 Qty: 30 RF: 0 tamsulosin 0.4 mg Capsule 0.4 mg PO QAM 30 Days Qty: 30 RF: 0 magnesium oxide 400 mg (241.3 mg magnesium) Tablet 400 mg PO QAM Qty: 5 RF: 0 Referrals Referrals: Reilly Rene MD [Primary Care Provider] -
[2021-02-12 23:32] LABS: Albumin Level 3.2 gm/dl (3.4-5.0); BUN Creatinine Ratio 24.9 (10-20); Calcium 9.5 mg/dl (8.5-10.1); Creatinine Clr Calc Pharmacy 38.8 ml/min; Est GFR (African American) 56.1 ml/min; Est GFR (Non-African American) 48.4 ml/min; Potassium 3.7 mmol/L (3.5-5.1)
[2021-02-12 23:35] LABS: Albumin Globulin Ratio 0.8 (0.9-2); Bilirubin,Total 1.4 mg/dl (0.2-1); Globulin 3.8 gm/dl (2.5-4.0)
--- NOTE | 2021-02-13 00:37 | Emergency Department Note ---
ED Visit Note I have personally evaluated this patient examined him and reviewed the pertinent labs and data. I have discussed the case with Jennifer Guajardo, the physician assistant professor of marine biology and agree with the plan. Please refer to the PA note This patient has dementia and was brought in after he has had some discharge around his catheter. His reports no fever. His urinalysis here does suggest infection but he has no fever here and his blood work is unremarkable including a normal white count. We did give him IV antibiotics. He does have a small amount of purulent discharge from the penis but no redness of the penis itself. It could be from the catheter but he could also certainly have an infection. The wants to try to take him home. We are going to try an ambulatory trial and if he does okay she will take him home and if he cannot go home he will need to be admitted. .
[2021-02-13] MEDS ORDERED: LIDOCAINE 2% JELLY 5 ML TUBE ONE (01:53)
[2021-02-13] MEDS ORDERED: CEFEPIME 2,000 MG/20 ML VIAL IV STA (02:48)
--- NOTE | 2021-02-13 02:49 | History & Physical Report ---
Date of Service February 13, 2021 Assessment & Plan (1) Delirium: Plan: hx dementia Secondary to complicated UTI History urinary retention possibly from BPH status post indwelling Bautista catheter placement from last confinement hx CAD status post stent SSS status post PPM severe aortic regurgitation hypertension, stable hyperlipidemia on statin Rx DM2 on oral meds, reasonable control as of recent hemoglobin A1c of 7.13 January 2021 chronic anemia, hemoglobin at baseline Recurrent admissions, possible functional disability past tobacco abuse GMF CS, Cefepime CT abdomen pelvis May need Urology evaluation pending CT results Basal insulin, ISS BG goal 1 10-1 40, carb count coverage PT OT eval DVT prophylaxis. Lovenox subcu DNR as per , Ms. Caity Bateman. She requests updates from providers through [phone]. Text document was generated using [employer] voice recognition software. It may contain grammatical or spelling errors. Kindly contact undersigned for clarification of any documentation item in question. History of Present Illness Chief Complaint: Catheter issues, infection as per Primary Care Provider: Reilly Rene MD History obtained from patient, family, and records. Limited history from patient secondary to dementia. Medical history significant for CAD status post stent, SSS status post PPM, severe aortic regurgitation, hypertension, hyperlipidemia, DM2 on oral meds, dementia, chronic anemia (baseline hemoglobin 12-13), possible BPH, past tobacco abuse. Last confinement January 242020 behavioral disturbance. Patient with urinary retention during confinement. Started on tamsulosin by urology for possible BPH. Patient discharge with Bautista catheter with instructions to follow-up with urology outpatient. Yesterday, patient noted to have purulent penile drainage with lower abdominal pain as per . Patient tugging at Bautista catheter from time to time as per . No fever, no chills, no chest pain, no S OB. Patient a little more confused than usual as per . Patient brought to the ER for evaluation. IV ceftriaxone given at the ER for possible UTI. Bautista catheter replaced at the ER. 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 Allergies Allergy/AdvReac Type Severity Reaction Status Date / Time Penicillins Allergy Intermediate TOES Verified 02/12/21 23:25 SWELL/ITCHY Home Medications Medication Instructions Recorded Confirmed Type amlodipine 5 mg tablet 5 mg PO DAILY 07/07/20 02/12/21 History glipizide 5 mg tablet 5 mg PO BID 07/07/20 02/12/21 History hydrochlorothiazide 12.5 mg capsule 12.5 mg PO DAILY 07/07/20 02/12/21 History isosorbide mononitrate 60 mg 60 mg PO QAM 07/07/20 02/12/21 History tablet,extended release 24 hr aspirin 81 mg tablet,delayed 81 mg PO DAILY 01/24/21 02/12/21 History release atorvastatin 80 mg tablet 80 mg PO DAILY 01/24/21 02/12/21 History lorazepam 0.5 mg tablet 0.5 mg PO BID PRN 01/24/21 02/12/21 History losartan 100 mg tablet 100 mg PO DAILY 01/24/21 02/12/21 History metformin 500 mg tablet 500 mg PO BID 01/24/21 02/12/21 History metoprolol succinate 25 mg capsule 12.5 mg PO DAILY 01/24/21 02/12/21 History sprinkle, ext. release 24 hr nitroglycerin 0.4 mg sublingual 0.4 mg SUBLINGUAL DIRECTED PRN 01/24/21 02/12/21 History tablet magnesium oxide 400 mg (241.3 mg 400 mg PO QAM #5 tab 02/09/21 02/12/21 Rx magnesium) tablet quetiapine 25 mg tablet 12.5 mg PO BID@0900,1900 #30 tab 02/09/21 02/12/21 Rx tamsulosin 0.4 mg capsule 0.4 mg PO QAM 30 Days #30 cap 02/09/21 02/12/21 Rx cholecalciferol (vitamin D3) 10 10 mcg PO DAILY 02/12/21 02/12/21 History mcg (400 unit) capsule (Vitamin D3) Past Med/Surg History Medical History Agitation due to dementia Aortic regurgitation CKD (chronic kidney disease), stage III Type 2 diabetes mellitus with unspecified complications Surgical History H/O colonoscopy History of appendectomy Social History Smoking Status: Former smoker Second Hand Exposure: No; Hx Alcohol Use: No Hx Substance Use: No Preferred Language: Nepalese Communication Ability: Effective Football Scout Required: No Beliefs That Will Affect Care: None Current Living Situation: Spouse Feels Safe at Home: Yes Assistive Devices: None Review of Systems Review of Systems: Could not be reliably obtained Physical Exam Physical Exam: GENERAL: Demented, no respiratory distress SKIN: Normal color, warm HEENT: [place] palpebral conjunctivae, no ptosis, dry buccal mucosa NECK : Supple, no tenderness CHEST : CTA, no tenderness HEART : RRR, systolic murmur best heard over second right intercostal spaceno obvious murmurs ABDOMEN: Some distention, nontender EXTREMITIES : No LE swelling/tenderness, no other conspicuous deformities noted NEUROLOGIC : Demented, no facial asymmetry, no other gross focality Results & Data Results & Data ([facility]) Vital Signs (Past 12 Hours) Vital Signs Temp Pulse Resp BP Pulse Ox 02/12/21 22:30 36.8 C 75 18 116/50 L 93 Laboratory Results Laboratory Results WBC 8.95 K/uL (4.8-10.8) 02/12/21 23:01 RBC 3.74 M/uL (4.7-6.1) L 02/12/21 23:01 Hgb 12.2 g/dL (14.0-18.0) L 02/12/21 23:01 Hct 35.6 % (42-52) L 02/12/21 23:01 MCV 95.2 fL (80-100) 02/12/21 23:01 MCH 32.6 pg (25-34) 02/12/21 23:01 MCHC 34.3 g/dL (32-36) 02/12/21 23:01 RDW Std Deviation 44.7 fL (36.4-46.3) 02/12/21 23:01 RDW Coeff of Tg 12.9 % (11.5-14.5) 02/12/21 23: Plt Count 231 K/uL (130-400) 02/12/21 23:01 MPV 10.8 fL (7.4-10.4) H 02/12/21 23:01 Immature Gran % (Auto) 0.2 % 02/12/21 23:01 Neut % (Auto) 74.1 % 02/12/21 23:01 Lymph % (Auto) 18.0 % 02/12/21 23:01 [place] % (Auto) 6.4 % 02/12/21 23:01 Eos % (Auto) 1.1 % 02/12/21 23:01 Baso % (Auto) 0.2 % 02/12/21 23:01 Neut # (Auto) 6.63 K/uL (1.4-6.5) H 02/12/21 23: Lymph # (Auto) 1.61 K/uL (1.2-3.4) 02/12/21 23:01 [place] # (Auto) 0.57 K/uL (0.11-0.59) 02/12/21 23: Eos # (Auto) 0.10 K/uL (0-0.5) 02/12/21 23:01 Baso # (Auto) 0.02 K/uL (0-0.2) 02/12/21 23: Immature Gran # (Auto) 0.02 K/uL (0.00-0.02) 02/12/21 23:01 Sodium 141 mmol/L (136-145) 02/12/21 23:01 Potassium 3.7 mmol/L (3.5-5.1) 02/12/21 23: Chloride 108 mmol/L (98-107) H 02/12/21 23:01 Carbon Dioxide 28 mmol/L (21-32) 02/12/21 23:01 Anion Gap 5.0 (3-11) 02/12/21 23: BUN 34 mg/dl (7-18) H 02/12/21 23: Creatinine 1.37 mg/dl (0.6-1.4) 02/12/21 23:01 Est Cr Clr Drug Dosing 38.8 ml/min 02/12/21 23:01 Est GFR ( Amer) 56.1 ml/min 02/12/21 23: Est GFR (Non-Af Amer) 48.4 ml/min 02/12/21 23: BUN/Creatinine Ratio 24.9 (10-20) H 02/12/21 23: Glucose 164 mg/dl (70-99) H 02/12/21 23:01 Calcium 9.5 mg/dl (8.5-10.1) 02/12/21 23:01 Magnesium 2.0 mg/dl (1.8-2.4) 02/12/21 23:01 Total Bilirubin 1.4 mg/dl (0.2-1) H 02/12/21 23:01 AST 34 U/L (15-37) 02/12/21 23:01 ALT 29 (12-78) 02/12/21 23:01 Alkaline Phosphatase 108 U/L (45-117) 02/12/21 23:01 Total Protein 7.0 gm/dl (6.4-8.2) 02/12/21 23:01 Albumin 3.2 gm/dl (3.4-5.0) L 02/12/21 23:01 Globulin 3.8 gm/dl (2.5-4.0) 02/12/21 23:01 Albumin/Globulin Ratio 0.8 (0.9-2) L 02/12/21 23:01 Urine Color Yellow 02/12/21 22:47 Urine Appearance Turbid (Clear) A 02/12/21 22:47 Urine pH 5.0 (4.5-7.5) 02/12/21 22:47 Ur Specific [place] 1.020 (1.000-1.030) 02/12/21 22:47 Urine Protein Trace (Negative) H 02/12/21 22:47 Urine Glucose (UA) Negative (Negative) 02/12/21 22:47 Urine Ketones Trace (Negative) H 02/12/21 22:47 Urine Blood 3+ (Negative) H 02/12/21 22:47 Urine Nitrite Negative (Negative) 02/12/21 22:47 Urine Bilirubin Negative (Negative) 02/12/21 22:47 Urine Urobilinogen Negative (Negative) 02/12/21 22:47 Ur Leukocyte Esterase 3+ (Negative) H 02/12/21 22:47 Urine WBC (Auto) >30 /hpf (0-5) H 02/12/21 22:47 Urine RBC (Auto) 10-30 /hpf (0-4) H 02/12/21 22:47 U Hyaline Cast (Auto) 1-5 /lpf (0-5) 02/12/21 22:47 U Epithel Cells (Auto) 5-10 /lpf (0-5) H 02/12/21 22:47 Urine Bacteria (Auto) Negative (Negative) 02/12/21 22:47 Urine Crystals Not Reportable 02/12/21 22:47 Other Crystals Hippuric Acid (None Prsent) A 02/12/21 22:47 Urine Yeast Not Reportable 02/12/21 22:47 SARS-CoV-2, RNA, NAAT NEGATIVE (NEGATIVE) 02/13/21 01:53
[2021-02-13] MEDS ORDERED: LACTATED RINGER'S 1,000 ML IV ONE (02:56)
[2021-02-13] MEDS ORDERED: OPTIRAY 320 100ml IV ONE (03:58)
[2021-02-13] MEDS ORDERED: CARBOHYDRATES FOR HYPOGLYCEMIA PO PRN (06:12)
[2021-02-13] MEDS ORDERED: ACETAMINOPHEN 325 MG TAB PO PRN (06:12)
[2021-02-13] MEDS ORDERED: DEXTROSE 50% 50 ML SYRINGE IV PRN (06:12)
[2021-02-13] MEDS ORDERED: GLUCOSE 40% GEL 15 GM TUBE PO PRN (06:12)
[2021-02-13] MEDS ORDERED: PROMETHAZINE HCL 12.5 MG in SODIUM CHLORIDE 0.9% 50 ML IV PRN (06:12)
[2021-02-13] MEDS ORDERED: KETOROLAC TROMETHAMINE 15 MG/ML VIAL IV PRN (06:12)
[2021-02-13] MEDS ORDERED: GLUCAGON FOR INJ 1 MG VIAL SQ PRN (06:12)
[2021-02-13] MEDS ORDERED: OLANZapine 10 MG/2.1 ML SDV IM PRN (06:12)
[2021-02-13] MEDS ORDERED: GLUCOSE 10 TABS/TUBE PO PRN (06:12)
--- NOTE | 2021-02-13 08:46 | CT Scan Report ---
ABDOMEN AND PELVIS CT WITH IV CONTRAST CT DOSE: 445.36 mGy.cm HISTORY: Acute generalized abdominal pain abd pain TECHNIQUE: Multiaxial CT images of the abdomen and pelvis were performed following the IV administrat ion of 94 cc of Optiray, A dose lowering technique was utilized adhering to the principles of ALARA. COMPARISON STUDY: Chest radiograph 01/24/2021 FINDINGS: Limited exam secondary to upper extremity positioning and respiratory motion artifact. Card iomegaly with partially imaged pacer leads. Mild bibasilar atelectasis. There is no pneumatosis or pn eumoperitoneum. The spleen, pancreas, mildly contracted gallbladder, adrenal glands and liver appear unremarkable. The portal vein appears patent. Unremarkable kidneys without hydronephrosis. Decompress ed urinary bladder with Bautista catheter in place. Prostamegaly. Layering hyperdense material within th e urinary bladder as seen on image 385 of series 3, possibly a small stone fragments versus contrast. Atherosclerosis of the aorta with infrarenal ectasia measuring 2.9 x 2.5 cm. No rupture. No retroper itoneal hemorrhage or adenopathy. Duplicated IVC. There is no bowel obstruction, ascites or mesenteric inflammation. Colonic diverticulosis. Mild wall thickening of the sigmoid is likely chronic. No definite evidence of acute diverticulitis. The append ix is not diagnostically visualized. No secondary signs of acute appendicitis. Scattered small bowel air-fluid levels likely physiologic. Small periumbilical hernia contains mesenteric fat and a nonobst ructed loop of ileum with diastases of 1.5 cm. Unremarkable soft tissues. Degenerative changes of the spine, pelvis and hips. IMPRESSION: 1. No acute intra-abdominal or intrapelvic abnormality. 2. Colonic diverticulosis without acute diverticulitis. 3. Small periumbilical hernia contains mesenteric fat and a nonobstructed loop of ileum. 4. Ectasia of the infrarenal abdominal aorta measures 2.9 cm. 5. Additional findings as above. ACT 112: Negative or not required by law. The above report was generated using voice recognition software. It may contain grammatical, syntax o r spelling errors. Electronically signed by: Mehul Sow M.D. 02/13/2021 8:45 AM
[2021-02-13] MEDS: TAMSULOSIN HCL 0.4 MG CAP PO SCH (08:49)
[2021-02-13] MEDS: ISOSORBIDE MONO EXTENDED REL 60 MG TABCR PO SCH (08:49)
[2021-02-13] MEDS: ATORVASTATIN 40 MG TAB PO SCH (08:49)
[2021-02-13] MEDS: LOSARTAN POTASSIUM 50 MG TAB PO SCH (08:49)
[2021-02-13] MEDS: amLODIPine BESYLATE 5 MG TAB PO SCH (08:50)
[2021-02-13] MEDS: ASPIRIN 81 MG ECTAB PO SCH (08:50)
[2021-02-13] MEDS: QUEtiapine FUMARATE 25 MG TABLET PO SCH ×2 (08:51→19:42)
[2021-02-13] MEDS: METOPROLOL SUCC 25MG EXT REL TAB PO SCH (08:51)
[2021-02-13] MEDS: ENOXAPARIN INJ 30 MG/0.3 ML SYR SQ SCH (08:52)
[2021-02-13] MEDS: INSULIN ASPART PER UNIT SC SCH ×4 (09:45→22:26)
[2021-02-13] MEDS: INSULIN GLARGINE SOLOSTAR 100 UNITS/ML 3 ML PEN SC SCH (10:39)
[2021-02-13] MEDS ORDERED: LACTATED RINGER'S 1,000 ML IV SCH (18:45)
[2021-02-14] MEDS: CEFEPIME 2,000 MG in SYRINGE 0 ML IV SCH (05:03)
[2021-02-14 08:43] LABS: Basophils # (auto) 0.03 K/uL (0-0.2); Basophils % (auto) 0.3 %; Eosinophils # (auto) 0.02 K/uL (0-0.5); Eosinophils % (auto) 0.2 %; Hematocrit (blood only) 31.7 % (42-52); Hemoglobin 10.8 g/dL (14.0-18.0); Immature Granulocytes # (auto) 0.02 K/uL (0.00-0.02); Immature Granulocytes % (auto) 0.2 %; Lymphocytes # (auto) 1.22 K/uL (1.2-3.4); Lymphocytes % (auto) 13.3 %; Mean Corpuscular Hgb Conc 34.1 g/dL (32-36); Mean Corpuscular Volume 93.8 fL (80-100); Mean Platelet Volume 10.9 fL (7.4-10.4); Monocytes # (auto) 0.54 K/uL (0.11-0.59); Monocytes % (auto) 5.9 %; Neutrophils # (auto) 7.31 K/uL (1.4-6.5); Neutrophils % (auto) 80.1 %; Platelet Count 178 K/uL (130-400); RDW Coefficient of Variation 12.8 % (11.5-14.5); RDW Standard Deviation 43.8 fL (36.4-46.3); Red Blood Count 3.38 M/uL (4.7-6.1); White Blood Count 9.14 K/uL (4.8-10.8)
[2021-02-14] MEDS: QUEtiapine FUMARATE 25 MG TABLET PO SCH ×2 (09:07→19:55)
[2021-02-14] MEDS: amLODIPine BESYLATE 5 MG TAB PO SCH (09:08)
[2021-02-14] MEDS: ATORVASTATIN 40 MG TAB PO SCH (09:08)
[2021-02-14] MEDS: LOSARTAN POTASSIUM 50 MG TAB PO SCH (09:08)
[2021-02-14] MEDS: ISOSORBIDE MONO EXTENDED REL 60 MG TABCR PO SCH (09:08)
[2021-02-14] MEDS: INSULIN GLARGINE SOLOSTAR 100 UNITS/ML 3 ML PEN SC SCH (09:08)
[2021-02-14] MEDS: ASPIRIN 81 MG ECTAB PO SCH (09:08)
[2021-02-14] MEDS: METOPROLOL SUCC 25MG EXT REL TAB PO SCH (09:08)
[2021-02-14] MEDS: INSULIN ASPART PER UNIT SC SCH ×4 (09:09→21:06)
[2021-02-14] MEDS: ENOXAPARIN INJ 30 MG/0.3 ML SYR SQ SCH (09:09)
[2021-02-14] MEDS: TAMSULOSIN HCL 0.4 MG CAP PO SCH (09:09)
[2021-02-14 09:35] LABS: BUN Creatinine Ratio 21.2 (10-20); Creatinine Clr Calc Pharmacy 56.6 ml/min; Est GFR (African American) 88.4 ml/min; Est GFR (Non-African American) 76.3 ml/min; Potassium 3.9 mmol/L (3.5-5.1)
[2021-02-14] MEDS ORDERED: VANCOMYCIN CONSULT ACTIVE PRN (15:49)
--- NOTE | 2021-02-14 15:52 | Pharmacy Report ---
Pharmacy Vanc AUC Short Note - Date of Service February 14, 2021 - Assessment & Plan Assessment 80 year old M receiving vancomycin/cefepime for treatment of UTI/penile infection. Pertinent microbiologic data includes: urine culture growing enterococcus and penis culture growing Staph species and Gram negative shree. Day # 1 of antimicrobial therapy. Plan Vancomycin * AUC/JULIEN is the preferred PK/PD target for vancomycin * AUC guided dosing is effective and associated with decreased risk of nephrotoxicity compared to traditional trough targets * vancomycin 1000 mg IV q18h predicted to achieve target AUC/JULIEN of 400-600 mg/L.hr and may be associated with a 10 % risk of nephrotoxicity * Trough to be ordered if therapy continued beyond three days --- Potential for de-escalation with sensitivities Pharmacy will continue to follow and will adjust dose/frequency as necessary. Thank you.
[2021-02-14] MEDS ORDERED: VANCOMYCIN HCL 1,500 MG in SODIUM CHLORIDE 0.9% 500 ML IV ONE (16:00)
--- NOTE | 2021-02-14 19:02 | Hospitalist Progress Note ---
Date of Service February 14, 2021 Assessment & Plan (1) Urinary tract infection: Plan: Present on admission after noted burning pain in drainage with lower abdominal pain CT abdomen and pelvis on admission showed no acute intra-abdominal or intrapelvic abnormality, no Colonic diverticulosis without acute diverticulitis. UA on admission was positive for leukocyte and WBC Received IV ceftriaxone on admission Bautista catheter changed in the ER He was started on IV cefepime Urine culture grew Enterococcus species Culture from the penis drainage grew staph species and gram-negative bacilli IV Vanco was adding today and continue IV cefepime We will follow urine sensitivity Continue monitor closely Urinary retention Bautista cath was placed during last admission Continue Flomax Outpatient follow-up with urology History of tachybrady syndrome status post pacemaker. Stable Dementia Has been very calm with no abnormal behavior and agitation noted Continue quetiapine 12.5 mg twice daily Continue monitor closely History of severe aortic regurgitation. Recent Cardiology visit recommended nonsurgical medical management. Diabetes. Most recent hemoglobin A1c 7.1 Continue to hold outpatient diabetic med On Lantus and NovoLog sliding scale Continue monitor BS History of coronary artery disease status post drug-eluting stents to LAD. Continue aspirin, statin, metoprolol and losartan Hyperlipidemia: Continue statin. Hypertension: BP stable currently Continue his home medication of losartan, metoprolol, amlodipine and Imdur. History of anemia Hemoglobin dropped to 10.8 with baseline between 12 and 13 No active signs of bleeding Continue monitor CBC History of thrombocytopenia Plt stable at 178 Deep venous thrombosis prophylaxis: on Lovenox. CODE STATUS DNR Disposition We will discharge once medically stable Admission and Anticipated Discharge Date Admission Date: February 13, 2021 Subjective Patient was seen and examined for follow-up of UTI Lying in bed with no acute distress He has been calm with no abnormal behavior or agitation Nurse said he slept for most of the day Review of Systems Review of Systems: All systems reviewed & are unremarkable except as noted in Subjective Physical Exam Physical Exam: General- No acute distress Head- atraumatic Eyes- PERRL, EOMI, ENT- oropharynx clear Neck- supple, no JVD Lungs- clear to auscultation Heart- regular rhythm; no murmur Abdomen- normal bowel sounds, soft, nontender Extremities- no calf tenderness Neuro- alert, PERRL, EOMI; no facial palsy; no dysarthria Skin- warm & dry Results & Data Results & Data ([facility]) Vital Signs (Past 12 Hours) Vital Signs Pulse Resp BP Pulse Ox 02/14/21 14:34 66 18 155/60 H 97
--- NOTE | 2021-02-15 02:17 | Communication Note ---
Date of Service: February 13, 2021 Patient was seen and examined for follow-up of UTI. Lying in bed with no acute distress. Nurse said patient did not eat much today. CT abdomen pelvis showed no acute intra-abdominal or intrapelvic abnormality. Colonic diverticulosis without acute diverticulitis.Small periumbilical hernia contains mesenteric fat and a nonobstructed loop of ileum. Ectasia of the infrarenal abdominal aorta measures 2.9 cm. Blood culture and urine culture collected on admission. Continue IV cefepime. Continue monitor closely. MD Emili
[2021-02-15] MEDS: CEFEPIME 2,000 MG in SYRINGE 0 ML IV SCH (04:00)
[2021-02-15 06:37] LABS: Hemoglobin 11.7 g/dL (14.0-18.0); Mean Corpuscular Hemoglobin 32.2 pg (25-34); Mean Corpuscular Hgb Conc 34.4 g/dL (32-36); Mean Corpuscular Volume 93.7 fL (80-100); Mean Platelet Volume 10.7 fL (7.4-10.4); Platelet Count 174 K/uL (130-400); RDW Coefficient of Variation 12.9 % (11.5-14.5); RDW Standard Deviation 44.2 fL (36.4-46.3); Red Blood Count 3.63 M/uL (4.7-6.1); White Blood Count 7.26 K/uL (4.8-10.8)
[2021-02-15 07:11] LABS: BUN Creatinine Ratio 15.6 (10-20); Calcium 9.1 mg/dl (8.5-10.1); Creatinine Clr Calc Pharmacy 54.8 ml/min; Est GFR (African American) 85.1 ml/min; Est GFR (Non-African American) 73.4 ml/min
[2021-02-15] MEDS: INSULIN GLARGINE SOLOSTAR 100 UNITS/ML 3 ML PEN SC SCH (08:55)
[2021-02-15] MEDS: INSULIN ASPART PER UNIT SC SCH ×4 (08:55→21:14)
[2021-02-15] MEDS: ISOSORBIDE MONO EXTENDED REL 60 MG TABCR PO SCH (08:56)
[2021-02-15] MEDS: VANCOMYCIN HCL 1,000 MG in SODIUM CHLORIDE 0.9% 250 ML IV SCH (08:56)
[2021-02-15] MEDS: QUEtiapine FUMARATE 25 MG TABLET PO SCH ×2 (08:56→18:17)
[2021-02-15] MEDS: METOPROLOL SUCC 25MG EXT REL TAB PO SCH (08:56)
[2021-02-15] MEDS: LOSARTAN POTASSIUM 50 MG TAB PO SCH (08:56)
[2021-02-15] MEDS: TAMSULOSIN HCL 0.4 MG CAP PO SCH (08:56)
[2021-02-15] MEDS: amLODIPine BESYLATE 5 MG TAB PO SCH (08:57)
[2021-02-15] MEDS: ASPIRIN 81 MG ECTAB PO SCH (08:57)
[2021-02-15] MEDS: ENOXAPARIN INJ 30 MG/0.3 ML SYR SQ SCH (08:57)
[2021-02-15] MEDS: ATORVASTATIN 40 MG TAB PO SCH (08:57)
--- NOTE | 2021-02-15 17:04 | Hospitalist Progress Note ---
Date of Service February 15, 2021 Assessment & Plan (1) Urinary tract infection: Plan: Present on admission after noted burning pain in drainage with lower abdominal pain CT abdomen and pelvis on admission showed no acute intra-abdominal or intrapelvic abnormality, no Colonic diverticulosis without acute diverticulitis. UA on admission was positive for leukocyte and WBC Received IV ceftriaxone on admission Bautista catheter changed in the ER He was started on IV cefepime Urine culture grew Enterococcus species-Pansensitive Culture from the penis drainage grew staph species -MSSA IV Vanco was adding today and continue IV cefepime Patient remains afebrile and white count is normal We will try oral Augmentin-given the history of penicillin allergy with only 2 swelling and itchy but no evidence of respiratory symptoms and or throat swell ing or rash Urinary retention Bautista cath was placed during last admission Continue Flomax Outpatient follow-up with urology History of tachybrady syndrome status post pacemaker. Stable Dementia Has been very calm with no abnormal behavior and agitation noted Continue quetiapine 12.5 mg twice daily Continue monitor closely Answering with yes or no in short sentences History of severe aortic regurgitation. Recent Cardiology visit recommended nonsurgical medical management. Diabetes. Most recent hemoglobin A1c 7.1 Continue to hold outpatient diabetic med On Lantus and NovoLog sliding scale Continue monitor BS History of coronary artery disease status post drug-eluting stents to LAD. Continue aspirin, statin, metoprolol and losartan Hyperlipidemia: Continue statin. Hypertension: BP stable currently Continue his home medication of losartan, metoprolol, amlodipine and Imdur. History of anemia Hemoglobin dropped to 10.8 with baseline between 12 and 13 No active signs of bleeding Continue monitor CBC History of thrombocytopenia Plt stable at 178 Deep venous thrombosis prophylaxis: on Lovenox. CODE STATUS DNR Disposition Awaiting acceptance Admission and Anticipated Discharge Date Admission Date: February 13, 2021 Subjective 02/15/2021 The patient was seen and examined in medical floor He has dementia and gives short answers with yes or no most of the time He is out of bed on a chair and doesn't have any acute distress Review of Systems Review of Systems: Unobtainable due to cognitive status Physical Exam Physical Exam: Sitting on a chair without any acute distress Constitutional: well developed, well nourished, + ill appearing and average body habitus Eyes: PERRL, conjunctivae normal, anicteric sclerae ENMT: external ear and nose normal, oropharynx normal Neck: trachea midline, no thyromegaly Respiratory: no respiratory distress Auscultation: + diminished lung soun ds; no crackles and no wheezes Cardiovascular: Rate/Rhythm: regular rate and regular rhythm; not tachycardic Heart Sounds: normal S1 and normal S2; no murmur Extremities: no edema Gastrointestinal (Abdomen): Inspection/Auscultation: normal bowel sounds; abdomen not distended Percussion/Palpation: abdomen soft; abdomen nontender Musculoskeletal: No acute arthritis in any joint Neurologic: Alert and awake. Has dementia and gives short answers with yes or no only. Generally weak Results & Data Results & Data ([facility]) Vital Signs (Past 12 Hours) Vital Signs Pulse Resp BP Pulse Ox 02/15/21 16:48 76 16 137/58 L 97 02/15/21 08:27 92 H 16 197/61 H 97 Laboratory Results Short CBC 02/15/21 Range/Units 06:16 WBC 7.26 (4.8-10.8) K/uL Hgb 11.7 L (14.0-18.0) g/dL Hct 34.0 L (42-52) % Plt Count 174 (130-400) K/uL BMP 02/15/21 06:16 Sodium 141 Potassium 4.0 Chloride 109 H Carbon Dioxide 26 BUN 15 Creatinine 0.97 Glucose 123 H Calcium 9.1 Medications Administered Current Inpatient Medications Acetaminophen (Acetaminophen 325 Mg Tab) 650 mg PO Q4H PRN PRN Reason: pain/fever Stop: 03/15/21 06:11 Amlodipine Besylate (Amlodipine Besylate 5 Mg Tab) 5 mg PO DAILY [facility] Stop: 03/15/21 08:59 Last Admin: 02/15/21 08:57 Dose: 5 mg Documented by: Aspirin (Aspirin 81 Mg Ectab) 81 mg PO DAILY [facility] Stop: 03/15/21 08:59 Last Admin: 02/15/21 08:57 Dose: 81 mg Documented by: Atorvastatin Calcium (Atorvastatin 40 Mg Tab) 80 mg PO DAILY [facility] Stop: 03/15/21 08:59 Last Admin: 02/15/21 08:57 Dose: 80 mg Documented by: Dextrose (Dextrose 50% 50 Ml Syringe) 25 - 50 ml IV UD PRN; Protocol PRN Reason: Hypoglycemia Protocol Stop: 03/15/21 06:11 Enoxaparin Sodium (Enoxaparin Inj 30 Mg/0.3 Ml Syr) 30 mg SQ QAM [facility] Stop: 03/15/21 08:59 Last Admin: 02/15/21 08:57 Dose: 30 mg Documented by: Glucagon (Glucagon For Inj 1 Mg Vial) 1 mg SQ UD PRN; Protocol PRN Reason: Hypoglycemia Protocol Stop: 03/15/21 06:11 Glucose (Glucose 10 Tabs/Tube) 4 - 8 tabs PO UD PRN; Protocol PRN Reason: Hypoglycemia Protocol Stop: 03/15/21 06:11 Glucose (Glucose 40% Gel 15 Gm Tube) 15 - 30 gm PO UD PRN; Protocol PRN Reason: Hypoglycemia Protocol Stop: 03/15/21 06:11 Promethazine HCl 12.5 mg/ (Sodium Chloride) 50.5 mls @ 202 mls/hr IV Q6H PRN PRN Reason: Nausea And Vomiting Stop: 03/15/21 06:11 Cefepime HCl 2,000 mg/ Syringe 20 mls @ 5 mls/min IV Q24H [facility]; Protocol Stop: 02/24/21 03:59 Last Admin: 02/15/21 04:00 Dose: 5 mls/min Documented by: Vancomycin HCl 1,000 mg/ (Sodium Chloride) 270 mls @ 200 mls/hr IV Q18H [facility] Stop: 02/25/21 09:59 Last Infusion: 02/15/21 10:21 Dose: Infused Documented by: Insulin Aspart (Insulin Aspart Per Unit) 0 units SC ACHS [facility] Stop: 03/15/21 07:29 Last Admin: 02/15/21 12:52 Dose: 5 units Documented by: Insulin Glargine (Insulin Glargine Solostar 100 Units/Ml 3 Ml Pen) 5 units SC DAILY [facility] Stop: 03/15/21 08:59 Last Admin: 02/15/21 08:55 Dose: 5 units Documented by: Isosorbide Mononitrate (Isosorbide [place] Extended Rel 60 Mg Tabcr) 60 mg PO QAM [facility] Stop: 03/15/21 08:59 Last Admin: 02/15/21 08:56 Dose: 60 mg Documented by: Ketorolac Tromethamine (Ketorolac Tromethamine 15 Mg/Ml Vial) 15 mg IV Q6H PRN PRN Reason: Pain Stop: 02/18/21 06:11 Losartan Potassium (Losartan Potassium 50 Mg Tab) 100 mg PO DAILY [facility] Stop: 03/15/21 08:59 Last Admin: 02/15/21 08:56 Dose: 100 mg Documented by: Metoprolol Succinate (Metoprolol Succ 25mg Ext Rel Tab) 12.5 mg PO DAILY [facility] Stop: 03/15/21 08:59 Last Admin: 02/15/21 08:56 Dose: 12.5 mg Documented by: Miscellaneous (Carbohydrates For Hypoglycemia ) 15 - 30 gm PO UD PRN PRN Reason: Hypoglycemia Protocol Stop: 03/15/21 06:11 Miscellaneous Information (Vancomycin Consult Active) 1 ea N/A UD PRN PRN Reason: Consult Stop: 03/16/21 15:48 Olanzapine (Olanzapine 10 Mg/2.1 Ml Sdv) 2.5 mg IM Q4H PRN PRN Reason: Anxiety/Agitation Stop: 03/15/21 06:11 Quetiapine Fumarate (Quetiapine Fumarate 25 Mg Tablet) 12.5 mg PO BID@0900,1900 [facility] Stop: 03/15/21 08:59 Last Admin: 02/15/21 08:56 Dose: 12.5 mg Documented by: Tamsulosin HCl (Tamsulosin Hcl 0.4 Mg Cap) 0.4 mg PO QAM [facility] Stop: 03/15/21 08:59 Last Admin: 02/15/21 08:56 Dose: 0.4 mg Documented by:
[2021-02-16] MEDS: VANCOMYCIN HCL 1,000 MG in SODIUM CHLORIDE 0.9% 250 ML IV SCH (04:12)
[2021-02-16] MEDS: CEFEPIME 2,000 MG in SYRINGE 0 ML IV SCH (04:12)
[2021-02-16] MEDS: LOSARTAN POTASSIUM 50 MG TAB PO SCH (08:32)
[2021-02-16] MEDS: QUEtiapine FUMARATE 25 MG TABLET PO SCH ×2 (08:32→17:50)
[2021-02-16] MEDS: TAMSULOSIN HCL 0.4 MG CAP PO SCH (08:33)
[2021-02-16] MEDS: ASPIRIN 81 MG ECTAB PO SCH (08:33)
[2021-02-16] MEDS: ISOSORBIDE MONO EXTENDED REL 60 MG TABCR PO SCH (08:33)
[2021-02-16] MEDS: ATORVASTATIN 40 MG TAB PO SCH (08:33)
[2021-02-16] MEDS: amLODIPine BESYLATE 5 MG TAB PO SCH (08:33)
[2021-02-16] MEDS: METOPROLOL SUCC 25MG EXT REL TAB PO SCH (08:37)
[2021-02-16] MEDS: INSULIN ASPART PER UNIT SC SCH ×4 (09:01→20:40)
[2021-02-16] MEDS: INSULIN GLARGINE SOLOSTAR 100 UNITS/ML 3 ML PEN SC SCH (09:02)
[2021-02-16] MEDS: ENOXAPARIN INJ 30 MG/0.3 ML SYR SQ SCH (10:05)
[2021-02-16 14:26] LABS: Creatinine Clr Calc Pharmacy 39.7 ml/min; Est GFR (African American) 57.6 ml/min; Est GFR (Non-African American) 49.7 ml/min
--- NOTE | 2021-02-16 16:16 | Hospitalist Progress Note ---
Date of Service February 16, 2021 Assessment & Plan (1) Urinary tract infection: Plan: Present on admission - noted purulent penile drainage and lower abdominal pain Admission CT ABD/pelvis unremarkable for acute findings UA suggestive of UTI On IV cefepime (day 3) Urine culture grew Enterococcus species-Pansensitive Culture from the penis drainage grew MSSA Vanco added (day 2) Remains afebrile, hemodynamically stable Transition to p.o. Augmentin today (PCN allergy noted -no history of anaphylaxis, has tolerated cefepime and ceftriaxone) Urinary retention Bautista cathwas placed during last admission -changed on 02/13 Continue Flomax Outpatient follow-up with urology History of tachybrady syndrome S/p pacemaker, no acute issues Dementia Irritable however not agitated. Answers yes/no or in short sentences. Continue quetiapine 12.5 mg twice daily History of severe aortic regurgitation Recent Cardiology visit recommended nonsurgical medical management. Diabetes Most recent hemoglobin A1c 7.1 Hold oral agents and utilize Lantus and NovoLog per protocol while hospitalized History of coronary artery disease S/p BRANDI to LAD Continue aspirin, statin, metoprolol, isosorbide, and losartan Hypertension BP stable currently Continue his home medication of losartan, metoprolol, amlodipine and Imdur. History of anemia No active signs of bleeding Hgb stable History of thrombocytopenia Platelets stable DVT prophylaxis: SQ Lovenox Dispo: Pending, awaiting placement to [place] care Admission and Anticipated Discharge Date Admission Date: February 13, 2021 Supervising Physician Co-Signing Physician Notes Attending addendum The patient was seen and examined in medical floor He remains stable Remains very lethargic and does not want to talk much On examination Lying in bed comfortably Hemodynamically stable Chest-decreased breath sounds but otherwise clear Heart-S1-S2, regular Abdomen-benign Extremities-negative for any edema His labs and imaging studies reviewed Agree with assessment and plan as outlined above by Pamela Napier Subjective Patient seen and examined. Follow-up for UTI. Patient irritable, answers with short yes or no answers. Does not appear to be in any acute distress. Offers no complaints. Review of Systems Review of Systems: Unobtainable due to cognitive status Physical Exam Constitutional: WD/WN, vitals as above no acute distress Respiratory: normal respiratory effort, lungs clear to auscultation Cardiovascular: Rate/Rhythm: regular rate and regular rhythm Vessels: normal peripheral pulses Extremities: no edema Gastrointestinal (Abdomen): Percussion/Palpation: abdomen soft; abdomen nontender Skin: no rashes, warm and dry Neurologic: no focal motor deficits Psychiatric: Orientation: alert and oriented to person Affect: + irritable affect Genitourinary: Bautista in place draining clear yellow urine Results & Data Results & Data ([facility]) Vital Signs (Past 12 Hours) Vital Signs Pulse Resp BP Pulse Ox 02/16/21 15:15 67 18 123/50 L 97 02/16/21 08:36 73 159/61 H 02/16/21 08:00 71 18 134/52 L 96 Laboratory Results BMP 02/16/21 13:41 Creatinine 1.34 D
[2021-02-16] MEDS: AMOXICILLIN/CLAVULANATE 875 MG TAB PO SCH (17:50)
[2021-02-17 07:03] LABS: Creatinine Clr Calc Pharmacy 40.9 ml/min; Est GFR (African American) 59.7 ml/min; Est GFR (Non-African American) 51.5 ml/min
[2021-02-17] MEDS: TAMSULOSIN HCL 0.4 MG CAP PO SCH (08:56)
[2021-02-17] MEDS: QUEtiapine FUMARATE 25 MG TABLET PO SCH ×2 (08:56→20:12)
[2021-02-17] MEDS: ASPIRIN 81 MG ECTAB PO SCH (08:57)
[2021-02-17] MEDS: METOPROLOL SUCC 25MG EXT REL TAB PO SCH (08:57)
[2021-02-17] MEDS: amLODIPine BESYLATE 5 MG TAB PO SCH (08:57)
[2021-02-17] MEDS: ATORVASTATIN 40 MG TAB PO SCH (08:57)
[2021-02-17] MEDS: LOSARTAN POTASSIUM 50 MG TAB PO SCH (08:57)
[2021-02-17] MEDS: ISOSORBIDE MONO EXTENDED REL 60 MG TABCR PO SCH (08:57)
[2021-02-17] MEDS: ENOXAPARIN INJ 30 MG/0.3 ML SYR SQ SCH (08:58)
[2021-02-17] MEDS: INSULIN GLARGINE SOLOSTAR 100 UNITS/ML 3 ML PEN SC SCH (08:58)
[2021-02-17] MEDS: AMOXICILLIN/CLAVULANATE 875 MG TAB PO SCH ×2 (08:58→17:50)
[2021-02-17] MEDS: INSULIN ASPART PER UNIT SC SCH ×4 (09:01→21:11)
--- NOTE | 2021-02-17 13:34 | Hospitalist Progress Note ---
Date of Service February 17, 2021 Assessment & Plan (1) Urinary tract infection: Plan: CAUTI Present on admission - noted purulent penile drainage and lower abdominal pain Admission CT ABD/pelvis unremarkable for acute findings Urine culture grew Enterococcus species-Pansensitive Culture from the penis drainage grew MSSA Cefepime (02/13 -02/16), Vanco (02/15-02/16) Transitioned to p.o. Augmentin on 02/16 (PCN allergy noted -no history of anaphylaxis, has tolerated cefepime and ceftriaxone, tolerating Augmentin without problem) Remains afebrile, hemodynamically stable Urinary retention Bautista cathwas placed during last admission -changed on 02/13 Continue Flomax Outpatient follow-up with urology Metabolic encephalopathy Treated and resolved History of tachybrady syndrome S/p pacemaker, no acute issues Dementia Irritable however not agitated. Answers yes/no or in short sentences. Continue quetiapine 12.5 mg twice daily History of severe aortic regurgitation Recent Cardiology visit recommended nonsurgical medical management. Diabetes Most recent hemoglobin A1c 7.1 Hold oral agents and utilize Lantus and NovoLog per protocol while hospitalized History of coronary artery disease S/p BRANDI to LAD Continue aspirin, statin, metoprolol, isosorbide, and losartan Hypertension BP stable currently Continue his home medication of losartan, metoprolol, amlodipine and Imdur. History of anemia No active signs of bleeding Hgb stable History of thrombocytopenia Platelets stable DVT prophylaxis: SQ Lovenox Dispo: Pending, awaiting possible placement to [facility]. Caity updated via telephone. Admission and Anticipated Discharge Date Admission Date: February 13, 2021 Supervising Physician Co-Signing Physician Notes Attending addendum; The patient was seen and examined in medical floor He has been much better today and has been answering questions No significant distress at rest On examination Lying in bed comfortably Hemodynamically stable Chest-decreased breath sounds with minimal bibasilar crackles Heart-S1-S2, regular Abdomen-benign His labs and imaging studies reviewed Remains medically stable Agree with assessment and plan as outlined above by Pamela Napier Subjective Patient seen and examined. Follow-up for UTI. Patient confused however pleasant. Offers no complaints, does not appear to be in any acute distress. Review of Systems Review of Systems: Unobtainable due to cognitive status Physical Exam Constitutional: WD/WN, vitals as above Respiratory: normal respiratory effort, lungs clear to auscultation Cardiovascular: Rate/Rhythm: regular rate and regular rhythm Vessels: normal peripheral pulses Extremities: no edema Gastrointestinal (Abdomen): Percussion/Palpation: abdomen soft; abdomen nontender Skin: no rashes, warm and dry Neurologic: no focal motor deficits Psychiatric: Orientation: alert, oriented to person and cooperative; + not oriented to place and + not oriented to time Genitourinary: Bautista in place draining clear yellow urine Results & Data Results & Data ([facility]) Vital Signs (Past 12 Hours) Vital Signs Temp Pulse Resp BP Pulse Ox 02/17/21 07:33 36.6 C 81 16 158/55 H 93 Laboratory Results BMP 02/17/21 06:04 Creatinine 1.30
[2021-02-17] MEDS ORDERED: VANCOMYCIN TROUGH ONE (15:30)
[2021-02-18] MEDS: INSULIN ASPART PER UNIT SC SCH ×4 (08:58→22:01)
[2021-02-18] MEDS: amLODIPine BESYLATE 5 MG TAB PO SCH (08:59)
[2021-02-18] MEDS: ASPIRIN 81 MG ECTAB PO SCH (09:00)
[2021-02-18] MEDS: AMOXICILLIN/CLAVULANATE 875 MG TAB PO SCH ×2 (09:00→18:26)
[2021-02-18] MEDS: ATORVASTATIN 40 MG TAB PO SCH (09:01)
[2021-02-18] MEDS: ENOXAPARIN INJ 30 MG/0.3 ML SYR SQ SCH (09:01)
[2021-02-18] MEDS: TAMSULOSIN HCL 0.4 MG CAP PO SCH (09:02)
[2021-02-18] MEDS: QUEtiapine FUMARATE 25 MG TABLET PO SCH ×2 (09:02→18:31)
[2021-02-18] MEDS: LOSARTAN POTASSIUM 50 MG TAB PO SCH (09:03)
[2021-02-18] MEDS: METOPROLOL SUCC 25MG EXT REL TAB PO SCH (09:03)
[2021-02-18] MEDS: ISOSORBIDE MONO EXTENDED REL 60 MG TABCR PO SCH (09:04)
[2021-02-18] MEDS: INSULIN GLARGINE SOLOSTAR 100 UNITS/ML 3 ML PEN SC SCH (09:13)
--- NOTE | 2021-02-18 17:14 | Hospitalist Progress Note ---
Date of Service February 18, 2021 Assessment & Plan (1) Urinary tract infection: Plan: CAUTI Present on admission - noted purulent penile drainage and lower abdominal pain Admission CT ABD/pelvis unremarkable for acute findings Urine culture grew Enterococcus species-Pansensitive Culture from the penis drainage grew MSSA Cefepime (02/13 -02/16), Vanco (02/15-02/16) Transitioned to p.o. Augmentin on 02/16 (PCN allergy noted -no history of anaphylaxis, has tolerated cefepime and ceftriaxone, tolerating Augmentin without problem) Remains afebrile, hemodynamically stable Urinary retention Bautista cathwas placed during last admission -changed on 02/13 Continue Flomax Outpatient follow-up with urology Metabolic encephalopathy Treated and resolved History of tachybrady syndrome S/p pacemaker, no acute issues Dementia Irritable however not agitated. Answers yes/no or in short sentences Continue quetiapine 12.5 mg twice daily History of severe aortic regurgitation Recent Cardiology visit recommended nonsurgical medical management Diabetes Most recent hemoglobin A1c 7.1 Hold oral agents and utilize Lantus and NovoLog per protocol while hospitalized History of coronary artery disease S/p BRANDI to LAD Continue aspirin, statin, metoprolol, isosorbide, and losartan Hypertension BP stable currently Continue his home medication of losartan, metoprolol, amlodipine and Imdur History of anemia No active signs of bleeding Hgb stable History of thrombocytopenia Platelets stable DVT prophylaxis: SQ Lovenox Dispo: Pending, awaiting possible placement to [place] [facility] Admission and Anticipated Discharge Date Admission Date: February 13, 2021 Supervising Physician Co-Signing Physician Notes Attending addendum The patient was seen and examined in medical floor in presence of the He remains stable Has not been aggressive any time Been waiting to be placed On examination Hemodynamically stable With clear chest, heart-S1-S2 regular Abdomen-benign Extremities-negative His current medications, labs reviewed Remains medically stable with dementia and complicated UTI Agree with assessment and plan as outlined above by SOPHIE Guillermo Dr Subjective Patient seen and examined. Follow-up for UTI. Patient confused however pleasant. Offers no complaints, does not appear to be in any acute distress. Resting comfortably. Review of Systems Review of Systems: Unobtainable due to cognitive status Physical Exam Physical Exam: Gen: WD/WN, NAD, sitting in bedside chair, A&Ox1 HEENT: Normocephalic, atraumatic, conjunctivae moist, sclerae anicteric, mucous membranes moist Lung: Clear to auscultation bilaterally, no wheezes/rales/rhonchi Heart: Regular rate, regular rhythm, +systolic murmur, rubs, or gallops Abdomen: Soft, NT, ND +BS x 4 : Bautista catheter in place Extremities: no edema Skin: Warm, no rash Results & Data Results & Data ([facility]) Vital Signs (Past 12 Hours) Vital Signs Temp Pulse Resp BP Pulse Ox 02/18/21 16:58 36.4 C L 68 16 161/57 H 97 02/18/21 07:22 36.4 C L 69 16 132/52 L 97
[2021-02-18] MEDS: DOCUSATE SODIUM 100 MG CAP PO SCH (22:02)
[2021-02-19] MEDS: AMOXICILLIN/CLAVULANATE 875 MG TAB PO SCH ×2 (09:02→18:41)
[2021-02-19] MEDS: ATORVASTATIN 40 MG TAB PO SCH (09:02)
[2021-02-19] MEDS: QUEtiapine FUMARATE 25 MG TABLET PO SCH ×2 (09:02→18:41)
[2021-02-19] MEDS: ASPIRIN 81 MG ECTAB PO SCH (09:02)
[2021-02-19] MEDS: LOSARTAN POTASSIUM 50 MG TAB PO SCH (09:02)
[2021-02-19] MEDS: TAMSULOSIN HCL 0.4 MG CAP PO SCH (09:02)
[2021-02-19] MEDS: ISOSORBIDE MONO EXTENDED REL 60 MG TABCR PO SCH (09:03)
[2021-02-19] MEDS: amLODIPine BESYLATE 5 MG TAB PO SCH (09:03)
[2021-02-19] MEDS: DOCUSATE SODIUM 100 MG CAP PO SCH (09:03)
[2021-02-19] MEDS: METOPROLOL SUCC 25MG EXT REL TAB PO SCH (09:22)
[2021-02-19] MEDS: INSULIN ASPART PER UNIT SC SCH ×4 (10:17→21:35)
[2021-02-19] MEDS: INSULIN GLARGINE SOLOSTAR 100 UNITS/ML 3 ML PEN SC SCH (10:18)
[2021-02-19] MEDS: ENOXAPARIN INJ 30 MG/0.3 ML SYR SQ SCH (10:19)
--- NOTE | 2021-02-19 14:26 | Hospitalist Progress Note ---
Date of Service February 19, 2021 Assessment & Plan (1) Urinary tract infection: Plan: CAUTI Present on admission - noted purulent penile drainage and lower abdominal pain Admission CT ABD/pelvis unremarkable for acute findings Urine culture grew Enterococcus species-Pansensitive Culture from the penis drainage grew MSSA Cefepime (02/13 -02/16), Vanco (02/15-02/16) Transitioned to p.o. Augmentin on 02/16 (PCN allergy noted -no history of anaphylaxis, has tolerated cefepime and ceftriaxone, tolerating Augmentin without problem) Remains afebrile, hemodynamically stable Urinary retention Bautista cathwas placed during last admission -changed on 02/13 Continue Flomax Outpatient follow-up with urology Metabolic encephalopathy Treated and resolved History of tachybrady syndrome S/p pacemaker, no acute issues Dementia Irritable however not agitated. Answers yes/no or in short sentences Continue quetiapine 12.5 mg twice daily History of severe aortic regurgitation Recent Cardiology visit recommended nonsurgical medical management Diabetes Most recent hemoglobin A1c 7.1 Hold oral agents and utilize Lantus and NovoLog per protocol while hospitalized History of coronary artery disease S/p BRANDI to LAD Continue aspirin, statin, metoprolol, isosorbide, and losartan Hypertension BP stable currently Continue his home medication of losartan, metoprolol, amlodipine and Imdur History of anemia No active signs of bleeding Hgb stable History of thrombocytopenia Platelets stable DVT prophylaxis: SQ Lovenox Dispo: Pending, awaiting possible placement to [facility]. Caity updated over the phone. Admission and Anticipated Discharge Date Admission Date: February 13, 2021 Supervising Physician Co-Signing Physician Notes Attending addendum The patient was seen and examined in medical floor He remained stable and looks much better today Denies any symptoms On examination Sitting on a chair without any distress Hemodynamically stable His medications, labs and imaging studies reviewed Remains medically stable to be transferred Agree with assessment and plan as outlined above by SOPHIE Guillermo Dr Subjective Patient seen and examined in follow-up for UTI. Patient confused however pleasant. Sitting in bedside chair. Offers no complaints, does not appear to be in any acute distress. Unable to obtain ROS secondary to cognitive status. Review of Systems Review of Systems: Unobtainable due to cognitive status Physical Exam Physical Exam: Gen: WD/WN, NAD, sitting in bedside chair, A&Ox1, pleasantly confused HEENT: Normocephalic, atraumatic, conjunctivae moist, sclerae anicteric, mucous membranes moist Lung: Clear to auscultation bilaterally, no wheezes/rales/rhonchi Heart: Regular rate, regular rhythm, +systolic murmur, rubs, or gallops Abdomen: Soft, NT, ND +BS x 4 : Bautista catheter in place Extremities: no edema Skin: Warm, no rash Results & Data Results & Data ([facility]) Vital Signs (Past 12 Hours) Vital Signs Temp Pulse Resp BP BP Pulse Ox 02/19/21 12:51 36.3 C L 70 16 120/60 97 02/19/21 07:59 37.0 C 46 L 17 138/84 96
[2021-02-19] MEDS ORDERED: SODIUM CHLORIDE 0.9% 500 ML IV SCH (18:00)
[2021-02-19] MEDS: DOCUSATE SODIUM SYRUP 100 MG/10 ML UDC PO SCH (22:52)
[2021-02-20] MEDS: INSULIN ASPART PER UNIT SC SCH ×4 (09:28→21:16)
[2021-02-20] MEDS: AMOXICILLIN/CLAVULANATE 875 MG TAB PO SCH ×2 (09:29→17:55)
[2021-02-20] MEDS: ASPIRIN 81 MG ECTAB PO SCH (10:02)
[2021-02-20] MEDS: METOPROLOL SUCC 25MG EXT REL TAB PO SCH (10:03)
[2021-02-20] MEDS: ATORVASTATIN 40 MG TAB PO SCH (10:03)
[2021-02-20] MEDS: ENOXAPARIN INJ 30 MG/0.3 ML SYR SQ SCH (10:04)
[2021-02-20] MEDS: LOSARTAN POTASSIUM 50 MG TAB PO SCH (10:05)
[2021-02-20] MEDS: DOCUSATE SODIUM SYRUP 100 MG/10 ML UDC PO SCH ×2 (10:05→21:02)
[2021-02-20] MEDS: TAMSULOSIN HCL 0.4 MG CAP PO SCH (10:06)
[2021-02-20] MEDS: QUEtiapine FUMARATE 25 MG TABLET PO SCH ×2 (10:06→17:56)
[2021-02-20] MEDS: INSULIN GLARGINE SOLOSTAR 100 UNITS/ML 3 ML PEN SC SCH (10:08)
[2021-02-20] MEDS: ISOSORBIDE MONO EXTENDED REL 60 MG TABCR PO SCH (10:12)
[2021-02-20] MEDS: amLODIPine BESYLATE 5 MG TAB PO SCH (10:28)
--- NOTE | 2021-02-20 13:12 | Hospitalist Progress Note ---
Date of Service February 20, 2021 Assessment & Plan (1) Urinary tract infection: Plan: CAUTI Present on admission - noted purulent penile drainage and lower abdominal pain Admission CT ABD/pelvis unremarkable for acute findings Urine culture grew Enterococcus species-Pansensitive Culture from the penis drainage grew MSSA Cefepime (02/13 -02/16), Vanco (02/15-02/16) Transitioned to p.o. Augmentin on 02/16 (PCN allergy noted -no history of anaphylaxis, has tolerated cefepime and ceftriaxone, tolerating Augmentin without problem) We will continue antibiotic for a total of 14 days Has chronic Bautista in situ and will change prior to discharge Urinary retention Bautista cathwas placed during last admission -changed on 02/13 Continue Flomax Outpatient follow-up with urology Metabolic encephalopathy Treated and resolved History of tachybrady syndrome S/p pacemaker, no acute issues Dementia Irritable however not agitated. Answers yes/no or in short sentences Continue quetiapine 12.5 mg twice daily History of severe aortic regurgitation Recent Cardiology visit recommended nonsurgical medical management Diabetes Most recent hemoglobin A1c 7.1 Hold oral agents and utilize Lantus and NovoLog per protocol while hospitalized History of coronary artery disease S/p BRANDI to LAD Continue aspirin, statin, metoprolol, isosorbide, and losartan Hypertension BP stable currently Continue his home medication of losartan, metoprolol, amlodipine and Imdur History of anemia No active signs of bleeding Hgb stable History of thrombocytopenia Platelets stable DVT prophylaxis: SQ Lovenox Dispo: Pending, awaiting possible placement to [facility]. Ciaty updated over the phone. Awaiting placement Admission and Anticipated Discharge Date Admission Date: February 13, 2021 Subjective Patient seen and examined in follow-up for UTI. Patient confused however pleasant. Sitting in bedside chair. Offers no complaints, does not appear to be in any acute distress. Unable to obtain ROS secondary to cognitive status. 02/20/2021 The patient was seen and examined in medical floor He remains stable and denies any symptoms Review of Systems Review of Systems: All systems reviewed and are unremarkable except as noted below Musculoskeletal: Weakness Physical Exam Physical Exam: Lying in bed without any acute distress Constitutional: well developed, well nourished, + ill appearing and average body habitus Eyes: PERRL, conjunctivae normal, anicteric sclerae ENMT: external ear and nose normal, oropharynx normal Neck: trachea midline, no thyromegaly Respiratory: no respiratory distress Auscultation: + diminished lung sounds; no crackles and no wheezes Cardiovascular: Rate/Rhythm: regular rate and regular rhythm; not tachycardic Heart Sounds: normal S1 and normal S2; no murmur Extremities: no edema Gastrointestinal (Abdomen): Inspection/Auscultation: normal bowel sounds; abdomen not distended Percussion/Palpation: abdomen soft; abdomen nontender Musculoskeletal: No acute arthritis in any joint Neurologic: Alert and awake. Pleasantly confused with severe dementia. Generally weak Results & Data Results & Data ([facility]) Vital Signs (Past 12 Hours) Vital Signs Temp Pulse Resp BP Pulse Ox 02/20/21 09:42 67 145/51 H 02/20/21 08:12 36.4 C L 60 16 145/74 H 95 Medications Administered Current Inpatient Medications Acetaminophen (Acetaminophen 325 Mg Tab) 650 mg PO Q4H PRN PRN Reason: pain/fever Stop: 03/15/21 06:11 Amlodipine Besylate (Amlodipine Besylate 5 Mg Tab) 5 mg PO DAILY [facility] Stop: 03/15/21 08:59 Last Admin: 02/20/21 10:28 Dose: 5 mg Documented by: Amoxicillin/Clavulanate Potassium (Amoxicillin/Clavulanate 875 Mg Tab) 1 tab PO BIDM [facility]; Protocol Stop: 02/26/21 16:59 Last Admin: 02/20/21 09:29 Dose: 1 tab Documented by: Aspirin (Aspirin 81 Mg Ectab) 81 mg PO DAILY [facility] Stop: 03/15/21 08:59 Last Admin: 02/20/21 10:02 Dose: 81 mg Documented by: Atorvastatin Calcium (Atorvastatin 40 Mg Tab) 80 mg PO DAILY [facility] Stop: 03/15/21 08:59 Last Admin: 02/20/21 10:03 Dose: 80 mg Documented by: Dextrose (Dextrose 50% 50 Ml Syringe) 25 - 50 ml IV UD PRN; Protocol PRN Reason: Hypoglycemia Protocol Stop: 03/15/21 06:11 Docusate Sodium (Docusate Sodium Syrup 100 Mg/10 Ml Udc) 100 mg PO BID [facility] Stop: 03/21/21 20:59 Last Admin: 02/20/21 10:05 Dose: 100 mg Documented by: Enoxaparin Sodium (Enoxaparin Inj 30 Mg/0.3 Ml Syr) 30 mg SQ QAM [facility] Stop: 03/15/21 08:59 Last Admin: 02/20/21 10:04 Dose: 30 mg Documented by: Glucagon (Glucagon For Inj 1 Mg Vial) 1 mg SQ UD PRN; Protocol PRN Reason: Hypoglycemia Protocol Stop: 03/15/21 06:11 Glucose (Glucose 10 Tabs/Tube) 4 - 8 tabs PO UD PRN; Protocol PRN Reason: Hypoglycemia Protocol Stop: 03/15/21 06:11 Glucose (Glucose 40% Gel 15 Gm Tube) 15 - 30 gm PO UD PRN; Protocol PRN Reason: Hypoglycemia Protocol Stop: 03/15/21 06:11 Promethazine HCl 12.5 mg/ (Sodium Chloride) 50.5 mls @ 202 mls/hr IV Q6H PRN PRN Reason: Nausea And Vomiting Stop: 03/15/21 06:11 Insulin Aspart (Insulin Aspart Per Unit) 0 units SC ACHS [facility] Stop: 03/15/21 07:29 Last Admin: 02/20/21 12:44 Dose: 2 units Documented by: Insulin Glargine (Insulin Glargine Solostar 100 Units/Ml 3 Ml Pen) 5 units SC DAILY [facility] Stop: 03/15/21 08:59 Last Admin: 02/20/21 10:08 Dose: 5 units Documented by: Isosorbide Mononitrate (Isosorbide [place] Extended Rel 60 Mg Tabcr) 60 mg PO QAM [facility] Stop: 03/15/21 08:59 Last Admin: 02/20/21 10:12 Dose: 60 mg Documented by: Losartan Potassium (Losartan Potassium 50 Mg Tab) 100 mg PO DAILY [facility] Stop: 03/15/21 08:59 Last Admin: 02/20/21 10:05 Dose: 100 mg Documented by: Metoprolol Succinate (Metoprolol Succ 25mg Ext Rel Tab) 12.5 mg PO DAILY [facility] Stop: 03/15/21 08:59 Last Admin: 02/20/21 10:03 Dose: 12.5 mg Documented by: Miscellaneous (Carbohydrates For Hypoglycemia ) 15 - 30 gm PO UD PRN PRN Reason: Hypoglycemia Protocol Stop: 03/15/21 06:11 Olanzapine (Olanzapine 10 Mg/2.1 Ml Sdv) 2.5 mg IM Q4H PRN PRN Reason: Anxiety/Agitation Stop: 03/15/21 06:11 Quetiapine Fumarate (Quetiapine Fumarate 25 Mg Tablet) 12.5 mg PO BID@0900,1900 [facility] Stop: 03/15/21 08:59 Last Admin: 02/20/21 10:06 Dose: 12.5 mg Documented by: Tamsulosin HCl (Tamsulosin Hcl 0.4 Mg Cap) 0.4 mg PO QAM [facility] Stop: 03/15/21 08:59 Last Admin: 02/20/21 10:06 Dose: 0.4 mg Documented by:
[2021-02-21] MEDS: QUEtiapine FUMARATE 25 MG TABLET PO SCH ×2 (08:24→20:39)
[2021-02-21] MEDS: amLODIPine BESYLATE 5 MG TAB PO SCH (08:25)
[2021-02-21] MEDS: DOCUSATE SODIUM SYRUP 100 MG/10 ML UDC PO SCH ×2 (08:25→20:39)
[2021-02-21] MEDS: ASPIRIN 81 MG ECTAB PO SCH (08:25)
[2021-02-21] MEDS: AMOXICILLIN/CLAVULANATE 875 MG TAB PO SCH ×2 (08:25→17:18)
[2021-02-21] MEDS: ISOSORBIDE MONO EXTENDED REL 60 MG TABCR PO SCH (08:26)
[2021-02-21] MEDS: ENOXAPARIN INJ 30 MG/0.3 ML SYR SQ SCH (08:26)
[2021-02-21] MEDS: LOSARTAN POTASSIUM 50 MG TAB PO SCH (08:27)
[2021-02-21] MEDS: TAMSULOSIN HCL 0.4 MG CAP PO SCH (08:27)
[2021-02-21] MEDS: ATORVASTATIN 40 MG TAB PO SCH (08:27)
[2021-02-21] MEDS: METOPROLOL SUCC 25MG EXT REL TAB PO SCH (08:27)
[2021-02-21] MEDS: INSULIN GLARGINE SOLOSTAR 100 UNITS/ML 3 ML PEN SC SCH (08:28)
[2021-02-21] MEDS: INSULIN ASPART PER UNIT SC SCH ×4 (08:54→20:51)
--- NOTE | 2021-02-21 14:08 | Hospitalist Progress Note ---
Date of Service February 21, 2021 Assessment & Plan (1) Urinary tract infection: Plan: CAUTI Present on admission - noted purulent penile drainage and lower abdominal pain Admission CT ABD/pelvis unremarkable for acute findings Urine culture grew Enterococcus species-Pansensitive Culture from the penis drainage grew MSSA Cefepime (02/13 -02/16), Vanco (02/15-02/16) Transitioned to p.o. Augmentin on 02/16 (PCN allergy noted -no history of anaphylaxis, has tolerated cefepime and ceftriaxone, tolerating Augmentin without problem) We will continue antibiotic for a total of 14 days Has chronic Bautista in situ and will change prior to discharge No fever and/or chills Urinary retention Bautista cathwas placed during last admission -changed on 02/13 Continue Flomax Outpatient follow-up with urology Metabolic encephalopathy Treated and resolved Pleasantly confused but no acute confusion History of tachybrady syndrome S/p pacemaker, no acute issues Dementia Irritable however not agitated. Answers yes/no or in short sentences Continue quetiapine 12.5 mg twice daily History of severe aortic regurgitation Recent Cardiology visit recommended nonsurgical medical management Diabetes Most recent hemoglobin A1c 7.1 Hold oral agents and utilize Lantus and NovoLog per protocol while hospitalized History of coronary artery disease S/p BRANDI to LAD Continue aspirin, statin, metoprolol, isosorbide, and losartan Hypertension BP stable currently Continue his home medication of losartan, metoprolol, amlodipine and Imdur History of anemia No active signs of bleeding Hgb stable History of thrombocytopenia Platelets stable DVT prophylaxis: SQ Lovenox Dispo: Pending, awaiting possible placement to [facility]. Caity updated over the phone. Awaiting placement Admission and Anticipated Discharge Date Admission Date: February 13, 2021 Subjective Patient seen and examined in follow-up for UTI. Patient confused however pleasant. Sitting in bedside chair. Offers no complaints, does not appear to be in any acute distress. Unable to obtain ROS secondary to cognitive status. 02/20/2021 The patient was seen and examined in medical floor He remains stable and denies any symptoms 02/21/2021 The patient was seen and examined in medical floor He has been stable without any significant symptoms Pleasantly confused with history of dementia Review of Systems Review of Systems: All systems reviewed and are unremarkable except as noted below Musculoskeletal: Weakness Physical Exam Physical Exam: Lying in bed without any acute distress Constitutional: well developed, well nourished, + ill appearing and average body habitus Eyes: PERRL, conjunctivae normal, anicteric sclerae ENMT: external ear and nose normal, oropharynx normal Neck: trachea midline, no thyromegaly Respiratory: no respiratory distress Auscultation: + diminished lung sounds; no crackles and no wheezes Cardiovascular: Rate/Rhythm: regular rate and regular rhythm; not tachycardic Heart Sounds: normal S1 and normal S2; no murmur Extremities: no edema Gastrointestinal (Abdomen): Inspection/Auscultation: normal bowel sounds; abdomen not distended Percussion/Palpation: abdomen soft; abdomen nontender Musculoskeletal: No acute arthritis in any joint Neurologic: Alert and awake. Less communicative. Pleasantly confused. Generally weak Results & Data Results & Data ([facility]) Vital Signs (Past 12 Hours) Vital Signs Temp Pulse Resp BP Pulse Ox 02/21/21 08:08 36.3 C L 60 17 152/54 H 97 Medications Administered Current Inpatient Medications Acetaminophen (Acetaminophen 325 Mg Tab) 650 mg PO Q4H PRN PRN Reason: pain/fever Stop: 03/15/21 06:11 Amlodipine Besylate (Amlodipine Besylate 5 Mg Tab) 5 mg PO DAILY [facility] Stop: 03/15/21 08:59 Last Admin: 02/21/21 08:25 Dose: 5 mg Documented by: Amoxicillin/Clavulanate Potassium (Amoxicillin/Clavulanate 875 Mg Tab) 1 tab PO BIDM [facility]; Protocol Stop: 02/26/21 16:59 Last Admin: 02/21/21 08:25 Dose: 1 tab Documented by: Aspirin (Aspirin 81 Mg Ectab) 81 mg PO DAILY [facility] Stop: 03/15/21 08:59 Last Admin: 02/21/21 08:25 Dose: 81 mg Documented by: Atorvastatin Calcium (Atorvastatin 40 Mg Tab) 80 mg PO DAILY [facility] Stop: 03/15/21 08:59 Last Admin: 02/21/21 08:27 Dose: 80 mg Documented by: Dextrose (Dextrose 50% 50 Ml Syringe) 25 - 50 ml IV UD PRN; Protocol PRN Reason: Hypoglycemia Protocol Stop: 03/15/21 06:11 Docusate Sodium (Docusate Sodium Syrup 100 Mg/10 Ml Udc) 100 mg PO BID [facility] Stop: 03/21/21 20:59 Last Admin: 02/21/21 08:25 Dose: 100 mg Documented by: Enoxaparin Sodium (Enoxaparin Inj 30 Mg/0.3 Ml Syr) 30 mg SQ QAM [facility] Stop: 03/15/21 08:59 Last Admin: 02/21/21 08:26 Dose: 30 mg Documented by: Glucagon (Glucagon For Inj 1 Mg Vial) 1 mg SQ UD PRN; Protocol PRN Reason: Hypoglycemia Protocol Stop: 03/15/21 06:11 Glucose (Glucose 10 Tabs/Tube) 4 - 8 tabs PO UD PRN; Protocol PRN Reason: Hypoglycemia Protocol Stop: 03/15/21 06:11 Glucose (Glucose 40% Gel 15 Gm Tube) 15 - 30 gm PO UD PRN; Protocol PRN Reason: Hypoglycemia Protocol Stop: 03/15/21 06:11 Promethazine HCl 12.5 mg/ (Sodium Chloride) 50.5 mls @ 202 mls/hr IV Q6H PRN PRN Reason: Nausea And Vomiting Stop: 03/15/21 06:11 Insulin Aspart (Insulin Aspart Per Unit) 0 units SC ACHS [facility] Stop: 03/15/21 07:29 Last Admin: 02/21/21 12:46 Dose: 6 units Documented by: Insulin Glargine (Insulin Glargine Solostar 100 Units/Ml 3 Ml Pen) 5 units SC DAILY [facility] Stop: 03/15/21 08:59 Last Admin: 02/21/21 08:28 Dose: 5 units Documented by: Isosorbide Mononitrate (Isosorbide [place] Extended Rel 60 Mg Tabcr) 60 mg PO QAM [facility] Stop: 03/15/21 08:59 Last Admin: 02/21/21 08:26 Dose: 60 mg Documented by: Losartan Potassium (Losartan Potassium 50 Mg Tab) 100 mg PO DAILY [facility] Stop: 03/15/21 08:59 Last Admin: 02/21/21 08:27 Dose: 100 mg Documented by: Metoprolol Succinate (Metoprolol Succ 25mg Ext Rel Tab) 12.5 mg PO DAILY [facility] Stop: 03/15/21 08:59 Last Admin: 02/21/21 08:27 Dose: 12.5 mg Documented by: Miscellaneous (Carbohydrates For Hypoglycemia ) 15 - 30 gm PO UD PRN PRN Reason: Hypoglycemia Protocol Stop: 03/15/21 06:11 Olanzapine (Olanzapine 10 Mg/2.1 Ml Sdv) 2.5 mg IM Q4H PRN PRN Reason: Anxiety/Agitation Stop: 03/15/21 06:11 Quetiapine Fumarate (Quetiapine Fumarate 25 Mg Tablet) 12.5 mg PO BID@0900,1900 [facility] Stop: 03/15/21 08:59 Last Admin: 02/21/21 08:24 Dose: 12.5 mg Documented by: Tamsulosin HCl (Tamsulosin Hcl 0.4 Mg Cap) 0.4 mg PO QAM [facility] Stop: 03/15/21 08:59 Last Admin: 02/21/21 08:27 Dose: 0.4 mg Documented by:
[2021-02-22] MEDS: AMOXICILLIN/CLAVULANATE 875 MG TAB PO SCH ×2 (08:29→17:17)
[2021-02-22] MEDS: ASPIRIN 81 MG ECTAB PO SCH (08:30)
[2021-02-22] MEDS: amLODIPine BESYLATE 5 MG TAB PO SCH (08:30)
[2021-02-22] MEDS: ENOXAPARIN INJ 30 MG/0.3 ML SYR SQ SCH (08:31)
[2021-02-22] MEDS: METOPROLOL SUCC 25MG EXT REL TAB PO SCH (08:32)
[2021-02-22] MEDS: QUEtiapine FUMARATE 25 MG TABLET PO SCH ×2 (08:32→17:42)
[2021-02-22] MEDS: TAMSULOSIN HCL 0.4 MG CAP PO SCH (08:33)
[2021-02-22] MEDS: ATORVASTATIN 40 MG TAB PO SCH (08:34)
[2021-02-22] MEDS: ISOSORBIDE MONO EXTENDED REL 60 MG TABCR PO SCH (08:34)
[2021-02-22] MEDS: LOSARTAN POTASSIUM 50 MG TAB PO SCH (08:34)
[2021-02-22] MEDS: DOCUSATE SODIUM SYRUP 100 MG/10 ML UDC PO SCH ×2 (08:35→21:09)
[2021-02-22] MEDS: INSULIN GLARGINE SOLOSTAR 100 UNITS/ML 3 ML PEN SC SCH (08:36)
[2021-02-22] MEDS: INSULIN ASPART PER UNIT SC SCH ×4 (09:15→21:09)
--- NOTE | 2021-02-22 17:28 | Hospitalist Progress Note ---
Date of Service February 22, 2021 Assessment & Plan (1) Urinary tract infection: Plan: CAUTI Present on admission - noted purulent penile drainage and lower abdominal pain Admission CT ABD/pelvis unremarkable for acute findings Urine culture grew Enterococcus species-Pansensitive Culture from the penis drainage grew MSSA Cefepime (02/13 -02/16), Vanco (02/15-02/16) Transitioned to p.o. Augmentin on 02/16 (PCN allergy noted -no history of anaphylaxis, has tolerated cefepime and ceftriaxone, tolerating Augmentin without problem) We will continue antibiotic for a total of 14 days Has chronic Bautista in situ and will change prior to discharge No fever and/or chills Remains stable to be transferred Urinary retention Bautista cathwas placed during last admission -changed on 02/13 Continue Flomax Outpatient follow-up with urology Metabolic encephalopathy Treated and resolved Pleasantly confused but no acute confusion History of tachybrady syndrome S/p pacemaker, no acute issues Dementia Irritable however not agitated. Answers yes/no or in short sentences Continue quetiapine 12.5 mg twice daily No acute delirium History of severe aortic regurgitation Recent Cardiology visit recommended nonsurgical medical management No cardiac symptoms Diabetes Most recent hemoglobin A1c 7.1 Hold oral agents and utilize Lantus and NovoLog per protocol while hospitalized History of coronary artery disease S/p BRANDI to LAD Continue aspirin, statin, metoprolol, isosorbide, and losartan Hypertension BP stable currently Continue his home medication of losartan, metoprolol, amlodipine and Imdur History of anemia No active signs of bleeding Hgb stable History of thrombocytopenia Platelets stable DVT prophylaxis: SQ Lovenox Dispo: Pending, awaiting possible placement to [facility]. Caity updated over the phone. Awaiting placement Admission and Anticipated Discharge Date Admission Date: February 13, 2021 Subjective Patient seen and examined in follow-up for UTI. Patient confused however pleasant. Sitting in bedside chair. Offers no complaints, does not appear to be in any acute distress. Unable to obtain ROS secondary to cognitive status. 02/20/2021 The patient was seen and examined in medical floor He remains stable and denies any symptoms 02/21/2021 The patient was seen and examined in medical floor He has been stable without any significant symptoms Pleasantly confused with history of dementia 02/22/2021 The patient was seen and examined in medical floor He remains stable without any symptoms Review of Systems Review of Systems: All systems reviewed and are unremarkable except as noted below Musculoskeletal: Weakness Physical Exam Physical Exam: Sitting on a chair without any acute distress Constitutional: well developed, well nourished, + ill appearing and average body habitus Eyes: PERRL, conjunctivae normal, anicteric sclerae ENMT: external ear and nose normal, oropharynx normal Neck: trachea midline, no thyromegaly Respiratory: no respiratory distress Auscultation: + diminished lung sounds; no crackles and no wheezes Cardiovascular: Rate/Rhythm: regular rate and regular rhythm; not tachycardic Heart Sounds: normal S1 and normal S2; no murmur Extremities: no edema Gastrointestinal (Abdomen): Inspection/Auscultation: normal bowel sounds; abdomen not distended Percussion/Palpation: abdomen soft; abdomen nontender Musculoskeletal: No acute arthritis in any joint Neurologic: Alert and awake. Generally confused Results & Data Results & Data ([facility]) Vital Signs (Past 12 Hours) Vital Signs Temp Pulse Pulse Resp BP Pulse Ox 02/22/21 15:06 36.6 C 73 18 122/54 L 97 02/22/21 07:20 36.8 C 59 L 15 136/46 L 96 Medications Administered Current Inpatient Medications Acetaminophen (Acetaminophen 325 Mg Tab) 650 mg PO Q4H PRN PRN Reason: pain/fever Stop: 03/15/21 06:11 Amlodipine Besylate (Amlodipine Besylate 5 Mg Tab) 5 mg PO DAILY [facility] Stop: 03/15/21 08:59 Last Admin: 02/22/21 08:30 Dose: 5 mg Documented by: Amoxicillin/Clavulanate Potassium (Amoxicillin/Clavulanate 875 Mg Tab) 1 tab PO BIDM [facility]; Protocol Stop: 02/26/21 16:59 Last Admin: 02/22/21 17:17 Dose: 1 tab Documented by: Aspirin (Aspirin 81 Mg Ectab) 81 mg PO DAILY [facility] Stop: 03/15/21 08:59 Last Admin: 02/22/21 08:30 Dose: 81 mg Documented by: Atorvastatin Calcium (Atorvastatin 40 Mg Tab) 80 mg PO DAILY [facility] Stop: 03/15/21 08:59 Last Admin: 02/22/21 08:34 Dose: 80 mg Documented by: Dextrose (Dextrose 50% 50 Ml Syringe) 25 - 50 ml IV UD PRN; Protocol PRN Reason: Hypoglycemia Protocol Stop: 03/15/21 06:11 Docusate Sodium (Docusate Sodium Syrup 100 Mg/10 Ml Udc) 100 mg PO BID [facility] Stop: 03/21/21 20:59 Last Admin: 02/22/21 08:35 Dose: 100 mg Documented by: Enoxaparin Sodium (Enoxaparin Inj 30 Mg/0.3 Ml Syr) 30 mg SQ QAM [facility] Stop: 03/15/21 08:59 Last Admin: 02/22/21 08:31 Dose: 30 mg Documented by: Glucagon (Glucagon For Inj 1 Mg Vial) 1 mg SQ UD PRN; Protocol PRN Reason: Hypoglycemia Protocol Stop: 03/15/21 06:11 Glucose (Glucose 10 Tabs/Tube) 4 - 8 tabs PO UD PRN; Protocol PRN Reason: Hypoglycemia Protocol Stop: 03/15/21 06:11 Glucose (Glucose 40% Gel 15 Gm Tube) 15 - 30 gm PO UD PRN; Protocol PRN Reason: Hypoglycemia Protocol Stop: 03/15/21 06:11 Promethazine HCl 12.5 mg/ (Sodium Chloride) 50.5 mls @ 202 mls/hr IV Q6H PRN PRN Reason: Nausea And Vomiting Stop: 03/15/21 06:11 Insulin Aspart (Insulin Aspart Per Unit) 0 units SC ACHS [facility] Stop: 03/15/21 07:29 Last Admin: 02/22/21 12:24 Dose: 6 units Documented by: Insulin Glargine (Insulin Glargine Solostar 100 Units/Ml 3 Ml Pen) 5 units SC DAILY [facility] Stop: 03/15/21 08:59 Last Admin: 02/22/21 08:36 Dose: 5 units Documented by: Isosorbide Mononitrate (Isosorbide [place] Extended Rel 60 Mg Tabcr) 60 mg PO QAM [facility] Stop: 03/15/21 08:59 Last Admin: 02/22/21 08:34 Dose: 60 mg Documented by: Losartan Potassium (Losartan Potassium 50 Mg Tab) 100 mg PO DAILY [facility] Stop: 03/15/21 08:59 Last Admin: 02/22/21 08:34 Dose: 100 mg Documented by: Metoprolol Succinate (Metoprolol Succ 25mg Ext Rel Tab) 12.5 mg PO DAILY [facility] Stop: 03/15/21 08:59 Last Admin: 02/22/21 08:32 Dose: 12.5 mg Documented by: Miscellaneous (Carbohydrates For Hypoglycemia ) 15 - 30 gm PO UD PRN PRN Reason: Hypoglycemia Protocol Stop: 03/15/21 06:11 Olanzapine (Olanzapine 10 Mg/2.1 Ml Sdv) 2.5 mg IM Q4H PRN PRN Reason: Anxiety/Agitation Stop: 03/15/21 06:11 Quetiapine Fumarate (Quetiapine Fumarate 25 Mg Tablet) 12.5 mg PO BID@0900,1900 [facility] Stop: 03/15/21 08:59 Last Admin: 02/22/21 08:32 Dose: 12.5 mg Documented by: Tamsulosin HCl (Tamsulosin Hcl 0.4 Mg Cap) 0.4 mg PO QAM [facility] Stop: 03/15/21 08:59 Last Admin: 02/22/21 08:33 Dose: 0.4 mg Documented by:
[2021-02-23] MEDS: AMOXICILLIN/CLAVULANATE 875 MG TAB PO SCH (08:16)
[2021-02-23] MEDS: ISOSORBIDE MONO EXTENDED REL 60 MG TABCR PO SCH (08:17)
[2021-02-23] MEDS: QUEtiapine FUMARATE 25 MG TABLET PO SCH (08:17)
[2021-02-23] MEDS: DOCUSATE SODIUM SYRUP 100 MG/10 ML UDC PO SCH (08:17)
[2021-02-23] MEDS: TAMSULOSIN HCL 0.4 MG CAP PO SCH (08:17)
[2021-02-23] MEDS: ATORVASTATIN 40 MG TAB PO SCH (08:17)
[2021-02-23] MEDS: ENOXAPARIN INJ 30 MG/0.3 ML SYR SQ SCH (08:17)
[2021-02-23] MEDS: ASPIRIN 81 MG ECTAB PO SCH (08:17)
[2021-02-23] MEDS: LOSARTAN POTASSIUM 50 MG TAB PO SCH (08:17)
[2021-02-23] MEDS: amLODIPine BESYLATE 5 MG TAB PO SCH (08:17)
[2021-02-23] MEDS: METOPROLOL SUCC 25MG EXT REL TAB PO SCH (08:17)
[2021-02-23] MEDS: INSULIN GLARGINE SOLOSTAR 100 UNITS/ML 3 ML PEN SC SCH (08:18)
[2021-02-23] MEDS: INSULIN ASPART PER UNIT SC SCH ×2 (08:39→12:50)
--- NOTE | 2021-02-23 12:24 | Hospitalist Progress Note ---
Date of Service February 23, 2021 Assessment & Plan (1) Urinary tract infection: Plan: CAUTI Present on admission - noted purulent penile drainage and lower abdominal pain Admission CT ABD/pelvis unremarkable for acute findings Urine culture grew Enterococcus species-Pansensitive Culture from the penis drainage grew MSSA Cefepime (02/13 -02/16), Vanco (02/15-02/16) Transitioned to p.o. Augmentin on 02/16 (PCN allergy noted -no history of anaphylaxis, has tolerated cefepime and ceftriaxone, tolerating Augmentin without problem) We will continue antibiotic for a total of 14 days Has chronic Bautista in situ and will change prior to discharge No fever and/or chills Remains stable to be transferred We will continue antibiotic until 14 of this month We will change his Bautista catheter as mentioned Urinary retention Bautista cathwas placed during last admission -changed on 02/13 Continue Flomax Outpatient follow-up with urology We will change his Bautista catheter due to current infection Metabolic encephalopathy Treated and resolved Pleasantly confused but no acute confusion History of tachybrady syndrome S/p pacemaker, no acute issues Dementia Irritable however not agitated. Answers yes/no or in short sentences Continue quetiapine 12.5 mg twice daily No acute delirium History of severe aortic regurgitation Recent Cardiology visit recommended nonsurgical medical management No cardiac symptoms Diabetes Most recent hemoglobin A1c 7.1 Hold oral agents and utilize Lantus and NovoLog per protocol while hospitalized History of coronary artery disease S/p BRANDI to LAD Continue aspirin, statin, metoprolol, isosorbide, and losartan Hypertension BP stable currently Continue his home medication of losartan, metoprolol, amlodipine and Imdur History of anemia No active signs of bleeding Hgb stable History of thrombocytopenia Platelets stable DVT prophylaxis: SQ Lovenox Dispo: Pending, awaiting possible placement to [facility]. Caity updated over the phone. He will be transferred to [facility] today Admission and Anticipated Discharge Date Admission Date: February 13, 2021 Subjective Patient seen and examined in follow-up for UTI. Patient confused however pleasant. Sitting in bedside chair. Offers no complaints, does not appear to be in any acute distress. Unable to obtain ROS secondary to cognitive status. 02/20/2021 The patient was seen and examined in medical floor He remains stable and denies any symptoms 02/21/2021 The patient was seen and examined in medical floor He has been stable without any significant symptoms Pleasantly confused with history of dementia 02/22/2021 The patient was seen and examined in medical floor He remains stable without any symptoms 02/23/2021 The patient was seen and examined in medical floor He has been much better today and is sitting on a chair Denies any chest pain, palpitation, any nausea or vomiting Review of Systems Review of Systems: All systems reviewed and are unremarkable except as noted below Physical Exam Physical Exam: Sitting on a chair without any acute distress Constitutional: well developed, well nourished, + ill appearing and average body habitus Eyes: PERRL, conjunctivae normal, anicteric sclerae ENMT: external ear and nose normal, oropharynx normal Neck: trachea midline, no thyromegaly Respiratory: no respiratory distress Auscultation: + diminished lung sounds; no crackles and no wheezes Cardiovascular: Rate/Rhythm: regular rate and regular rhythm; not tachycardic Heart Sounds: normal S1 and normal S2; no murmur Extremities: no edema Gastrointestinal (Abdomen): Inspection/Auscultation: normal bowel sounds; abdomen not distended Percussion/Palpation: abdomen soft; abdomen nontender Musculoskeletal: No acute arthritis in any joint Neurologic: Alert and awake. Generally confused Results & Data Results & Data ([facility]) Vital Signs (Past 12 Hours) Vital Signs Temp Pulse Pulse Pulse Pulse Resp BP 02/23/21 11:29 36.4 C L 70 59 L 56 L 60 16 123/43 L 02/23/21 07:46 36.4 C L 60 16 BP Pulse Ox 02/23/21 11:29 167/60 H 97 02/23/21 07:46 167/60 H 97 Medications Administered Current Inpatient Medications Acetaminophen (Acetaminophen 325 Mg Tab) 650 mg PO Q4H PRN PRN Reason: pain/fever Stop: 03/15/21 06:11 Amlodipine Besylate (Amlodipine Besylate 5 Mg Tab) 5 mg PO DAILY [facility] Stop: 03/15/21 08:59 Last Admin: 02/23/21 08:17 Dose: 5 mg Documented by: Amoxicillin/Clavulanate Potassium (Amoxicillin/Clavulanate 875 Mg Tab) 1 tab PO BIDM [facility]; Protocol Stop: 02/26/21 16:59 Last Admin: 02/23/21 08:16 Dose: 1 tab Documented by: Aspirin (Aspirin 81 Mg Ectab) 81 mg PO DAILY [facility] Stop: 03/15/21 08:59 Last Admin: 02/23/21 08:17 Dose: 81 mg Documented by: Atorvastatin Calcium (Atorvastatin 40 Mg Tab) 80 mg PO DAILY [facility] Stop: 03/15/21 08:59 Last Admin: 02/23/21 08:17 Dose: 80 mg Documented by: Dextrose (Dextrose 50% 50 Ml Syringe) 25 - 50 ml IV UD PRN; Protocol PRN Reason: Hypoglycemia Protocol Stop: 03/15/21 06:11 Docusate Sodium (Docusate Sodium Syrup 100 Mg/10 Ml Udc) 100 mg PO BID [facility] Stop: 03/21/21 20:59 Last Admin: 02/23/21 08:17 Dose: 100 mg Documented by: Enoxaparin Sodium (Enoxaparin Inj 30 Mg/0.3 Ml Syr) 30 mg SQ QAM [facility] Stop: 03/15/21 08:59 Last Admin: 02/23/21 08:17 Dose: 30 mg Documented by: Glucagon (Glucagon For Inj 1 Mg Vial) 1 mg SQ UD PRN; Protocol PRN Reason: Hypoglycemia Protocol Stop: 03/15/21 06:11 Glucose (Glucose 10 Tabs/Tube) 4 - 8 tabs PO UD PRN; Protocol PRN Reason: Hypoglycemia Protocol Stop: 03/15/21 06:11 Glucose (Glucose 40% Gel 15 Gm Tube) 15 - 30 gm PO UD PRN; Protocol PRN Reason: Hypoglycemia Protocol Stop: 03/15/21 06:11 Promethazine HCl 12.5 mg/ (Sodium Chloride) 50.5 mls @ 202 mls/hr IV Q6H PRN PRN Reason: Nausea And Vomiting Stop: 03/15/21 06:11 Insulin Aspart (Insulin Aspart Per Unit) 0 units SC ACHS [facility] Stop: 03/15/21 07:29 Last Admin: 02/23/21 08:39 Dose: 2 units Documented by: Insulin Glargine (Insulin Glargine Solostar 100 Units/Ml 3 Ml Pen) 5 units SC DAILY [facility] Stop: 03/15/21 08:59 Last Admin: 02/23/21 08:18 Dose: 5 units Documented by: Isosorbide Mononitrate (Isosorbide Starke Extended Rel 60 Mg Tabcr) 60 mg PO QAM [facility] Stop: 03/15/21 08:59 Last Admin: 02/23/21 08:17 Dose: 60 mg Documented by: Losartan Potassium (Losartan Potassium 50 Mg Tab) 100 mg PO DAILY [facility] Stop: 03/15/21 08:59 Last Admin: 02/23/21 08:17 Dose: 100 mg Documented by: Metoprolol Succinate (Metoprolol Succ 25mg Ext Rel Tab) 12.5 mg PO DAILY [facility] Stop: 03/15/21 08:59 Last Admin: 02/23/21 08:17 Dose: 12.5 mg Documented by: Miscellaneous (Carbohydrates For Hypoglycemia ) 15 - 30 gm PO UD PRN PRN Reason: Hypoglycemia Protocol Stop: 03/15/21 06:11 Olanzapine (Olanzapine 10 Mg/2.1 Ml Sdv) 2.5 mg IM Q4H PRN PRN Reason: Anxiety/Agitation Stop: 03/15/21 06:11 Quetiapine Fumarate (Quetiapine Fumarate 25 Mg Tablet) 12.5 mg PO BID@0900,1900 [facility] Stop: 03/15/21 08:59 Last Admin: 02/23/21 08:17 Dose: 12.5 mg Documented by: Tamsulosin HCl (Tamsulosin Hcl 0.4 Mg Cap) 0.4 mg PO QAM [facility] Stop: 03/15/21 08:59 Last Admin: 02/23/21 08:17 Dose: 0.4 mg Documented by:
--- NOTE | 2021-02-23 17:34 | Discharge Summary ---
Date of Service February 23, 2021 Admission HPI Per Admitting Provider History obtained from patient, family, and records. Limited history from patient secondary to dementia. Medical history significant for CAD status post stent, SSS status post PPM, severe aortic regurgitation, hypertension, hyperlipidemia, DM2 on oral meds, dementia, chronic anemia (baseline hemoglobin 12-13), possible BPH, past tobacco abuse. Last confinement January 24-2020 behavioral disturbance. Patient with urinary retention during confinement. Started on tamsulosin by urology for possible BPH. Patient discharge with Bautista catheter with instructions to follow-up with urology outpatient. Yesterday, patient noted to have purulent penile drainage with lower abdominal pain as per . Patient tugging at Bautista catheter from time to time as per . No fever, no chills, no chest pain, no S OB. Patient a little more confused than usual as per . Patient brought to the ER for evaluation. IV ceftriaxone given at the ER for possible UTI. Bautista catheter replaced at the ER. 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 Admission Exam Per Admitting Provider Physical Exam: GENERAL: Demented, no respiratory distress SKIN: Normal color, warm HEENT: Wagner palpebral conjunctivae, no ptosis, dry buccal mucosa NECK : Supple, no tenderness CHEST : CTA, no tenderness HEART : RRR, systolic murmur best heard over second right intercostal spaceno obvious murmurs ABDOMEN: Some distention, nontender EXTREMITIES : No LE swelling/tenderness, no other conspicuous deformities noted NEUROLOGIC : Demented, no facial asymmetry, no other gross focality Principal Diagnosis Catheter associated UTI, urinary retention, metabolic encephalopathy-resolved, dementia, aortic regurgitation, hypertension Discharge Exam Constitutional well developed, well nourished, + ill appearing and average body habitus Eyes PERRL, conjunctivae normal, anicteric sclerae ENMT external ear and nose normal, oropharynx normal Neck trachea midline, no thyromegaly Respiratory no respiratory distress Auscultation: + diminished lung sounds; no crackles and no wheezes Cardiovascular Rate/Rhythm: regular rate and regular rhythm; not tachycardic Heart Sounds: normal S1 and normal S2; no murmur Extremities: no edema Gastrointestinal (Abdomen) Inspection/Auscultation: normal bowel sounds; abdomen not distended Percussion/Palpation: abdomen soft; abdomen nontender Discharge Data Allergies Allergy/AdvReac Type Severity Reaction Status Date / Time Penicillins Allergy Intermediate TOES Verified 02/12/21 23:25 SWELL/ITCHY Consultations 02/13/21 01:25 ED Decision to Admit Stat Ordered Studies 02/13/21 02:53 CT abd pelvis IV con only Urgent Hospital Course (1) Urinary tract infection: CAUTI Present on admission - noted purulent penile drainage and lower abdominal pain Admission CT ABD/pelvis unremarkable for acute findings Urine culture grew Enterococcus species-Pansensitive Culture from the penis drainage grew MSSA Cefepime (02/13 -02/16), Vanco (02/15-02/16) Transitioned to p.o. Augmentin on 02/16 (PCN allergy noted -no history of anaphylaxis, has tolerated cefepime and ceftriaxone, tolerating Augmentin without problem) We will continue antibiotic for a total of 14 days Has chronic Bautista in situ and will change prior to discharge No fever and/or chills Remains stable to be transferred We will continue antibiotic until 14th of this month We will change his Bautista catheter as mentioned Urinary retention Bautista cathwas placed during last admission -changed on 02/13 Continue Flomax Outpatient follow-up with urology We will change his Bautista catheter due to current infection Metabolic encephalopathy Treated and resolved Pleasantly confused but no acute confusion History of tachybrady syndrome S/p pacemaker, no acute issues Dementia Irritable however not agitated. Answers yes/no or in short sentences Continue quetiapine 12.5 mg twice daily No acute delirium History of severe aortic regurgitation Recent Cardiology visit recommended nonsurgical medical management No cardiac symptoms Diabetes Most recent hemoglobin A1c 7.1 Hold oral agents and utilize Lantus and NovoLog per protocol while hospitalized History of coronary artery disease S/p BRANDI to LAD Continue aspirin, statin, metoprolol, isosorbide, and losartan Hypertension BP stable currently Continue his home medication of losartan, metoprolol, amlodipine and Imdur History of anemia No active signs of bleeding Hgb stable History of thrombocytopenia Platelets stable DVT prophylaxis: SQ Lovenox Dispo: Pending, awaiting possible placement to [facility]. Caity updated over the phone. He will be transferred to [facility] today Total Time Total Time Spent Total Time Spent (In Minutes): 40 minutes Discharge Plan Discharge Items Patient Disposition: Transfer [facility] Reason For Visit: DELIRIUM Discharge Diagnosis: Catheter associated UTI, urinary retention, metabolic encephalopathy-resolved, dementia, aortic regurgitation, hypertension Condition on Discharge: Fair Activity: Resume your previous activity Non-emergency contact: Primary Care Provider Call non-emergency contact if: you have any medication questions and your symptoms worsen Follow-up/Referrals: Reilly Rene MD [Primary Care Provider] - (Please make an appointment with your primary care provider within 7 days following discharge.) Diet: Carb Consistent or DM2 and Heart Healthy Diet Texture: Easy to Chew Addtl Attending Provider Instructions: Please take precautions to avoid fall Finish the course of antibiotic Management of catheter will be addressed by the urologist-Dr. Romero as an outpatient Pending Studies at Discharge: No Stand-Alone Forms: My [facility] Skilled Items Patient informed of condition?: Yes DNR: Yes Discharge Level of Care: Skilled Communicable Disease: No Discharge Prognosis: Stable Lines: None Urinary Catheter: Yes (Changed on 02/23/2021) Medications and DC Order Prescriptions: New amoxicillin-pot clavulanate [Augmentin] 875-125 mg Tablet 1 tab PO BIDM 3 Days Qty: 6 RF: 0 Lactinex 1 million cell tablet,chewable 1 tab PO BID Qty: 20 RF: 0 Continued cholecalciferol (vitamin D3) [Vitamin D3] 10 mcg (400 unit) Capsule 10 mcg PO DAILY RF: 0 amlodipine 5 mg Tablet 5 mg PO DAILY RF: 0 isosorbide mononitrate 60 mg Tablet Extended Release 24 Hr 60 mg PO QAM RF: 0 hydrochlorothiazide 12.5 mg Capsule 12.5 mg PO DAILY RF: 0 glipizide 5 mg Tablet 5 mg PO BID RF: 0 lorazepam 0.5 mg Tablet 0.5 mg PO BID PRN (Reason: Anxiety) RF: 0 metoprolol succinate 25 mg Capsule,Sprinkle,Er 24hr 12.5 mg PO DAILY RF: 0 metformin 500 mg Tablet 500 mg PO BID RF: 0 atorvastatin 80 mg Tablet 80 mg PO DAILY RF: 0 nitroglycerin 0.4 mg tablet, sublingual 0.4 mg sublingual DIRECTED PRN (Reason: Chest Pain) RF: 0 losartan 100 mg Tablet 100 mg PO DAILY RF: 0 aspirin 81 mg Tablet,Delayed Release (Dr/Ec) 81 mg PO DAILY RF: 0 quetiapine 25 mg Tablet 12.5 mg PO BID@0900,1900 Qty: 30 RF: 0 tamsulosin 0.4 mg Capsule 0.4 mg PO QAM 30 Days Qty: 30 RF: 0 magnesium oxide 400 mg (241.3 mg magnesium) Tablet 400 mg PO QAM Qty: 5 RF: 0 Discharge Orders: Discharge Order (Routine); Ordered 02/23/21 Ordered By: Pina Napier Admission Data Admit Date/Time: 02/13/21 02:53 Attending Provider: Pina Napier Admit Provider: Devendra Peña Primary Care Provider: Reilly Rene Other Providers: Devendra Peña ; [place] ; Iram Monzon Other Interventions: Discharge Summary Assessment (RN) Last Done: 02/23/21 11:29
== END 2021-02-23 14:45 | DRG 698 ==
LOC: ED 22:25 → SUATTDRO 02-13 02:53 → EDINP 02-13 02:53 → 3E 02-13 06:10